=== PATIENT | female | born 1935 | race Caucasian/White ===

== ENCOUNTER 2017-09-03 10:56 | Observation (INO) ==
--- NOTE | 2017-09-03 12:18 | Emergency Department Note ---
Disposition Clinical Impression: Abdominal wall abscess at site of surgical wound Disposition: Admitted As Inpatient Condition: Fair Time of Disposition: 15:26 Abdominal Pain HPI - General Chief Complaint: ED Abdominal Pain Stated Complaint: surgical site pain/complication Time Seen by Provider: 09/03/17 11:26 Source: patient Mode of arrival: ambulatory Nursing Notes Reviewed: Yes Vital Signs Reviewed: Yes - History of Present Illness HPI Narrative: 81-year-old female presents of the emergency department for assessment of ongoing pain, redness, swelling at surgical sites post emergent open appendectomy on 08/17/17. Surgical sites have been tender and mildly erythematous throughout post op course. Patient tells me redness and tenderness are progressively worsening particularly in the last 2 days. She has been having fevers, chills, sweats, and tells me patient has had some confusion over the past 2 days. Has completed course of ciprofloxacin and is currently on PO bactrim. Patient has also had nausea, vomiting, and anorexia for 2 days. Pt Subjective Complaint: abdominal pain (They mainly localizes to surgical sites , i.e., periumbilical trocar site as well as right lower quadrant incisional site.) Onset (ago): week(s) Pain Scale: 7 Worsens with: other (Direct palpation) Associated symptoms: Reports: nausea, vomiting, fever, chills, anorexia. Denies : diarrhea, constipation, dysuria, hematemesis, hematochezia, melena, hematuria , syncope Treatments prior to arrival: none (has not tried anything today for this pain.) - Related Data Home Medications Medication Instructions Recorded Confirmed Iodine [Kelp] 150 mcg PO DAILY 09/03/17 09/03/17 Methyl Folate 400 mcg PO DAILY 09/03/17 09/03/17 Oxycodone HCl/Acetaminophen 1 - 2 each PO Q4H PRN 09/03/17 09/03/17 [Percocet 10-325 mg Tablet] Sulfamethoxazole/Trimeth DS 1 each PO BID 09/03/17 09/03/17 [Bactrim DS] Thyroid,Pork [[place] Thyroid] 60 mg PO DAILY 09/03/17 09/03/17 hydrOXYzine pamoate [HydrOXYzine 25 mg PO HS 09/03/17 09/03/17 Pamoate] Allergies Allergy/AdvReac Type Severity Reaction Status Date / Time No Known Allergies Allergy Verified 09/03/17 11:02 Review of Systems: As Per HPI Constitutional: Reports: fever, chills Eyes: Denies: vision change Cardiovascular: Denies: chest pain, palpitations Respiratory: Denies: cough, dyspnea Neurological: Reports: confusion. Denies: headache, vertigo Abdominal Pain PMH - Past Medical History Medical history: Reports: thyroid disease Female Surgical History: Reports: appendectomy (08/17/17), knee replacement - Social History Smoking status: Former smoker Alcohol use: Reports: rarely Drug use: Reports: none Physical Exam - General Limitations: no limitations General appearance: alert, in no apparent distress - Head Head exam: atraumatic, normocephalic - Eye Eye exam: Present: PERRL, EOMI. Absent: scleral icterus, conjunctival injection - ENT ENT exam: mucous membranes moist - Respiratory Respiratory exam: Present: normal lung sounds bilaterally - Cardiovascular Cardiovascular exam: Absent: systolic murmur, diastolic murmur - Abdominal Exam Abdominal exam: Present: soft, tenderness (Localizing to erythematous surgical site areas.), hypoactive bowel sounds, other (Patient has some notable erythema and induration around periumbilical trocar site; this region of swelling is not fluctuate on palpation.). Absent: distention, guarding, rebound, rigidity - Extremities Exam Extremities exam: Absent: pedal edema - Neurological Exam Neurological exam: Present: alert, other (Espresso some uncertainty about the specific date of her surgery; is concerned the patient has been somewhat confused over this time course.) - Psychiatric Psychiatric exam: Present: normal affect - Skin Skin exam: Present: warm, dry, intact. Absent: diaphoresis, pallor Course Course Narrative: Patient is having ongoing and significant pain that seems to be worsening since her surgery to a half weeks ago. Pain is exquisite and worse with direct palpation and movement that affects the localized area of inflammation. Patient does have tenderness on palpation. Patient has also had some confusion , fevers, chills, and malaise. Will start on IV antibiotics and get abdominal CT. - Reevaluation(s) Reevaluation #1: patient is comfortable. Discussed CT results which demonstrated anterior abdominal wall abscess which will likely need to be incised and drained by general surgeon. Patient is agreeable to be admitted for further IV antibiotics and surgical consult. Time: 15:19 - Consultations Consultation #1: Paged and spoke to Dr. Healy. Patient and family are highly opposed to transfer to [facility] and prefer to stay here for further therapy. Discussed case with Dr. Healy; she agrees to consult on case upon admission to medicine. Time: 15:00 Consultation #2: Discussed case with Dr. Wild, hospitalist. Accepts patient for continued antibiotic therapy and surgical consultation. Vital Signs Temperature 100.1 F H 09/03/17 11:02 Pulse Rate 67 09/03/17 11:02 Respiratory Rate 18 09/03/17 11:02 Blood Pressure 127/61 09/03/17 11:02 O2 Sat by Pulse Oximetry 96 09/03/17 11:02 Temperature 98.3 F 09/03/17 23:07 Pulse Rate 71 09/03/17 23:07 Respiratory Rate 18 09/03/17 23:07 Blood Pressure 116/60 09/03/17 23:07 O2 Sat by Pulse Oximetry 96 09/03/17 23:07 Oxygen Delivery Oxygen Delivery Room Air Abdominal Pain - MDM Narrative Medical decision making narrative: Patient's apparent abdominal wall cellulitis/abscess has not responded to OP oral antibiotics. Patient has also been having some confusion during this time period. Will admit to hospitalist service for ongoing antibiotic therapy as well as to seek surgical consult for infection source control. - Lab Data Lab results reviewed: Yes I reviewed the patient's lab results. Lab results narrative: Laboratory Last Values WBC 10.7 K/mcL (4.3-11.1) 09/03/17 12:21 RBC 3.93 M/mcL (3.82-4.97) 09/03/17 12:21 Hgb 11.0 g/dL (11.5-15.4) L 09/03/17 12:21 Hct 34.5 % (35.3-44.9) L 09/03/17 12:21 MCV 87.8 fL (83.0-100.0) 09/03/17 12:21 MCH 28.0 pg (28.0-33.3) 09/03/17 12:21 MCHC 31.9 g/dL (31.6-35.5) 09/03/17 12:21 RDW 13.2 % (11.5-14.5) 09/03/17 12:21 Plt Count 300 K/mcL (140-400) 09/03/17 12:21 MPV 10.2 fL (9.4-12.4) 09/03/17 12:21 Immature Gran % 0.3 % (0-4) 09/03/17 12:21 Seg Neutrophils % 73.9 % 09/03/17 12:21 Lymphocytes % 12.8 % 09/03/17 12:21 Monocytes % 11.9 % 09/03/17 12:21 Eosinophils % 0.7 % 09/03/17 12:21 Basophils % 0.4 % 09/03/17 12:21 Neutrophils # 7.9 K/mcL (1.6-8.9) 09/03/17 12:21 Lymphocytes # 1.4 K/mcL (0.6-4.6) 09/03/17 12:21 Monocytes # 1.3 K/mcL (0.0-1.3) 09/03/17 12:21 Eosinophils # 0.1 K/mcL (0.0-0.6) 09/03/17 12:21 Basophils # 0.0 K/mcL (0.0-0.2) 09/03/17 12:21 Sodium 134 mEq/L (136-145) L 09/03/17 12:21 Potassium 4.7 mEq/L (3.5-4.5) H 09/03/17 12:21 Chloride 100 mEq/L (98-109) 09/03/17 12:21 Carbon Dioxide 27 mEq/L (19-29) 09/03/17 12:21 BUN 15 mg/dL (7-20) 09/03/17 12:21 Creatinine 0.79 mg/dL (0.57-1.11) 09/03/17 12:21 Est GFR ( Amer) > 60 (> 60) 09/03/17 12:21 Est GFR (Non-Af Amer) > 60 (> 60) 09/03/17 12:21 BUN/Creatinine Ratio 19 (6-26) 09/03/17 12:21 Glucose 114 mg/dL (70-99) H 09/03/17 12:21 Calculated Osmolality 280 (280-300) 09/03/17 12:21 Lactic Acid 1.0 mmol/L (0.5-2.2) 09/03/17 12:23 Calcium 8.8 mg/dL (8.6-10.8) 09/03/17 12:21 Total Bilirubin 0.6 mg/dL (0.2-1.2) 09/03/17 12:21 AST 12 Units/L (5-34) 09/03/17 12:21 ALT 10 Units/L (0-55) 09/03/17 12:21 Alkaline Phosphatase 57 Units/L (38-126) 09/03/17 12:21 Serum Total Protein 6.8 g/dL (6.0-8.3) 09/03/17 12:21 Albumin 2.9 g/dL (3.5-5.0) L 09/03/17 12:21 Globulin 3.9 g/dL (2.4-3.5) H 09/03/17 12:21 Albumin/Globulin Ratio 0.7 (1.1-2.2) L 09/03/17 12:21 Laboratory Last Values WBC 10.7 K/mcL (4.3-11.1) 09/03/17 12:21 RBC 3.93 M/mcL (3.82-4.97) 09/03/17 12:21 Hgb 11.0 g/dL (11.5-15.4) L 09/03/17 12:21 Hct 34.5 % (35.3-44.9) L 09/03/17 12:21 MCV 87.8 fL (83.0-100.0) 09/03/17 12:21 MCH 28.0 pg (28.0-33.3) 09/03/17 12:21 MCHC 31.9 g/dL (31.6-35.5) 09/03/17 12:21 RDW 13.2 % (11.5-14.5) 09/03/17 12:21 Plt Count 300 K/mcL (140-400) 09/03/17 12:21 MPV 10.2 fL (9.4-12.4) 09/03/17 12:21 Immature Gran % 0.3 % (0-4) 09/03/17 12:21 Seg Neutrophils % 73.9 % 09/03/17 12:21 Lymphocytes % 12.8 % 09/03/17 12:21 Monocytes % 11.9 % 09/03/17 12:21 Eosinophils % 0.7 % 09/03/17 12:21 Basophils % 0.4 % 09/03/17 12:21 Neutrophils # 7.9 K/mcL (1.6-8.9) 09/03/17 12:21 Lymphocytes # 1.4 K/mcL (0.6-4.6) 09/03/17 12:21 Monocytes # 1.3 K/mcL (0.0-1.3) 09/03/17 12:21 Eosinophils # 0.1 K/mcL (0.0-0.6) 09/03/17 12:21 Basophils # 0.0 K/mcL (0.0-0.2) 09/03/17 12:21 Sodium 134 mEq/L (136-145) L 09/03/17 12:21 Potassium 4.7 mEq/L (3.5-4.5) H 09/03/17 12:21 Chloride 100 mEq/L (98-109) 09/03/17 12:21 Carbon Dioxide 27 mEq/L (19-29) 09/03/17 12:21 BUN 15 mg/dL (7-20) 09/03/17 12:21 Creatinine 0.79 mg/dL (0.57-1.11) 09/03/17 12:21 Est GFR ( Amer) > 60 (> 60) 09/03/17 12:21 Est GFR (Non-Af Amer) > 60 (> 60) 09/03/17 12:21 BUN/Creatinine Ratio 19 (6-26) 09/03/17 12:21 Glucose 114 mg/dL (70-99) H 09/03/17 12:21 Calculated Osmolality 280 (280-300) 09/03/17 12:21 Lactic Acid 1.0 mmol/L (0.5-2.2) 09/03/17 12:23 Calcium 8.8 mg/dL (8.6-10.8) 09/03/17 12:21 Total Bilirubin 0.6 mg/dL (0.2-1.2) 09/03/17 12:21 AST 12 Units/L (5-34) 09/03/17 12:21 ALT 10 Units/L (0-55) 09/03/17 12:21 Alkaline Phosphatase 57 Units/L (38-126) 09/03/17 12:21 Serum Total Protein 6.8 g/dL (6.0-8.3) 09/03/17 12:21 Albumin 2.9 g/dL (3.5-5.0) L 09/03/17 12:21 Globulin 3.9 g/dL (2.4-3.5) H 09/03/17 12:21 Albumin/Globulin Ratio 0.7 (1.1-2.2) L 09/03/17 12:21 Result diagrams: 09/03/17 12:21 09/03/17 12:21 Lab Results 09/03/17 09/03/17 09/03/17 Range/Units 12:21 12:21 12:23 WBC 10.7 (4.3-11.1) K/mcL RBC 3.93 (3.82-4.97) M/mcL Hgb 11.0 L (11.5-15.4) g/dL Hct 34.5 L (35.3-44.9) % MCV 87.8 (83.0-100.0) fL MCH 28.0 (28.0-33.3) pg MCHC 31.9 (31.6-35.5) g/dL RDW 13.2 (11.5-14.5) % Plt Count 300 (140-400) K/mcL MPV 10.2 (9.4-12.4) fL Immature Gran % 0.3 (0-4) % Seg Neutrophils % 73.9 % Lymphocytes % 12.8 % Monocytes % 11.9 % Eosinophils % 0.7 % Basophils % 0.4 % Neutrophils # 7.9 (1.6-8.9) K/mcL Lymphocytes # 1.4 (0.6-4.6) K/mcL Monocytes # 1.3 (0.0-1.3) K/mcL Eosinophils # 0.1 (0.0-0.6) K/mcL Basophils # 0.0 (0.0-0.2) K/mcL Sodium 134 L (136-145) mEq/L Potassium 4.7 H (3.5-4.5) mEq/L Chloride 100 (98-109) mEq/L Carbon Dioxide 27 (19-29) mEq/L BUN 15 (7-20) mg/dL Creatinine 0.79 (0.57-1.11) mg/dL Est GFR ( Amer) > 60 (> 60) Est GFR (Non-Af Amer) > 60 (> 60) BUN/Creatinine Ratio 19 (6-26) Glucose 114 H (70-99) mg/dL Calculated Osmolality 280 (280-300) Lactic Acid 1.0 (0.5-2.2) mmol/L Calcium 8.8 (8.6-10.8) mg/dL Total Bilirubin 0.6 (0.2-1.2) mg/dL AST 12 (5-34) Units/L ALT 10 (0-55) Units/L Alkaline Phosphatase 57 (38-126) Units/L Serum Total Protein 6.8 (6.0-8.3) g/dL Albumin 2.9 L (3.5-5.0) g/dL Globulin 3.9 H (2.4-3.5) g/dL Albumin/Globulin Ratio 0.7 L (1.1-2.2) - Radiology Data Radiology results reviewed: Yes I reviewed the patient's radiology results. Abdomen/Pelvis CT 09/03/17 12:00 IMPRESSION: Focal fluid collection measuring 6.2 x 6 x 5.2 cm in the right anterior abdominal wall likely at the incision site from recent prior open appendectomy. Given the mild rim enhancement and surrounding inflammatory changes of the subcutaneous fat, abscess of the abdominal wall is high in the differential. No evidence of intraperitoneal abscess. Postsurgical changes status post recent appendectomy. D/ / 09/03/2017 14:08:14 Aiden Clements MD / kirstin Interpreting Provider: Aiden Clements MD
--- NOTE | 2017-09-03 12:25 | Emergency Department Note ---
START Narrative - START START: I examined this patient and my medical decision-making was reviewed with the LEASE OPERATOR/PA/Advanced Practice Nurse/Resident Physician. I agree with the documented findings, disposition and treatment plan as described except to the extent set forth below. The patient is post appendectomy several weeks ago and does have a very concerning story that she has had temperature reaching 101 degrees, hot and red abdomen which is mostly present around the umbilicus but also extends to both sides of the lower abdomen, she has been mildly confused according to the . My concerns for infection and the patient will have labs including lactate level, IV fluids, the patient will be admitted to the hospital. CT scan as well as ongoing assessment are pending. [id number]
[2017-09-03] MEDS ORDERED: 0.9 % Sodium Chloride 1,000 ML IVC ONE (12:40)
[2017-09-03] MEDS ORDERED: Vancomycin 1,000 MG in D5% in Water 250 ML IVPB ONE (12:40)
[2017-09-03 12:46] LABS: Basophils % 0.4 %; Eosinophils # 0.1 K/mcL (0.0-0.6); Eosinophils % 0.7 %; Hematocrit 34.5 % (35.3-44.9); Immature Granulocytes % 0.3 % (0-4); Lymphocytes # 1.4 K/mcL (0.6-4.6); Lymphocytes % 12.8 %; Mean Corpuscular HGB Conc 31.9 g/dL (31.6-35.5); Mean Corpuscular Volume 87.8 fL (83.0-100.0); Mean Platelet Volume 10.2 fL (9.4-12.4); Monocytes # 1.3 K/mcL (0.0-1.3); Monocytes % 11.9 %; Neutrophils # 7.9 K/mcL (1.6-8.9); Platelet Count 300 K/mcL (140-400); Red Blood Count 3.93 M/mcL (3.82-4.97); Red Cell Distribution Width 13.2 % (11.5-14.5); Segmented Neutrophils % 73.9 %
[2017-09-03 13:00] LABS: Alanine Aminotransferase 10 Units/L (0-55); Albumin 2.9 g/dL (3.5-5.0); Albumin/Globulin Ratio 0.7 (1.1-2.2); Alkaline Phosphatase 57 Units/L (38-126); Aspartate Amino Transferase 12 Units/L (5-34); BUN/Creatinine Ratio 19 (6-26); Bilirubin,Total 0.6 mg/dL (0.2-1.2); Blood Urea Nitrogen 15 mg/dL (7-20); Calcium 8.8 mg/dL (8.6-10.8); Carbon Dioxide 27 mEq/L (19-29); Chloride 100 mEq/L (98-109); Globulin 3.9 g/dL (2.4-3.5); Glucose 114 mg/dL (70-99); Osmolality,Calculated 280 (280-300); Potassium 4.7 mEq/L (3.5-4.5); Sodium 134 mEq/L (136-145); Total Protein 6.8 g/dL (6.0-8.3); eGFR For African Americans > 60 (> 60); eGFR For Non-African Americans > 60 (> 60)
[2017-09-03] MEDS: Piperacillin/Tazobactam 3.375 GM in D5% in Water (Mini-Bag+) 100 ML IVPB ONE ×2 (13:09→14:17)
[2017-09-03] MEDS ORDERED: D5% in Water (Mini-Bag+) 100 ML IVPB ONE (13:16)
[2017-09-03] MEDS: 0.9 % Sodium Chloride 1,000 ML IVC SCH ×2 (14:05→17:33)
--- NOTE | 2017-09-03 16:23 | Event Note ---
Date of Encounter: 09/03/17 Time of Encounter: 16:22 Patient examined with nurse practitioner. Abdominal wall abscess status post open appendectomy. Will give the patient vancomycin and Zosyn. Surgery consult. Symptomatic management for pain and nausea. Hydrate.
[2017-09-03] MEDS ORDERED: Lidocaine/EPI 1:100k 2% 20 ML VIAL INFILT ONE (16:26)
[2017-09-03] MEDS ORDERED: Lidocaine -MPF 2% 5 ML VIAL ONE (16:33)
[2017-09-03] MEDS ORDERED: Ondansetron 4 MG/2 ML VIAL IVP PRN (17:01)
[2017-09-03] MEDS ORDERED: Naloxone 0.4 MG/ML INJ IVP PRN (17:01)
[2017-09-03] MEDS ORDERED: *HR* Morphine 2 MG/ML SYRINGE IVP PRN (17:01)
[2017-09-03] MEDS ORDERED: *HR* OxyCODONE/APAP 5/325 TABLET PO PRN (17:04)
--- NOTE | 2017-09-03 17:14 | Internal Med History&Physical ---
Date of Encounter: 09/03/17 Time of Encounter: 17:10 Assessment and Plan (1) Abdominal wall abscess at site of surgical wound Current visit: Yes Status: Acute S/P appendectomy, surgical site pain, erythema, and tenderness, 6.2x 6x 5.2cm abscess found via CT abdomen. She does not appear toxic, CBC and CMP stable. Surgery consulted for drainage. Surgery at bedside in ED to perform drainage, abdomen soft with minimal amount of SS drainage s/p incision and drain Continue Vanc and Zosyn Cardiac monitoring (2) S/P appendectomy Current visit: Yes Status: Acute see plan above (3) Hypothyroidism Current visit: Yes Status: Acute stable, resume home medications Qualifiers: Qualified Code(s): E03.9 - Hypothyroidism, unspecified (4) DVT prophylaxis Current visit: Yes Status: Acute lovenox 40mg SC Internal Medicine - H&P: HPI Chief complaint: pain and erythema at surgical site Admitted From: Home Plans for Post Hospital Care: Home History of present illness: Ms. Reddy is a 81 year old female with hypothyroidism, who is 3 weeks s/p appendectomy. Presents to [facility] with a one-week history of pain, erythema and swelling at surgical site. The patient endorses fever, chills, sweats, nausea and vomiting as well as pain and surgical sites. A CT of the abdomen and pelvis was obtained which revealed an abscess in the right anterior abdominal wall measuring approximately 6.2 x 6 x 5.2 cm. The patient does not appear toxic CBC and CMP unremarkable. Admitted for further monitoring and surgical consult for drainage of abscess Past Med Surg Social Fam HX - Past Medical History Medical history: thyroid disease - Social History Smoking Status: Former smoker Alcohol use: rarely Drug use: none - Additional Family History Additional family history: Noncontributory Internal Medicine - H&P: Meds Iodine [Kelp] 150 mcg PO DAILY 09/03/17 [History] Methyl Folate 400 mcg PO DAILY 09/03/17 [History] Oxycodone HCl/Acetaminophen [Percocet 10-325 mg Tablet] 1 - 2 each PO Q4H PRN [History] Sulfamethoxazole/Trimeth DS [Bactrim DS] 1 each PO BID 09/03/17 [History] Thyroid,Pork [[place] Thyroid] 60 mg PO DAILY 09/03/17 [History] hydrOXYzine pamoate [HydrOXYzine Pamoate] 25 mg PO HS 09/03/17 [History] 3 Allergy/AdvReac Type Severity Reaction Status Date / Time No Known Allergies Allergy Verified 09/03/17 11:02 All Systems PM: A 10-system review of systems was performed and is negative for pertinent findings except as documented above in the HPI. - Constitutional Constitutional: chills, fever(s), no night sweats - EENT Eyes: no change in vision, no discharge, no pain, no photophobia Ears: no ear discharge, no ear pain, no tinnitus Nose, mouth and throat: no dysphagia, no nasal discharge, no neck pain, no sore throat - Cardiovascular Cardiovascular ROS IM: no chest pain, no diaphoresis, no dyspnea, no lightheadedness, no palpitations, no syncope - Respiratory Respiratory: no cough, no dyspnea, no wheezing, no excessive phlegm production - Gastrointestinal Gastrointestinal: abdominal pain, nausea, vomiting, no diarrhea, no hematemesis , no hematochezia, no melena - Genitourinary Genitourinary: no change in urinary stream, no dysuria, no flank pain, no hematuria - Musculoskeletal Musculoskeletal ROS IM: no numbness, no tingling - Integumentary Integumentary IM: erythema, no rash, no unusual bruising - Neurological Neurological ROS: no confusion, no convulsions, no focal weakness, no numbness, no tingling, no tremor(s) - Hematologic/Lymphatic Hematologic/Lymphatic: no easy bruising - Constitutional Vitals: Temp Pulse Resp BP Pulse Ox 100.1 F H 75 16 131/64 93 09/03/17 11:02 09/03/17 15:16 09/03/17 15:59 09/03/17 15:59 09/03/17 15:16 General appearance: Present: cooperative, A&O X 3, no acute distress, answers questions appropriately - Head Head exam: Present: atraumatic, normocephalic - Eye Eye exam: Present: EOMI, PERRL, conjuntiva pink, sclera anicteric Pupils: Present: PERRL - Neck Neck exam general surgery: Present: supple, trachea midline. Absent: lymphadenopathy - Respiratory Respiratory exam: Present: CTAB. Absent: accessory muscle use, rales, rhonchi, wheezes - Cardiovascular Cardiovascular exam: Present: RRR, +S1, +S2. Absent: diastolic murmur, gallop, rubs, systolic murmur - GI/Abdominal GI/Abdominal exam: Present: normal bowel sounds, soft, tenderness ( Periumbilical and left and right abdominal tenderness to palpation), no peritoneal signs. Absent: distended - Extremities Exam Extremities exam: Present: warm, radial pulses palpable and symmetrical. Absent : calf tenderness, cyanotic, pedal edema - Incison Incision: Present: inflamed, erythema, approximated - Neurological Exam Neurological exam: Present: CN II-XII intact, oriented X3, no focal deficits. Absent: pronater drift, facial droop, speech deficit - Skin Skin exam: Present: dry, intact Internal Med - H&P Results - Labs CBC & Chem 7: 09/03/17 12:21 09/03/17 12:21 - Diagnostic Studies CT scan - abdomen Status: image reviewed by me Additional comments: Fluid collection in right anterior abdominal wall approximately 6.2 x 6 x 5.2 cm likely an abscess status post open appendectomy
[2017-09-03] MEDS: *HR* OxyCODONE/APAP 10/325 TABLET PO PRN (17:33)
--- NOTE | 2017-09-03 18:02 | General Surgery Consult Note ---
<Alisa Vega - Last Filed: 09/03/17 18:25> Date of Encounter: 09/03/17 Time of Encounter: 17:03 Assessment and Plan (1) Abdominal wall abscess Current Visit: Yes Status: Acute Patient is s/p appendectomy 2/2 a ruptured appendix on 08/17/17. Patient has had fevers, chills, abdominal pain and redness. Vitals stable documented fever 100.1. WBC wnl. CT abdomen showed Focal fluid collection measuring 6.2 x 6 x 5.2 cm in the right anterior abdominal wall likely at the incision site from recent prior open appendectomy. Patient's abdominal wall abscess was incised and drained in the ER by Dr. Healy. Abscess cultures were obtained and sent to the lab. Gram stain came back negative for bacteria. Will repeat CT in the morning to see if entire abscess was accessed and no further I&D needed. Plan: -continue antibiotics, Zosyn - CT of the abdomen/pelvis in the morning - Wound cultures pending - Blood cultures pending (2) DVT prophylaxis Current Visit: Yes Status: Acute Lovenox 40mg SQ daily History of Present Illness Consult date: 09/03/17 Reason for consult: other (abdominal wall abscess) Requesting physician: Jackson Corrales History of present illness: Patient is a 81-year-old female with with a recent diagnosis of ruptured appendicitis and appendectomy on 08/17/17 presented to the ED with a chief complaint of increased redness and pain at the surgical sites and new onset of being disoriented per her daughter found to have an abdominal wall abscess. Patient was sent home from the hospital after 08/21/17 on ciprofloxacin after being on Zosyn during the hospital stay. Fpur days ago, patient began to develop a fever with a max of 102F and began having sharp shooting pains into her cervical area. She saw the surgeon yesterday and patient was diagnosed with a UTI and given Bactrim DS. Patient denies dysuria but did notice darkening in color of urine. Yesterday, she did have some N/V, fevers, chills and has had no appetite. Today, patient has been disoriented and daughter says she is never like that. CT of abdomen and pelvis showed Focal fluid collection measuring 6.2 x 6 x 5.2 cm in the right anterior abdominal wall. Patient was given Zosyn and Vancomycin in the ED and IV fluids started. Past Med Surg Social Fam HX - Past Medical History Medical history: thyroid disease - Past Surgical History Surgical History: appendectomy (open ), knee replacement (bilateral) - Social History Smoking Status: Former smoker (over 30 years ago) Alcohol use: rarely Drug use: none Medications and Allergies Iodine [Kelp] 150 mcg PO DAILY 09/03/17 [History] Methyl Folate 400 mcg PO DAILY 09/03/17 [History] Oxycodone HCl/Acetaminophen [Percocet 10-325 mg Tablet] 1 - 2 each PO Q4H PRN [History] Sulfamethoxazole/Trimeth DS [Bactrim DS] 1 each PO BID 09/03/17 [History] Thyroid,Pork [[place] Thyroid] 60 mg PO DAILY 09/03/17 [History] hydrOXYzine pamoate [HydrOXYzine Pamoate] 25 mg PO HS 09/03/17 [History] 3 Allergy/AdvReac Type Severity Reaction Status Date / Time No Known Allergies Allergy Verified 09/03/17 11:02 Review of Systems All systems PM: A 10-system review of systems was performed and is negative for pertinent findings except as documented above in the HPI. - Constitutional as per HPI General Surgery Exam Initial Vital Signs Temp Pulse Resp BP Pulse Ox 100.1 F H 67 18 127/61 96 09/03/17 11:02 09/03/17 11:02 09/03/17 11:02 09/03/17 11:02 09/03/17 11:02 - Additional Findings Constitutional: Alert, A&O x3, answering some questions incorrectly per daughter , has to be redirected with some questions, well nourished, well developed. Head: Normocephalic, atraumatic, normal contour and symmetric, no masses, lesions or scars Heart: Normal, regular rate and rhythm, no murmurs Lungs: Clear to auscultation, no wheezes, rales, or rhonchi Abdomen: redness, increased warmth, and tenderness in LLQ, area of induration with no flucuant mass felt, Soft, nondistended and no masses palpable, bowel sounds present and normal, no guarding or rigidity. Extremities: No clubbing, cyanosis, +1 non-pitting edema, radial pulse +2/4, capillary refill <2sec. Skin: Skin warm and dry, no jaundice Neurologic: Cranial nerves II through XII grossly intact, no focal deficits, strength within normal limits in all extremities Psych: Cooperative with exam, speech clear but sometime slow to respond, answering some questions appropriately but some in appropriately or delayed Exam Initial Vital Signs Temp Pulse Resp BP Pulse Ox 100.1 F H 67 18 127/61 96 09/03/17 11:02 09/03/17 11:02 09/03/17 11:02 09/03/17 11:02 09/03/17 11:02 Results - Labs 09/03/17 12:21 09/03/17 12:21 Abnormal lab results Hgb 11.0 g/dL (11.5-15.4) L 09/03/17 12:21 Hct 34.5 % (35.3-44.9) L 09/03/17 12:21 Sodium 134 mEq/L (136-145) L 09/03/17 12:21 Potassium 4.7 mEq/L (3.5-4.5) H 09/03/17 12:21 Glucose 114 mg/dL (70-99) H 09/03/17 12:21 Albumin 2.9 g/dL (3.5-5.0) L 09/03/17 12:21 Globulin 3.9 g/dL (2.4-3.5) H 09/03/17 12:21 Albumin/Globulin Ratio 0.7 (1.1-2.2) L 09/03/17 12:21 All other labs normal. - Imaging CT scan - abdomen: report reviewed, image reviewed Procedures: General Surgery - Abscess I/D Consent obtained: written consent Site: abdomen Side (if applicable): left Anesthetic used: lidocaine 1% Technique: incised with #11 blade Amount of fluid: 50 (ml ) Irrigation: Yes Irrigation fluid: saline flush Packing used: .50 inch plain Packing size: 1/2" Complications: none Consult Discharge Plan - Plan Referrals: Nurys Antunez MD [Primary Care Provider] - 09/22/17 2:40 pm <Rosa Healy - Last Filed: 09/04/17 16:41> Date of Encounter: 09/03/17 Assessment and Plan (1) Abdominal wall abscess at site of surgical wound Current Visit: Yes Status: Acute discussed with patient that she has abscess of abdominal wall soft tissue. will undergo bedside incision and drainage of abscess. risks and benefits discussed with patient and her daughter admit to hospitalist ok diet prn pain control Abx trend labs (2) Cellulitis of abdominal wall Current Visit: Yes Status: Acute (3) DVT prophylaxis Current Visit: Yes Status: Acute (4) S/P appendectomy Current Visit: Yes Status: Acute History of Present Illness History of present illness: 81 yr old female who underwent a lap converted to open appendectomy for gangrenous appendicitis 2 weeks ago at [facility] in [place]. She presented to her surgeon yesterday with complaints of erythema, warmth and pain to the infraumbilical area yesterday. She was told she was bruised and no antibiotics or imaging was ordered. Patient began having mental status changes and was brought to the ED by her daughter who is visiting from out of town and is a nurse. CT scan in the ED was done showing a subcutaneous abscess of the abdominal wall. WBC wnl. Past Med Surg Social Fam HX - Past Medical History Source: patient, obtained from family Review of Systems All systems PM: reviewed and no additional remarkable complaints except as stated All systems PM: A 10-system review of systems was performed and is negative for pertinent findings except as documented above in the HPI. - Constitutional as per HPI General Surgery Exam Initial Vital Signs Temp Pulse Resp BP Pulse Ox 100.1 F H 67 18 127/61 96 09/03/17 11:02 09/03/17 11:02 09/03/17 11:02 09/03/17 11:02 09/03/17 11:02 - General physical appearance well developed, well nourished, no distress, moderate pain - Eyes PERRL, normal ocular movement - ENT normal mucosa, normocephalic - Neck trachea midline - Respiratory normal expansion, normal respiratory effort - Cardiovascular Cardiovascular exam: Present: tachycardia - Abdomen Abdomen general surgery: Present: soft, tender (distended below umbilicus, indurated, erythematous and tender) - Incision Incision: Present: clean and dry, intact - Integumentary Integumentary general surgery: Present: warm and dry - Neurologic Present: CN 2-12 grossly intact - Musculoskeletal Present: normal posture - Psychiatric Psychiatric general surgery: Present: other (confused) Exam Initial Vital Signs Temp Pulse Resp BP Pulse Ox 100.1 F H 67 18 127/61 96 09/03/17 11:02 09/03/17 11:02 09/03/17 11:02 09/03/17 11:02 09/03/17 11:02 Results - Labs 09/04/17 03:45 09/04/17 03:45 Abnormal lab results RBC 3.54 M/mcL (3.82-4.97) L 09/04/17 03:45 Hgb 9.8 g/dL (11.5-15.4) L 09/04/17 03:45 Hct 31.1 % (35.3-44.9) L 09/04/17 03:45 MCH 27.7 pg (28.0-33.3) L 09/04/17 03:45 MCHC 31.5 g/dL (31.6-35.5) L 09/04/17 03:45 Glucose 152 mg/dL (70-99) H 09/04/17 03:45 POC Glucose 113 (58-89) H 09/04/17 08:01 Calcium 8.2 mg/dL (8.6-10.8) L 09/04/17 03:45 Albumin 2.9 g/dL (3.5-5.0) L 09/03/17 12:21 Globulin 3.9 g/dL (2.4-3.5) H 09/03/17 12:21 Albumin/Globulin Ratio 0.7 (1.1-2.2) L 09/03/17 12:21 Diabetes panel 09/04/17 Range/Units 03:45 Sodium 136 (136-145) mEq/L Potassium 4.5 (3.5-4.5) mEq/L Chloride 103 (98-109) mEq/L Carbon Dioxide 28 (19-29) mEq/L BUN 13 (7-20) mg/dL Creatinine 0.72 (0.57-1.11) mg/dL Glucose 152 H (70-99) mg/dL Calcium 8.2 L (8.6-10.8) mg/dL Calcium panel 09/04/17 Range/Units 03:45 Calcium 8.2 L (8.6-10.8) mg/dL Pituitary panel 09/04/17 Range/Units 03:45 Sodium 136 (136-145) mEq/L Potassium 4.5 (3.5-4.5) mEq/L Chloride 103 (98-109) mEq/L Carbon Dioxide 28 (19-29) mEq/L BUN 13 (7-20) mg/dL Creatinine 0.72 (0.57-1.11) mg/dL Glucose 152 H (70-99) mg/dL Calcium 8.2 L (8.6-10.8) mg/dL Adrenal panel 09/04/17 Range/Units 03:45 Sodium 136 (136-145) mEq/L Potassium 4.5 (3.5-4.5) mEq/L Chloride 103 (98-109) mEq/L Carbon Dioxide 28 (19-29) mEq/L BUN 13 (7-20) mg/dL Creatinine 0.72 (0.57-1.11) mg/dL Glucose 152 H (70-99) mg/dL Calcium 8.2 L (8.6-10.8) mg/dL All other labs normal. - Imaging CT scan - abdomen: report reviewed CT scan - pelvis: report reviewed, image reviewed - Attending Attestation I examined this patient and my medical decision-making was reviewed with the Resident Physician. I agree with the documented findings, disposition and treatment plan as described except to the extent set forth below.
[2017-09-03] MEDS ORDERED: Acetaminophen IV 1,000 MG/100 ML INFUS..BTL IVPB ONE (18:30)
--- NOTE | 2017-09-03 18:30 | Event Note ---
Date of Encounter: 09/03/17 Time of Encounter: 18:25 Rapid response called, upon arrival the patient appears to have a mental status change from my initial exam. She is intermittently alert and appears to have episodes of innattention, with right gaze, would almost appear to be absence seizures, however, this is intermittent. Patient appears very confused and is unable to follow commands. There is concern for CVA and d/t recent I&D there is also concern for an intraabdominal bleed. Will CT head and abdomen for further evaluation.
[2017-09-03] MEDS ORDERED: *HR* Promethazine 25 MG/ML VIAL IVP PRN (20:53)
[2017-09-03] MEDS: Ondansetron 4 MG/2 ML VIAL IVP PRN (22:00)
[2017-09-03] MEDS: hydrOXYzine pamoate 25 MG CAPSULE PO SCH (22:01)
[2017-09-04] MEDS: Piperacillin/Tazobactam 3.375 GM in D5% in Water (Mini-Bag+) 100 ML IVPB SCH ×4 (00:17→20:29)
[2017-09-04] MEDS ORDERED: Vancomycin 1,500 MG in D5% in Water 250 ML IVPB SCH ×2 (01:00→09:00)
[2017-09-04 04:08] LABS: Basophils % 0.3 %; Eosinophils % 0.3 %; Hematocrit 31.1 % (35.3-44.9); Hemoglobin 9.8 g/dL (11.5-15.4); Immature Granulocytes % 0.6 % (0-4); Lymphocytes # 1.2 K/mcL (0.6-4.6); Lymphocytes % 12.9 %; Mean Corpuscular HGB Conc 31.5 g/dL (31.6-35.5); Mean Corpuscular Hemoglobin 27.7 pg (28.0-33.3); Mean Corpuscular Volume 87.9 fL (83.0-100.0); Mean Platelet Volume 10.1 fL (9.4-12.4); Monocytes # 1.1 K/mcL (0.0-1.3); Neutrophils # 6.6 K/mcL (1.6-8.9); Platelet Count 267 K/mcL (140-400); Red Blood Count 3.54 M/mcL (3.82-4.97); Red Cell Distribution Width 13.1 % (11.5-14.5); Segmented Neutrophils % 73.9 %
[2017-09-04 04:14] LABS: BUN/Creatinine Ratio 18 (6-26); Blood Urea Nitrogen 13 mg/dL (7-20); Calcium 8.2 mg/dL (8.6-10.8); Carbon Dioxide 28 mEq/L (19-29); Chloride 103 mEq/L (98-109); Glucose 152 mg/dL (70-99); Osmolality,Calculated 285 (280-300); Potassium 4.5 mEq/L (3.5-4.5); Sodium 136 mEq/L (136-145); eGFR For African Americans > 60 (> 60); eGFR For Non-African Americans > 60 (> 60)
[2017-09-04] MEDS: *HR* Enoxaparin 40 MG/0.4 ML SYRINGE SQ SCH (06:19)
[2017-09-04] MEDS ORDERED: THYROID PORK 60 MG PO SCH (09:00)
--- NOTE | 2017-09-04 09:59 | Internal Med Progress Note ---
Date of Encounter: 09/04/17 Time of Encounter: 09:56 - Assessment and plan (1) Cellulitis of abdominal wall Current Visit: Yes Status: Acute Assessment and plan: Cellulitis and abscess of abdominal wall at the site of laparoscopic wound. Patient recently underwent open appendectomy fr ruptured appendix. Underwent bedside incision and drainage by surgery yesterday, preliminary Gram stain shows no bacteria. CT abdomen/pelvis showed no change in the amount of fluid collection after the procedure. Incision and drainages repeated today at bedside by surgery. Follow up final wound and blood cultures and continue broad -spectrum IV antibiotics. (2) Abdominal wall abscess at site of surgical wound Current Visit: Yes Status: Acute Assessment and plan: CT abdomen/pelvis shows a 6 x 6 x 5 cm fluid collection in the anterior abdominal wall, concerning for abscess. Surgery consult and follow-up appreciated. Patient underwent incision and drainage twice. Continue local wound care per surgery recommendations with Iodoform packing. Pain control with when necessary IV morphine and oral hydrocodone. Continue broad-spectrum antibiotics-IV vancomycin and Zosyn and follow up final wound and blood cultures. (3) Hypothyroidism Current Visit: Yes Status: Chronic Assessment and plan: continue Levothyroxine. Qualifiers: Hypothyroidism type: unspecified Qualified Code(s): E03.9 - Hypothyroidism , unspecified (4) Sepsis Current Visit: Yes Status: Acute Assessment and plan: Patient presents with fever, tachycardia, altered mental status, secondary to abdominal wall cellulitis and abscess. Currently improving. Qualifiers: Sepsis type: sepsis due to unspecified organism Qualified Code(s): A41.9 - Sepsis, unspecified organism - Subjective Interval history: Improved mental status today, noted to be oriented; good appetite; low urine output; getting repeat I&D of abdominal wound by Surgery, at bedside. No nausea , vomiting, fever/chills. - Constitutional Vitals: Temp Pulse Resp BP Pulse Ox 97.8 F 71 20 129/83 91 09/04/17 02:42 09/04/17 02:42 09/04/17 02:42 09/04/17 02:42 09/04/17 02:42 General appearance: Present: mild distress, A&O X 3, answers questions appropriately - Respiratory Respiratory exam: Present: CTAB (anterolaterally). Absent: accessory muscle use , rales, rhonchi, wheezes - Cardiovascular Cardiovascular exam: Present: RRR, +S1, +S2. Absent: diastolic murmur, gallop, rubs, systolic murmur - GI/Abdominal GI/Abdominal exam: Present: normal bowel sounds, soft (infraumbilical wound with I&D with surrounding erythema, tenderness, induration; well-healing open RLQ surgical incision), no peritoneal signs. Absent: distended, tenderness - Extremities Exam Extremities exam: Present: full ROM, warm, radial pulses palpable and symmetrical. Absent: calf tenderness, cyanotic, pedal edema - Neurological Exam Neurological exam: Present: CN II-XII intact, oriented X3, no focal deficits. Absent: pronater drift, facial droop, speech deficit Internal Medicine: Result - Labs CBC & Chem 7: 09/04/17 03:45 09/04/17 03:45 Labs: Short CBC 09/04/17 Range/Units 03:45 WBC 8.9 (4.3-11.1) K/mcL Hgb 9.8 L (11.5-15.4) g/dL Hct 31.1 L (35.3-44.9) % Plt Count 267 (140-400) K/mcL Neutrophils # 6.6 (1.6-8.9) K/mcL BMP 09/04/17 03:45 Sodium 136 Potassium 4.5 Chloride 103 Carbon Dioxide 28 BUN 13 Creatinine 0.72 Glucose 152 H Calcium 8.2 L - Impressions Impressions Head CT 09/03/17 18:13 IMPRESSION: No acute intracranial abnormality. D/ / 09/03/2017 19:17:55 Urmila Ramsay MD / ziggy Interpreting Provider: Urmila Ramsay MD Abdomen/Pelvis CT 09/03/17 18:19 IMPRESSION: No significant change in size of the fluid collection in the anterior subcutaneous tissues. Packing material appears to project superficial to the collection. Large hiatal hernia. The configuration of the stomach in the hernia sac has changed, and a gas-filled portion of the stomach now protrudes into the abdomen adjacent to the previously seen intraperitoneal portion of the stomach. No wall thickening or perigastric inflammatory changes noted to suggest acute process. Upper GI exam may be useful in further clarifying the anatomy. D/ / 09/03/2017 19:48:15 Be Isabel MD / ziggy Interpreting Provider: Be Isabel MD Consult Discharge Plan - Plan Referrals: Nurys Antunez MD [Primary Care Provider] - 09/22/17 2:40 pm
[2017-09-04] MEDS ORDERED: Lidocaine -MPF 2% 5 ML VIAL ONE ×2 (10:11→10:14)
[2017-09-04] MEDS ORDERED: Lidocaine 1% 20 ML MDV ID ONE (10:11)
--- NOTE | 2017-09-04 10:47 | General Surgery Progress Note ---
<Mary Blancas Damion - Last Filed: 09/04/17 10:57> Date of Encounter: 09/04/17 Time of Encounter: 09:30 - Assessment and Plan (1) Abdominal wall abscess at site of surgical wound Current Visit: Yes Status: Acute Further I&D complete this am and decompression of large amount of purulent drainage noted New cultures obtained- send for gram stain, aerobic and anaerobic cultures IV antibiotics- vancomycin and zosyn Supportive care and pain control Daily wound care per surgery team- 1/2 inch iodoform packing Will continue to follow and assess progress (2) S/P appendectomy Current Visit: Yes Status: Acute Abscess development secondary to perforated appendicitis- s/p open appendectomy at [facility] Further I&D complete this am and decompression of large amount of purulent drainage noted New cultures obtained- send for gram stain, aerobic and anaerobic cultures IV antibiotics- vancomycin and zosyn Supportive care and pain control Daily wound care per surgery team- 1/2 inch iodoform packing Will continue to follow and assess progress (3) Cellulitis of abdominal wall Current Visit: Yes Status: Acute IV antibiotics- Zosyn and Vancomycin Surgery will continue to follow and assess progress (4) Hypothyroidism Current Visit: Yes Status: Chronic Qualifiers: Hypothyroidism type: unspecified Qualified Code(s): E03.9 - Hypothyroidism , unspecified (5) DVT prophylaxis Current Visit: Yes Status: Acute Lovenox SQ daily for DVT prophylaxis Ambulate hallways with assistance TID Subjective Patient reports: no new complaints, still having pain, tolerating a regular diet , voiding w/o difficulty, flatus, bowel movement (last BM 48 hours ago), fever ( Tmax 101.7; Tcurrent 97.8) Objective Vital Signs - Last 8 Hours Temp Resp BP Pulse Ox 09/04/17 07:25 97.8 F 20 129/83 91 Intake and Output 09/03/17 09/04/17 09/04/17 23:59 07:59 15:59 Intake Total 2250 / 2250 0 / 0 240 / 240 Output Total 0 / 0 350 / 350 Balance 2250 / 2250 0 / 0 -110 / -110 Intake: IV Fluids 2250 / 2250 0.9 % Sodium Chloride 1,000 ML 2000 / 2000 @ 125 mls/hr IVC .Q8H [facility] Rx#: [id number] Vancocin 1,000 MG In Dextrose 5 250 / 250 % 250 ML @ 167 mls/hr IVPB ONCE ONE Rx#:[id number] Oral 0 / 0 240 / 240 Output: Urine 0 / 0 350 / 350 Other: Meal Breakfast Percent of Meal Consumed 50% Blood Glucose* 164 113 - General physical appearance well developed, well nourished, no distress - Eyes normal ocular movement - ENT normal mucosa, atraumatic, normocephalic - Neck Neck exam: trachea midline - Respiratory normal respiratory effort, clear to auscultation - Cardiovascular Cardiovascular exam: Present: RRR - Abdomen Abdomen: Present: bowel sounds present, soft, tender (lower abdomen with palpation), wound (Serousang. drainge noted prior to further I&D this morning) - Neurologic CN 2-12 grossly intact - Psychiatric oriented to time, oriented to person, oriented to place, speech is normal, memory intact - Labs 09/04/17 03:45 09/04/17 03:45 Diabetes panel 09/04/17 Range/Units 03:45 Sodium 136 (136-145) mEq/L Potassium 4.5 (3.5-4.5) mEq/L Chloride 103 (98-109) mEq/L Carbon Dioxide 28 (19-29) mEq/L BUN 13 (7-20) mg/dL Creatinine 0.72 (0.57-1.11) mg/dL Glucose 152 H (70-99) mg/dL Calcium 8.2 L (8.6-10.8) mg/dL Calcium panel 09/04/17 Range/Units 03:45 Calcium 8.2 L (8.6-10.8) mg/dL Pituitary panel 09/04/17 Range/Units 03:45 Sodium 136 (136-145) mEq/L Potassium 4.5 (3.5-4.5) mEq/L Chloride 103 (98-109) mEq/L Carbon Dioxide 28 (19-29) mEq/L BUN 13 (7-20) mg/dL Creatinine 0.72 (0.57-1.11) mg/dL Glucose 152 H (70-99) mg/dL Calcium 8.2 L (8.6-10.8) mg/dL Adrenal panel 09/04/17 Range/Units 03:45 Sodium 136 (136-145) mEq/L Potassium 4.5 (3.5-4.5) mEq/L Chloride 103 (98-109) mEq/L Carbon Dioxide 28 (19-29) mEq/L BUN 13 (7-20) mg/dL Creatinine 0.72 (0.57-1.11) mg/dL Glucose 152 H (70-99) mg/dL Calcium 8.2 L (8.6-10.8) mg/dL Consult Discharge Plan - Plan Referrals: Nurys Antunez MD [Primary Care Provider] - 09/22/17 2:40 pm - Attending Attestation For this encounter, I have reviewed the [employer] or PA documentation, treatment plan, and medical decision making; and I have had face to face time with this patient. <Rosa Healy - Last Filed: 09/04/17 16:49> Date of Encounter: 09/04/17 - Assessment and Plan (1) Abdominal wall abscess at site of surgical wound Current Visit: Yes Status: Acute patient had repeat CT last night due to further mental status changes and CT scan abd/pelvis, personally reviewed by myself, showed the area we entered and packed was just superior to the abscess discussion was had with patient regarding further I/D of area continue abx prn pain control continue daily dressing changes/packing daily (2) Cellulitis of abdominal wall Current Visit: Yes Status: Acute (3) DVT prophylaxis Current Visit: Yes Status: Acute (4) S/P appendectomy Current Visit: Yes Status: Acute patients open appy site appears noninfected at this time Subjective Patient reports: no new complaints, still having pain, tolerating a regular diet , voiding w/o difficulty Objective Vital Signs - Last 8 Hours Temp Pulse Resp BP Pulse Ox 09/04/17 16:00 100.5 F H 68 20 120/77 95 09/04/17 12:20 100.9 F H 64 20 112/49 100 09/04/17 11:11 100.9 F H 20 112/49 100 Intake and Output 09/04/17 09/04/17 09/04/17 07:59 15:59 23:59 Intake Total 250 / 250 1200 / 1200 0 / 0 Output Total 0 / 0 350 / 350 0 / 0 Balance 250 / 250 850 / 850 0 / 0 Intake: IV Fluids 250 / 250 240 / 240 0.9 % Sodium Chloride 1,000 ML 140 / 140 @ 125 mls/hr IVC .Q8H [facility] Rx#: [id number] Zosyn 3.375 GM In Dextrose 5% ( 100 / 100 Minibag+) 100 ML 100 ML @ 25 mls/hr IVPB Q8H [facility] Rx#: [id number] Vancocin 1,500 MG In Dextrose 5 250 / 250 % 250 ML @ 166.67 mls/hr IVPB Q12H [facility] Rx#:[id number] Oral 0 / 0 960 / 960 0 / 0 Output: Urine 0 / 0 350 / 350 0 / 0 Other: Meal Lunch Percent of Meal Consumed 50% Blood Glucose* 113 131 - General physical appearance well developed, well nourished, no distress, moderate pain - Eyes PERRL, normal ocular movement - ENT normal mucosa, normocephalic - Neck Neck exam: trachea midline - Respiratory normal respiratory effort, clear to auscultation - Cardiovascular Cardiovascular exam: Present: RRR - Abdomen Abdomen: Present: soft, tender, wound - Incision Incision: Present: draining, red, inflamed - Integumentary no rash, no growths - Neurologic CN 2-12 grossly intact - Musculoskeletal normal posture - Psychiatric oriented to time, oriented to person, oriented to place, speech is normal, memory intact - Labs 09/04/17 03:45 09/04/17 03:45 Diabetes panel 09/04/17 Range/Units 03:45 Sodium 136 (136-145) mEq/L Potassium 4.5 (3.5-4.5) mEq/L Chloride 103 (98-109) mEq/L Carbon Dioxide 28 (19-29) mEq/L BUN 13 (7-20) mg/dL Creatinine 0.72 (0.57-1.11) mg/dL Glucose 152 H (70-99) mg/dL Calcium 8.2 L (8.6-10.8) mg/dL Calcium panel 09/04/17 Range/Units 03:45 Calcium 8.2 L (8.6-10.8) mg/dL Pituitary panel 09/04/17 Range/Units 03:45 Sodium 136 (136-145) mEq/L Potassium 4.5 (3.5-4.5) mEq/L Chloride 103 (98-109) mEq/L Carbon Dioxide 28 (19-29) mEq/L BUN 13 (7-20) mg/dL Creatinine 0.72 (0.57-1.11) mg/dL Glucose 152 H (70-99) mg/dL Calcium 8.2 L (8.6-10.8) mg/dL Adrenal panel 09/04/17 Range/Units 03:45 Sodium 136 (136-145) mEq/L Potassium 4.5 (3.5-4.5) mEq/L Chloride 103 (98-109) mEq/L Carbon Dioxide 28 (19-29) mEq/L BUN 13 (7-20) mg/dL Creatinine 0.72 (0.57-1.11) mg/dL Glucose 152 H (70-99) mg/dL Calcium 8.2 L (8.6-10.8) mg/dL - Attending Attestation I have personally performed a face to face evaluation on this patient. I have reviewed and agree with the care plan. History and Exam by me shows:
--- NOTE | 2017-09-04 11:23 | General Surgery Procedure Note ---
<Mary Blancas - Last Filed: 09/04/17 11:20> Date of procedure: 09/04/17 Pre-op diagnosis: abdominal wall abscess Post-op diagnosis: same Procedure: After informed consent was obtained and timeout was performed, the patient was placed in the supine position. Her abdominal wall was prepped with ChloraPrep. The affected area was localized with 10 mL's of 2% lidocaine. After achieving appropriate localization, a #11 blade scalpel was used to open the abscess cavity. Loculations were broken up with the use of hemostats. There was decompression of a large amount of purulent, foul-smelling drainage. The abscess cavity was completely decompressed and then flushed with 50 mL's of sterile saline. The abscess cavity was then packed with 1 inch iodoform gauze, covered with dry dressing, taped with Medipore to secure. Complications: None Anesthesia: local (10ml of 2% lidocaine) Surgeon: Rosa Healy Behavior Support Specialist: Mary Blancas Estimated blood loss (cc): 2 Pathology: other (Gram stain, aerobic culture, anaerobic culture) Condition: stable Disposition: no change <Rosa Healy - Last Filed: 09/04/17 16:54> Post-op diagnosis: same Procedure: Consent obtained. Patient was in supine position. Area of previous I/D through previous infraumbilical incision was prepped with betadine. 10cc of 1% lidocaine with epi was injected into the subcutaneous tissue. Using an 11 blade a transverse incision through the subcutaneous tissue was made into the abscess cavity. Copious amounts of foul smelling bloody purulent drainage with clots was expressed. Loculations were broken up with sterile Qtips, hemostats and digital manipulation. The abscess cavity was irrigated with sterile saline. The wound was then packed with 1" iodoform, covered with 4x4 gauze and medipore tape. Estimated blood loss (cc): 5 Pathology: other Condition: stable Disposition: no change
--- NOTE | 2017-09-04 15:19 | General Surgery Progress Note ---
Date of Encounter: 09/04/17 - Assessment and Plan (1) Abdominal wall abscess Current Visit: Yes Status: Acute Patient is s/p appendectomy 2/2 a ruptured appendix on 08/17/17. Patient has had fevers, chills, abdominal pain and redness. Vitals stable documented fever 100.1. WBC wnl. CT abdomen showed Focal fluid collection measuring 6.2 x 6 x 5.2 cm in the right anterior abdominal wall likely at the incision site from recent prior open appendectomy. Patient's abdominal wall abscess was incised and drained in the ER by Dr. Healy. Abscess cultures were obtained and sent to the lab. Gram stain came back negative for bacteria. Will repeat CT in the morning to see if entire abscess was accessed and no further I&D needed. Plan: -continue antibiotics, Zosyn - CT of the abdomen/pelvis in the morning - Wound cultures pending - Blood cultures pending (2) DVT prophylaxis Current Visit: Yes Status: Acute Lovenox 40mg SQ daily Objective Vital Signs - Last 8 Hours Temp Pulse Resp BP Pulse Ox 09/04/17 12:20 100.9 F H 64 20 112/49 100 09/04/17 11:11 100.9 F H 20 112/49 100 09/04/17 07:58 99.8 F H 09/04/17 07:25 97.8 F 20 129/83 91 Intake and Output 09/03/17 09/04/17 09/04/17 23:59 07:59 15:59 Intake Total 2250 / 2250 250 / 250 1200 / 1200 Output Total 0 / 0 350 / 350 Balance 2250 / 2250 250 / 250 850 / 850 Intake: IV Fluids 2250 / 2250 250 / 250 240 / 240 0.9 % Sodium Chloride 1,000 ML 2000 / 1999 140 / 140 @ 125 mls/hr IVC .Q8H [facility] Rx#: [id number] Zosyn 3.375 GM In Dextrose 5% ( 100 / 100 Minibag+) 100 ML 100 ML @ 25 mls/hr IVPB Q8H [facility] Rx#: [id number] Vancocin 1,000 MG In Dextrose 5 250 / 250 % 250 ML @ 167 mls/hr IVPB ONCE ONE Rx#:[id number] Vancocin 1,500 MG In Dextrose 5 250 / 250 % 250 ML @ 166.67 mls/hr IVPB Q12H [facility] Rx#:[id number] Oral 0 / 0 960 / 960 Output: Urine 0 / 0 350 / 350 Other: Meal Lunch Percent of Meal Consumed 50% Blood Glucose* 164 113 131 - Labs 09/04/17 03:45 09/04/17 03:45 Diabetes panel 09/04/17 Range/Units 03:45 Sodium 136 (136-145) mEq/L Potassium 4.5 (3.5-4.5) mEq/L Chloride 103 (98-109) mEq/L Carbon Dioxide 28 (19-29) mEq/L BUN 13 (7-20) mg/dL Creatinine 0.72 (0.57-1.11) mg/dL Glucose 152 H (70-99) mg/dL Calcium 8.2 L (8.6-10.8) mg/dL Calcium panel 09/04/17 Range/Units 03:45 Calcium 8.2 L (8.6-10.8) mg/dL Pituitary panel 09/04/17 Range/Units 03:45 Sodium 136 (136-145) mEq/L Potassium 4.5 (3.5-4.5) mEq/L Chloride 103 (98-109) mEq/L Carbon Dioxide 28 (19-29) mEq/L BUN 13 (7-20) mg/dL Creatinine 0.72 (0.57-1.11) mg/dL Glucose 152 H (70-99) mg/dL Calcium 8.2 L (8.6-10.8) mg/dL Adrenal panel 09/04/17 Range/Units 03:45 Sodium 136 (136-145) mEq/L Potassium 4.5 (3.5-4.5) mEq/L Chloride 103 (98-109) mEq/L Carbon Dioxide 28 (19-29) mEq/L BUN 13 (7-20) mg/dL Creatinine 0.72 (0.57-1.11) mg/dL Glucose 152 H (70-99) mg/dL Calcium 8.2 L (8.6-10.8) mg/dL Consult Discharge Plan - Plan Referrals: Nurys Antunez MD [Primary Care Provider] - 09/22/17 2:40 pm
[2017-09-04] MEDS: 0.9 % Sodium Chloride 1,000 ML IVC SCH ×3 (20:15→20:29)
[2017-09-05] MEDS: hydrOXYzine pamoate 25 MG CAPSULE PO SCH ×2 (00:22→22:28)
[2017-09-05] MEDS: 0.9 % Sodium Chloride 1,000 ML IVC SCH ×2 (00:24→11:44)
[2017-09-05] MEDS ORDERED: Vancomycin 1,500 MG in D5% in Water 250 ML IVPB SCH (03:00)
[2017-09-05] MEDS: Piperacillin/Tazobactam 3.375 GM in D5% in Water (Mini-Bag+) 100 ML IVPB SCH ×3 (04:09→22:28)
[2017-09-05 06:11] LABS: Basophils # 0.1 K/mcL (0.0-0.2); Basophils % 0.7 %; Eosinophils # 0.2 K/mcL (0.0-0.6); Eosinophils % 2.6 %; Hematocrit 28.7 % (35.3-44.9); Hemoglobin 9.2 g/dL (11.5-15.4); Immature Granulocytes % 0.4 % (0-4); Lymphocytes # 1.8 K/mcL (0.6-4.6); Lymphocytes % 24.7 %; Mean Corpuscular HGB Conc 32.1 g/dL (31.6-35.5); Mean Corpuscular Hemoglobin 28.1 pg (28.0-33.3); Mean Corpuscular Volume 87.8 fL (83.0-100.0); Mean Platelet Volume 10.1 fL (9.4-12.4); Monocytes % 13.2 %; Neutrophils # 4.2 K/mcL (1.6-8.9); Platelet Count 256 K/mcL (140-400); Red Blood Count 3.27 M/mcL (3.82-4.97); Red Cell Distribution Width 13.2 % (11.5-14.5); Segmented Neutrophils % 58.4 %
[2017-09-05 06:22] LABS: BUN/Creatinine Ratio 14 (6-26); Blood Urea Nitrogen 10 mg/dL (7-20); Calcium 8.2 mg/dL (8.6-10.8); Carbon Dioxide 28 mEq/L (19-29); Chloride 103 mEq/L (98-109); Glucose 128 mg/dL (70-99); Osmolality,Calculated 281 (280-300); Potassium 4.1 mEq/L (3.5-4.5); Sodium 135 mEq/L (136-145); eGFR For African Americans > 60 (> 60); eGFR For Non-African Americans > 60 (> 60)
[2017-09-05] MEDS: *HR* Enoxaparin 40 MG/0.4 ML SYRINGE SQ SCH (06:40)
[2017-09-05] MEDS: Thyroid (Amour) 30 MG TABLET PO SCH (06:42)
--- NOTE | 2017-09-05 07:41 | General Surgery Progress Note ---
<Alisa Vega - Last Filed: 09/05/17 07:36> Date of Encounter: 09/05/17 Time of Encounter: 06:30 - Assessment and Plan (1) Abdominal wall abscess Current Visit: Yes Status: Acute Patient is s/p appendectomy 2/2 a ruptured appendix on 08/17/17. Patient has had fevers, chills, abdominal pain and redness. CT abdomen showed Focal fluid collection measuring 6.2 x 6 x 5.2 cm in the right anterior abdominal wall likely at the incision site from recent prior open appendectomy. Patient's abdominal wall abscess was incised and drained in the ER by Dr. Healy and again 09/04/17 at bedside as repeat CT showed previous incision just anterior to the abcsess. Abscess cultures were obtained and sent to the lab. Gram stain came back negative for bacteria. Cultures still pending. Patient was still febrile yesterday evening. WBC decreasing and still within normal limits. Continue antibiotics. Packing was replaced this morning. Plan: - New cultures obtained 09/04/17, pending aerobic and anaerobic cultures - IV antibiotics- vancomycin and zosyn - Supportive care and pain control - Daily wound care per surgery team- 1 inch iodoform packing - Diet: cardiac diet - Will continue to follow and assess progress (2) S/P appendectomy Current Visit: Yes Status: Acute see above (3) Hypothyroidism Current Visit: Yes Status: Chronic Qualifiers: Hypothyroidism type: unspecified Qualified Code(s): E03.9 - Hypothyroidism , unspecified (4) Cellulitis of abdominal wall Current Visit: Yes Status: Acute Improving redness from yesterday. Plan: -IV antibiotics- Zosyn and Vancomycin - Surgery will continue to follow and assess progress (5) DVT prophylaxis Current Visit: Yes Status: Acute Lovenox SQ daily for DVT prophylaxis Ambulate hallways with assistance TID Subjective Narrative: Patient is an 81-year-old female with a past medical history of recent diagnosis of ruptured appendicitis and appendectomy on 08/17/17 presented to the ED with a chief complaint of increased redness and pain at the surgical sites and new onset of being disoriented per her daughter found to have an abdominal wall abscess. Overnight had no acute events. Today patient states that she is feeling a little bit better. She denies N/V. Objective Vital Signs - Last 8 Hours Temp Pulse Resp BP Pulse Ox 09/05/17 07:23 98.5 F 67 16 138/67 95 09/05/17 06:00 67 09/05/17 04:00 97 09/05/17 03:59 98.6 F 65 16 143/66 96 09/05/17 02:00 66 20 97 09/05/17 00:00 99.8 F H 64 16 136/64 98 Intake and Output 09/04/17 09/04/17 09/05/17 15:59 23:59 07:59 Intake Total 1200 / 1200 100 / 100 1350 / 1350 Output Total 350 / 350 250 / 250 0 / 0 Balance 850 / 850 -150 / -150 1350 / 1350 Intake: IV Fluids 240 / 240 100 / 100 1350 / 1350 0.9 % Sodium Chloride 1,000 ML 140 / 140 1000 / 1000 @ 125 mls/hr IVC .Q8H [facility] Rx#: [id number] Zosyn 3.375 GM In Dextrose 5% ( 100 / 100 100 / 100 100 / 100 Minibag+) 100 ML 100 ML @ 25 mls/hr IVPB Q8H [facility] Rx#: [id number] Vancocin 1,500 MG In Dextrose 5 250 / 250 % 250 ML @ 166.67 mls/hr IVPB Q24H [facility] Rx#:[id number] Oral 960 / 960 0 / 0 Output: Urine 350 / 350 250 / 250 0 / 0 Other: Meal Lunch Percent of Meal Consumed 50% Weight 46.402 kg Blood Glucose* 131 145 Patient Weight 09/05/17 23:59 Weight 46.402 kg - Additional Exam Constitutional: Alert, in no acute distress, well nourished, well developed. Head: Normocephalic, atraumatic, normal contour and symmetric, no masses, lesions or scars Heart: Normal, regular rate and rhythm, no murmurs Lungs: Clear to auscultation, no wheezes, rales, or rhonchi Abdomen: ~3.5cm horizontal incision inferior to her umbilicus packed with 1inch iodoform , draining sanguineous fluid, redness has decreased in the surrounding area of her abdomen since yesterday, other laproscopic incisions well approximated, healing well without signs of infection, Soft, nondistended , and no masses palpable, bowel sounds present and normal, no guarding or rigidity. Extremities: No clubbing, cyanosis, +1 non-pitting edema, radial pulse +2/4, capillary refill <2sec. Skin: Skin warm and dry, no jaundice Neurologic: Cranial nerves II through XII grossly intact, no focal deficits, strength within normal limits in all extremities Psych: Cooperative with exam, speech clear - Labs 09/05/17 05:53 09/05/17 05:53 Diabetes panel 09/05/17 Range/Units 05:53 Sodium 135 L (136-145) mEq/L Potassium 4.1 (3.5-4.5) mEq/L Chloride 103 (98-109) mEq/L Carbon Dioxide 28 (19-29) mEq/L BUN 10 (7-20) mg/dL Creatinine 0.72 (0.57-1.11) mg/dL Glucose 128 H (70-99) mg/dL Calcium 8.2 L (8.6-10.8) mg/dL Calcium panel 09/05/17 Range/Units 05:53 Calcium 8.2 L (8.6-10.8) mg/dL Pituitary panel 09/05/17 Range/Units 05:53 Sodium 135 L (136-145) mEq/L Potassium 4.1 (3.5-4.5) mEq/L Chloride 103 (98-109) mEq/L Carbon Dioxide 28 (19-29) mEq/L BUN 10 (7-20) mg/dL Creatinine 0.72 (0.57-1.11) mg/dL Glucose 128 H (70-99) mg/dL Calcium 8.2 L (8.6-10.8) mg/dL Adrenal panel 09/05/17 Range/Units 05:53 Sodium 135 L (136-145) mEq/L Potassium 4.1 (3.5-4.5) mEq/L Chloride 103 (98-109) mEq/L Carbon Dioxide 28 (19-29) mEq/L BUN 10 (7-20) mg/dL Creatinine 0.72 (0.57-1.11) mg/dL Glucose 128 H (70-99) mg/dL Calcium 8.2 L (8.6-10.8) mg/dL Consult Discharge Plan - Plan Referrals: Nurys Antunez MD [Primary Care Provider] - 09/22/17 2:40 pm <Emerson Enciso - Last Filed: 09/05/17 10:21> Date of Encounter: 09/05/17 Objective Vital Signs - Last 8 Hours Temp Pulse Resp BP Pulse Ox 09/05/17 07:23 98.5 F 67 16 138/67 95 09/05/17 06:00 67 09/05/17 04:00 97 09/05/17 03:59 98.6 F 65 16 143/66 96 Intake and Output 09/04/17 09/05/17 09/05/17 23:59 07:59 15:59 Intake Total 100 / 100 1350 / 1350 240 / 240 Output Total 250 / 250 0 / 0 0 / 0 Balance -150 / -150 1350 / 1350 240 / 240 Intake: IV Fluids 100 / 100 1350 / 1350 0.9 % Sodium Chloride 1,000 ML 1000 / 1000 @ 125 mls/hr IVC .Q8H [facility] Rx#: [id number] Zosyn 3.375 GM In Dextrose 5% ( 100 / 100 100 / 100 Minibag+) 100 ML 100 ML @ 25 mls/hr IVPB Q8H [facility] Rx#: [id number] Vancocin 1,500 MG In Dextrose 5 250 / 250 % 250 ML @ 166.67 mls/hr IVPB Q24H [facility] Rx#:[id number] Oral 0 / 0 240 / 240 Output: Urine 250 / 250 0 / 0 0 / 0 Other: Meal Breakfast Percent of Meal Consumed 40% Weight 46.402 kg Blood Glucose* 145 Patient Weight 09/05/17 23:59 Weight 46.402 kg - Labs 09/05/17 05:53 09/05/17 05:53 Diabetes panel 09/05/17 Range/Units 05:53 Sodium 135 L (136-145) mEq/L Potassium 4.1 (3.5-4.5) mEq/L Chloride 103 (98-109) mEq/L Carbon Dioxide 28 (19-29) mEq/L BUN 10 (7-20) mg/dL Creatinine 0.72 (0.57-1.11) mg/dL Glucose 128 H (70-99) mg/dL Calcium 8.2 L (8.6-10.8) mg/dL Calcium panel 09/05/17 Range/Units 05:53 Calcium 8.2 L (8.6-10.8) mg/dL Pituitary panel 09/05/17 Range/Units 05:53 Sodium 135 L (136-145) mEq/L Potassium 4.1 (3.5-4.5) mEq/L Chloride 103 (98-109) mEq/L Carbon Dioxide 28 (19-29) mEq/L BUN 10 (7-20) mg/dL Creatinine 0.72 (0.57-1.11) mg/dL Glucose 128 H (70-99) mg/dL Calcium 8.2 L (8.6-10.8) mg/dL Adrenal panel 09/05/17 Range/Units 05:53 Sodium 135 L (136-145) mEq/L Potassium 4.1 (3.5-4.5) mEq/L Chloride 103 (98-109) mEq/L Carbon Dioxide 28 (19-29) mEq/L BUN 10 (7-20) mg/dL Creatinine 0.72 (0.57-1.11) mg/dL Glucose 128 H (70-99) mg/dL Calcium 8.2 L (8.6-10.8) mg/dL - Attending Attestation I have personally seen and examined the patient. I have reviewed pertinent labs , imaging, progress notes, including this one. I agree with the above assessment and plan and wish to include the following... 81F s/p perforated appendix complicated by soft tissue abscess now s/p bedside I &D; afebrile, decreasing WBC, decreased erythema around wound; (+)sanguinous, purulent drainage; mildly tender to palpation; dressing changed at bedside; patient okay to clean wound with soap and water; can pack again after it is done ;
[2017-09-05] MEDS: *HR* OxyCODONE/APAP 10/325 TABLET PO PRN ×2 (09:36→22:28)
--- NOTE | 2017-09-05 12:46 | Internal Med Progress Note ---
Date of Encounter: 09/05/17 Time of Encounter: 12:45 - Assessment and plan (1) Abdominal wall abscess at site of surgical wound Current Visit: Yes Status: Acute Assessment and plan: CT abdomen/pelvis shows a 6 x 6 x 5 cm fluid collection in the anterior abdominal wall, concerning for abscess. Surgery consult and follow-up appreciated. Patient underwent incision and drainage twice. Continue local wound care per surgery recommendations with Iodoform packing. Pain control with when necessary IV morphine and oral hydrocodone. Continue broad-spectrum antibiotics-IV vancomycin and Zosyn and follow up final wound and blood cultures. (2) Hypothyroidism Current Visit: Yes Status: Chronic Assessment and plan: continue Levothyroxine. Qualifiers: Hypothyroidism type: unspecified Qualified Code(s): E03.9 - Hypothyroidism , unspecified (3) Sepsis Current Visit: Yes Status: Acute Assessment and plan: Patient presents with fever, tachycardia, altered mental status, secondary to abdominal wall cellulitis and abscess. Currently improving. Continue current antibiotics, afebrile now Qualifiers: Sepsis type: sepsis due to unspecified organism Qualified Code(s): A41.9 - Sepsis, unspecified organism (4) Cellulitis of abdominal wall Current Visit: Yes Status: Acute Assessment and plan: Cellulitis and abscess of abdominal wall at the site of laparoscopic wound. Patient recently underwent open appendectomy fr ruptured appendix. Underwent bedside incision and drainage by surgery yesterday, preliminary Gram stain shows no bacteria. CT abdomen/pelvis showed no change in the amount of fluid collection after the procedure. Incision and drainages repeated today at bedside by surgery. Follow up final wound and blood cultures and continue broad -spectrum IV antibiotics. - Subjective Interval history: Seen and evaluated at bedside Complains of constipation, and burning on urination, otherwise denies new complains POD 1 s/p I/D Awaiting culture reports - Constitutional Vitals: Temp Pulse Resp BP Pulse Ox 97.9 F 54 16 110/54 97 09/05/17 11:29 09/05/17 11:29 09/05/17 11:29 09/05/17 11:29 09/05/17 11:29 General appearance: Present: A&O X 3, morbidly obese, pleasant, no acute distress, answers questions appropriately - Head Head exam: Present: atraumatic, normocephalic - Eye Eye exam: Present: PERRL, conjuntiva pink, sclera anicteric Pupils: Present: PERRL - Neck Neck exam general surgery: Present: supple, trachea midline. Absent: lymphadenopathy - Respiratory Respiratory exam: Present: CTAB. Absent: accessory muscle use, rales, rhonchi, wheezes - Cardiovascular Cardiovascular exam: Present: RRR, +S1, +S2. Absent: diastolic murmur, gallop, rubs, systolic murmur - GI/Abdominal Additional comments: Soaked anterior wall wound dressing, not tender - Extremities Exam Extremities exam: Present: warm, radial pulses palpable and symmetrical. Absent : calf tenderness, cyanotic, pedal edema - Neurological Exam Neurological exam: Present: alert, CN II-XII intact, oriented X3, no focal deficits. Absent: pronater drift, facial droop, speech deficit - Skin Skin exam: Present: dry Internal Medicine: Result - Labs CBC & Chem 7: 09/05/17 05:53 09/05/17 05:53 Labs: Short CBC 09/05/17 Range/Units 05:53 WBC 7.2 (4.3-11.1) K/mcL Hgb 9.2 L (11.5-15.4) g/dL Hct 28.7 L (35.3-44.9) % Plt Count 256 (140-400) K/mcL Neutrophils # 4.2 (1.6-8.9) K/mcL BMP 09/05/17 05:53 Sodium 135 L Potassium 4.1 Chloride 103 Carbon Dioxide 28 BUN 10 Creatinine 0.72 Glucose 128 H Calcium 8.2 L - Impressions Impressions Abdomen/Pelvis CT 09/03/17 18:19 IMPRESSION: No significant change in size of the fluid collection in the anterior subcutaneous tissues. Packing material appears to project superficial to the collection. Large hiatal hernia. The configuration of the stomach in the hernia sac has changed, and a gas-filled portion of the stomach now protrudes into the abdomen adjacent to the previously seen intraperitoneal portion of the stomach. No wall thickening or perigastric inflammatory changes noted to suggest acute process. Upper GI exam may be useful in further clarifying the anatomy. D/ / 09/03/2017 19:48:15 Be Isabel MD / ziggy Interpreting Provider: Be Isabel MD Consult Discharge Plan - Plan Referrals: Nurys Antunez MD [Primary Care Provider] - 09/22/17 2:40 pm
[2017-09-05] MEDS: Ondansetron 4 MG/2 ML VIAL IVP PRN (15:10)
[2017-09-05 18:22] LABS: Bilirubin,Urine Negative (Negative); Blood,Urine Trace (Negative); Clarity,Urine Clear (Clear); Color,Urine Yellow (Yellow); Glucose,Urine (UA) Normal (Normal); Ketones,Urine Negative (Negative); Leukocyte Esterase,Urine Negative (Negative); Nitrite,Urine Negative (Negative); Protein,Urine Negative (Neg-Trace); Specific Gravity,Urine 1.013 (1.010-1.025); Urobilinogen,Urine Normal (Normal)
[2017-09-05 18:24] LABS: Bacteria,Urine None Seen per hpf (None-Few); Hyaline Casts,Urine None Seen per lpf (None-Few); RBC,Urine 0-3 per hpf (0-3); Squamous Epithelial Cell,Urine Many per lpf (None-Few); WBC,Urine 0-3 per hpf (0-3)
[2017-09-06] MEDS: 0.9 % Sodium Chloride 1,000 ML IVC SCH (00:12)
[2017-09-06] MEDS: Piperacillin/Tazobactam 3.375 GM in D5% in Water (Mini-Bag+) 100 ML IVPB SCH ×3 (06:15→21:07)
[2017-09-06] MEDS: *HR* Enoxaparin 40 MG/0.4 ML SYRINGE SQ SCH (06:15)
[2017-09-06] MEDS: Thyroid (Amour) 30 MG TABLET PO SCH (06:16)
[2017-09-06 07:06] LABS: BUN/Creatinine Ratio 12 (6-26); Blood Urea Nitrogen 9 mg/dL (7-20); Calcium 8.4 mg/dL (8.6-10.8); Carbon Dioxide 30 mEq/L (19-29); Chloride 104 mEq/L (98-109); Glucose 120 mg/dL (70-99); Osmolality,Calculated 286 (280-300); Sodium 138 mEq/L (136-145); eGFR For African Americans > 60 (> 60); eGFR For Non-African Americans > 60 (> 60)
[2017-09-06 07:08] LABS: Potassium 4.8 mEq/L (3.5-4.5)
[2017-09-06 07:18] LABS: Basophils # 0.1 K/mcL (0.0-0.2); Eosinophils # 0.3 K/mcL (0.0-0.6); Eosinophils % 6.4 %; Hematocrit 30.5 % (35.3-44.9); Hemoglobin 9.5 g/dL (11.5-15.4); Immature Granulocytes % 0.4 % (0-4); Lymphocytes # 1.5 K/mcL (0.6-4.6); Lymphocytes % 28.4 %; Mean Corpuscular HGB Conc 31.1 g/dL (31.6-35.5); Mean Corpuscular Hemoglobin 27.8 pg (28.0-33.3); Mean Corpuscular Volume 89.2 fL (83.0-100.0); Mean Platelet Volume 10.6 fL (9.4-12.4); Monocytes # 0.7 K/mcL (0.0-1.3); Monocytes % 13.7 %; Neutrophils # 2.6 K/mcL (1.6-8.9); Platelet Count 265 K/mcL (140-400); Red Blood Count 3.42 M/mcL (3.82-4.97); Red Cell Distribution Width 13.1 % (11.5-14.5); Segmented Neutrophils % 50.1 %
[2017-09-06] MEDS ORDERED: Vancomycin 1,750 MG in D5% in Water 500 ML IVPB SCH (08:00)
--- NOTE | 2017-09-06 10:39 | General Surgery Progress Note ---
Date of Encounter: 09/06/17 Time of Encounter: 10:36 - Assessment and Plan (1) Abdominal wall abscess at site of surgical wound Current Visit: Yes Status: Acute cont abx regimen dressing change today at bedside after shower (2) Cellulitis of abdominal wall Current Visit: Yes Status: Acute cont with abx regimen; currently improving cont with dressing changes (3) DVT prophylaxis Current Visit: Yes Status: Acute per primary team; recommend lovenox or heparin with SCDs Subjective Patient reports: no new complaints, feels better, pain is less (no acute events overnight; pain controlled; ambulating; tolerating diet) Objective Vital Signs - Last 8 Hours Temp Pulse Resp BP Pulse Ox 09/06/17 09:38 99.4 F 76 16 141/86 98 09/06/17 05:00 98.1 F 73 20 122/62 97 Intake and Output 09/05/17 09/06/17 09/06/17 23:59 07:59 15:59 Intake Total 1200 / 1200 Output Total 300 / 300 Balance -300 / -300 1200 / 1200 Intake: IV Fluids 1100 / 1100 0.9 % Sodium Chloride 1,000 ML 1000 / 1000 @ 125 mls/hr IVC .Q8H [facility] Rx#: [id number] Zosyn 3.375 GM In Dextrose 5% ( 100 / 100 Minibag+) 100 ML 100 ML @ 25 mls/hr IVPB Q8H [facility] Rx#: [id number] Oral 100 / 100 Output: Urine 300 / 300 - General physical appearance well developed, well nourished, no distress - Respiratory normal expansion, clear to auscultation - Cardiovascular Cardiovascular exam: Present: RRR - Abdomen Abdomen: Present: soft - Incision Incision: Present: draining (improved erythema; still with drainage, sanguinous- purulent), erythema - Neurologic CN 2-12 grossly intact - Labs 09/06/17 05:52 09/06/17 05:52 Diabetes panel 09/06/17 Range/Units 05:52 Sodium 138 (136-145) mEq/L Potassium 4.8 H (3.5-4.5) mEq/L Chloride 104 (98-109) mEq/L Carbon Dioxide 30 H (19-29) mEq/L BUN 9 (7-20) mg/dL Creatinine 0.74 (0.57-1.11) mg/dL Glucose 120 H (70-99) mg/dL Calcium 8.4 L (8.6-10.8) mg/dL Calcium panel 09/06/17 Range/Units 05:52 Calcium 8.4 L (8.6-10.8) mg/dL Pituitary panel 09/06/17 Range/Units 05:52 Sodium 138 (136-145) mEq/L Potassium 4.8 H (3.5-4.5) mEq/L Chloride 104 (98-109) mEq/L Carbon Dioxide 30 H (19-29) mEq/L BUN 9 (7-20) mg/dL Creatinine 0.74 (0.57-1.11) mg/dL Glucose 120 H (70-99) mg/dL Calcium 8.4 L (8.6-10.8) mg/dL Adrenal panel 09/06/17 Range/Units 05:52 Sodium 138 (136-145) mEq/L Potassium 4.8 H (3.5-4.5) mEq/L Chloride 104 (98-109) mEq/L Carbon Dioxide 30 H (19-29) mEq/L BUN 9 (7-20) mg/dL Creatinine 0.74 (0.57-1.11) mg/dL Glucose 120 H (70-99) mg/dL Calcium 8.4 L (8.6-10.8) mg/dL Consult Discharge Plan - Plan Referrals: Nurys Antunez MD [Primary Care Provider] - 09/22/17 2:40 pm
--- NOTE | 2017-09-06 11:06 | Internal Med Progress Note ---
Date of Encounter: 09/06/17 Time of Encounter: 10:50 - Assessment and plan (1) Cellulitis of abdominal wall Current Visit: Yes Status: Acute Assessment and plan: improving. Continue IV antibiotics. (2) Abdominal wall abscess at site of surgical wound Current Visit: Yes Status: Acute Assessment and plan: CT abdomen/pelvis shows a 6 x 6 x 5 cm fluid collection in the anterior abdominal wall, concerning for abscess. Surgery consulted and patient underwent bedside I&Ds twice; wound cultures both times show no bacteria so far; preliminary blood cultures remain negative; continue local wound care with Iodoform packing per Surgery recommendations. Pain control with when necessary IV morphine and oral hydrocodone. Continue broad-spectrum antibiotics-IV vancomycin and Zosyn and follow up final wound and blood cultures. Anticipate discharge in am, if cleared by Surgery, with [facility] for wound care. (3) Hypothyroidism Current Visit: Yes Status: Chronic Assessment and plan: continue Levothyroxine. Qualifiers: Hypothyroidism type: unspecified Qualified Code(s): E03.9 - Hypothyroidism , unspecified (4) Sepsis Current Visit: Yes Status: Resolved Qualifiers: Sepsis type: sepsis due to unspecified organism Qualified Code(s): A41.9 - Sepsis, unspecified organism - Subjective Interval history: Reports improved abdominal pain; no fever/chills, dyspnea but has constipation , refuses Miralax as it gave her significant nausea and GI distress last evening ; - Constitutional Vitals: Temp Pulse Resp BP Pulse Ox 99.4 F 76 16 141/86 98 09/06/17 09:38 09/06/17 09:38 09/06/17 09:38 09/06/17 09:38 09/06/17 09:38 General appearance: Present: A&O X 3, answers questions appropriately - Respiratory Respiratory exam: Present: CTAB (anterolaterally). Absent: accessory muscle use , rales, rhonchi, wheezes - Cardiovascular Cardiovascular exam: Present: RRR, +S1, +S2. Absent: diastolic murmur, gallop, rubs, systolic murmur - GI/Abdominal GI/Abdominal exam: Present: normal bowel sounds, soft (improved erythema over anterior abdominal wall; umbilical wound with packing noted;), no peritoneal signs. Absent: distended, tenderness - Extremities Exam Extremities exam: Present: full ROM, warm, radial pulses palpable and symmetrical. Absent: calf tenderness, cyanotic, pedal edema Internal Medicine: Result - Labs CBC & Chem 7: 09/06/17 05:52 09/06/17 05:52 Labs: Short CBC 09/06/17 Range/Units 05:52 WBC 5.2 (4.3-11.1) K/mcL Hgb 9.5 L (11.5-15.4) g/dL Hct 30.5 L (35.3-44.9) % Plt Count 265 (140-400) K/mcL Neutrophils # 2.6 (1.6-8.9) K/mcL BMP 09/06/17 05:52 Sodium 138 Potassium 4.8 H Chloride 104 Carbon Dioxide 30 H BUN 9 Creatinine 0.74 Glucose 120 H Calcium 8.4 L Urine 09/05/17 Range/Units 18:15 Urine Color Yellow (Yellow) Urine Clarity Clear (Clear) Urine pH 6.0 (5.0-8.0) pH Units Ur Specific Lynn 1.013 (1.010-1.025) Urine Protein Negative (Neg-Trace) mg/dL Urine Glucose (UA) Normal (Normal) mg/dL Consult Discharge Plan - Plan Referrals: Nurys Antunez MD [Primary Care Provider] - 09/22/17 2:40 pm
[2017-09-06] MEDS ORDERED: Aminoglycoside Consult 1 EACH MC ONE (13:32)
[2017-09-06] MEDS: Sennosides/Docusate Sodium TABLET PO SCH ×2 (17:12→21:08)
[2017-09-06] MEDS: hydrOXYzine pamoate 25 MG CAPSULE PO SCH ×2 (21:08→21:10)
[2017-09-06] MEDS: *HR* OxyCODONE/APAP 10/325 TABLET PO PRN (23:36)
[2017-09-07] MEDS: Piperacillin/Tazobactam 3.375 GM in D5% in Water (Mini-Bag+) 100 ML IVPB SCH (04:28)
[2017-09-07] MEDS: *HR* Enoxaparin 40 MG/0.4 ML SYRINGE SQ SCH (06:19)
[2017-09-07] MEDS: Thyroid (Amour) 30 MG TABLET PO SCH (06:19)
[2017-09-07 08:44] VITALS: BP 147/66
--- NOTE | 2017-09-07 09:31 | General Surgery Progress Note ---
Date of Encounter: 09/07/17 Time of Encounter: 09:31 - Assessment and Plan (1) Abdominal wall abscess at site of surgical wound Current Visit: Yes Status: Acute Packing removed and replaced. Wound beds are pink and there is minimal amount of drainage noted. Replaced with 1/2 iodoform gauze and covered with dry dressing. Pt's daughter (who is a nurse) will be staying with patient to do wound care. Continue daily wound care care: remove dressing, everything is packing, shower/ wash the area with open water. After shower, pat dry and repack with 1/2 inch plain gauze. Cover with a dry dressing and tape to secure. OK to d/c from a surgical perspective. Surgery will sign off at this time. Thank you for allowing us to participate in Krystyna's care. Please see d/c plan for further information. Subjective Patient reports: no new complaints, feels better, pain is less, tolerating liquids well, tolerating a regular diet, voiding w/o difficulty, flatus, no bowel movement, afebrile Objective Vital Signs - Last 8 Hours Temp Pulse Resp BP Pulse Ox 09/07/17 08:39 69 18 147/66 97 09/07/17 04:16 98.2 F 77 18 147/74 97 Intake and Output 09/06/17 09/07/17 09/07/17 23:59 07:59 15:59 Intake Total 1840 / 1840 100 / 100 Output Total 1000 / 1000 Balance 840 / 840 100 / 100 Intake: IV Fluids 1600 / 1600 100 / 100 0.9 % Sodium Chloride 1,000 ML 1000 / 1000 @ 125 mls/hr IVC .Q8H GABRIELA Rx#: [id number] Zosyn 3.375 GM In Dextrose 5% ( 100 / 100 100 / 100 Minibag+) 100 ML 100 ML @ 25 mls/hr IVPB Q8H GABRIELA Rx#: [id number] Vancocin 1,750 MG In Dextrose 5 500 / 500 % 500 ML @ 333.333 mls/hr IVPB Q24H GABRIELA Rx#:[id number] Oral 240 / 240 Output: Urine 1000 / 1000 Other: Meal Dinner Percent of Meal Consumed 100% Weight 103.1 kg Blood Glucose* 173 Patient Weight 09/07/17 23:59 Weight 103.1 kg - General physical appearance well developed, well nourished, no distress, no pain - Eyes normal ocular movement - ENT atraumatic, normocephalic - Neck Neck exam: trachea midline - Respiratory normal expansion, normal respiratory effort, clear to auscultation - Cardiovascular Cardiovascular exam: Present: RRR, distant heart sounds - Abdomen Abdomen: Present: bowel sounds present, soft, tender (Around the I&D site) Hernia: none - Incision Incision: Present: open (Packing removed. Wound beds are pink. Minimal amount of drainage noted.) - Integumentary other (Moist and slightly irritated panus. ) - Neurologic CN 2-12 grossly intact - Musculoskeletal normal gait, normal posture - Psychiatric oriented to time, oriented to person, oriented to place, memory intact - Labs 09/06/17 05:52 09/06/17 05:52 Consult Discharge Plan - Plan Additional Instructions: 1. Continue daily wound care care: remove dressing, everything is packing, shower/wash the area with open water. After shower, pat dry and repack with 1/2 inch plain gauze. Cover with a dry dressing and tape to secure. 2. Take pain medication as directed if needed for discomfort. Take stool softener swell on narcotics, may hold for loose stools. 3. Report any fevers greater than 100.5, increase or changes in abdominal site discharge, increase in abdominal pain, or previous hospitalization symptoms. 4. Take antibiotics as directed. Do not stop antibiotics unless directed by provider. Referrals: Nurys Antunez MD [Primary Care Provider] - 09/22/17 2:40 pm Lindsay Mariee CNP [Advanced Practice Nurse] - 09/15/17 1:30 pm Prescriptions: Ondansetron ODT [Zofran ODT] 4 mg SL Q6HR #30 tab.rapdis Clindamycin HCl [Cleocin HCl] 300 mg PO Q6H #21 capsule Docusate [Colace] 100 mg PO BID #60 capsule Oxycodone HCl/Acetaminophen [Percocet 10-325 mg Tablet] 1 each PO Q4H PRN 7 Days #42 tablet PRN Reason: Pain
--- NOTE | 2017-09-07 11:07 | Discharge Summary ---
Date of Encounter: 09/07/17 Time of Encounter: 11:03 - Discharge Diagnosis (1) Cellulitis of abdominal wall Priority: Primary Status: Acute (2) Abdominal wall abscess at site of surgical wound Priority: Primary Status: Acute (3) Hypothyroidism Priority: Secondary Status: Chronic Qualifiers: Hypothyroidism type: unspecified Qualified Code(s): E03.9 - Hypothyroidism , unspecified (4) Sepsis Priority: Primary Status: Resolved Qualifiers: Sepsis type: sepsis due to unspecified organism Qualified Code(s): A41.9 - Sepsis, unspecified organism - Discharge Medications Prescriptions: Ondansetron ODT [Zofran ODT] 4 mg SL Q6HR #30 tab.rapdis Clindamycin HCl [Cleocin HCl] 300 mg PO Q6H #21 capsule Docusate [Colace] 100 mg PO BID #60 capsule Gauze Bandage [Gauze Pads] 1 each TP DAILY #50 bandage Iodoform [Curity Iodoform] 1 each TP DAILY #2 bandage Oxycodone HCl/Acetaminophen [Percocet 10-325 mg Tablet] 1 each PO Q4H PRN 7 Days #42 tablet PRN Reason: Pain Home Medications: Iodine [Kelp] 150 mcg PO DAILY 09/03/17 [History] Methyl Folate 400 mcg PO DAILY 09/03/17 [History] Thyroid,Pork [[place] Thyroid] 60 mg PO DAILY 09/03/17 [History] hydrOXYzine pamoate [HydrOXYzine Pamoate] 25 mg PO HS 09/03/17 [History] Clindamycin HCl [Cleocin HCl] 300 mg PO Q6H #21 capsule 09/07/17 [Rx] Docusate [Colace] 100 mg PO BID #60 capsule 09/07/17 [Rx] Gauze Bandage [Gauze Pads] 1 each TP DAILY #50 bandage 09/07/17 [Rx] Iodoform [Curity Iodoform] 1 each TP DAILY #2 bandage 09/07/17 [Rx] Ondansetron ODT [Zofran ODT] 4 mg SL Q6HR #30 tab.rapdis 09/07/17 [Rx] Oxycodone HCl/Acetaminophen [Percocet 10-325 mg Tablet] 1 each PO Q4H PRN 7 Days #42 tablet 09/07/17 [Rx] Allergies/Adverse Reactions: 3 Allergy/AdvReac Type Severity Reaction Status Date / Time No Known Allergies Allergy Verified 09/03/17 11:02 Date of admission: 09/03/17 15:08 Primary care physician: Nurys Antunez MD Discharging clinician: Janice De La Cruz Anticipated date of discharge: 09/07/17 - Patient Status Disposition: Home, Self-Care Condition: Fair Functional capacity at discharge: independent ambulation Overall status at discharge: patient is progressing back to baseline - Discharge Instructions Follow Up With: Nurys Antunez MD [Primary Care Provider] - 09/22/17 2:40 pm Lindsay Mariee CNP [Advanced Practice Nurse] - 09/15/17 1:30 pm Additional Instructions: 1. Continue daily wound care care: remove dressing, everything is packing, shower/wash the area with open water. After shower, pat dry and repack with 1/2 inch plain gauze. Cover with a dry dressing and tape to secure. 2. Take pain medication as directed if needed for discomfort. Take stool softener swell on narcotics, may hold for loose stools. 3. Report any fevers greater than 100.5, increase or changes in abdominal site discharge, increase in abdominal pain, or previous hospitalization symptoms. 4. Take antibiotics as directed. Do not stop antibiotics unless directed by provider. - Diet and Activity Activity: resume usual activities as tolerated Diet: low fat, low cholesterol, low salt diet Hospital course: Ms. Reddy is a 81 year old female with the above medical problems, who recently underwent open appendectomy for ruptured appendix, was admitted with fever and surgical wound infection. CT abdomen showed fluid collection close to surgical incision 6 x 6 x 5 cm, concerning for abscess. Patient was noted to be in sepsis with fever, tachycardia and altered mental status and noted to have a laparoscopic wound infection. Surgery was consulted and patient underwent bedside incision and drainage and wound culture was negative. She was started on broad-spectrum IV antibiotics-vancomycin and Zosyn. Patient had to be transferred to stepdown unit due to worsening confusion and somnolence after admission. CT head showed no acute abnormality. Mental status gradually improved back to baseline by the next day. Repeat CT abdomen showed persistent abscess with no change in size and patient underwent repeat incision and drainage at bedside and breakdown loculations. Repeat wound culture and Gram stain remained negative for bacteria. Patient is currently doing well and is medically stable for discharge. She is being sent on oral Percocet and clindamycin per surgery. She will follow up in surgery clinic and continue wound care with iodoform dressings at home. Patient 's daughter is a registered nurse and will be able to take care of her dressing changes. - Time Spent with Patient Total time spent providing and/or coordinating discharge services: Greater than 30 minutes (40 min) - Constitutional Vitals: Temp Pulse Resp BP Pulse Ox 98.2 F 69 18 147/66 97 09/07/17 04:16 09/07/17 08:39 09/07/17 08:39 09/07/17 08:39 09/07/17 08:39 General appearance: Present: A&O X 3, answers questions appropriately - Cardiovascular Cardiovascular exam: Present: RRR, +S1, +S2. Absent: diastolic murmur, gallop, rubs, systolic murmur
[2017-09-07] MEDS: Sennosides/Docusate Sodium TABLET PO SCH (11:27)
== END 2017-09-07 13:33 | disposition home or self-care (01) ==
LOC: 3ANU 10:56 → EMEROO 10:56 → SUATTDRO 15:08 → 3ANU 16:55 → 2NNU 20:20
PROVIDERS: ADMIT Nurse Practitioner; ATTEND Internal Medicine

== ENCOUNTER 2019-04-08 19:06 | Observation (INO) ==
[2019-04-08 20:07] LABS: Bacteria,Urine None Seen per hpf (None-Few); Bilirubin,Urine Negative (Negative); Blood,Urine Trace (Negative); Clarity,Urine Clear (Clear); Color,Urine Yellow (Yellow); Glucose,Urine (UA) Normal (Normal); Hyaline Casts,Urine None Seen per lpf (None-Few); Ketones,Urine Negative (Negative); Leukocyte Esterase,Urine Negative (Negative); Nitrite,Urine Negative (Negative); PH,Urine 6.5 pH Units (5.0-8.0); Protein,Urine Negative (Neg-Trace); RBC,Urine 0-3 per hpf (0-3); Specific Gravity,Urine 1.013 (1.010-1.025); Squamous Epithelial Cell,Urine Few per lpf (None-Few); Urobilinogen,Urine Normal (Normal); WBC,Urine 0-3 per hpf (0-3)
[2019-04-08 20:52] LABS: Basophils % 0.5 %; Eosinophils # 0.3 K/mcL (0.0-0.6); Eosinophils % 3.1 %; Hematocrit 29.2 % (35.3-44.9); Hemoglobin 9.1 g/dL (11.5-15.4); Immature Granulocytes % 0.4 % (0-4); Lymphocytes % 23.9 %; Mean Corpuscular HGB Conc 31.2 g/dL (31.6-35.5); Mean Corpuscular Hemoglobin 26.1 pg (28.0-33.3); Mean Corpuscular Volume 83.9 fL (83.0-100.0); Mean Platelet Volume 9.4 fL (9.4-12.4); Monocytes # 0.9 K/mcL (0.0-1.3); Monocytes % 10.9 %; Platelet Count 350 K/mcL (140-400); Red Blood Count 3.48 M/mcL (3.82-4.97); Red Cell Distribution Width 13.7 % (11.5-14.5); Segmented Neutrophils % 61.2 %
--- NOTE | 2019-04-08 20:56 | Emergency Department Note ---
Disposition Clinical Impression: Abnormal CT scan Anemia Qualifiers: Anemia type: unspecified type Qualified Code(s): D64.9 - Anemia, unspecified Abdominal pain Qualifiers: Abdominal location: generalized Qualified Code(s): R10.84 - Generalized abdominal pain Disposition: Admitted As Inpatient Condition: Fair Time of Disposition: 21:19 General Adult HPI - General Chief complaint: ED Recheck/Abnormal Lab/Rx Stated complaint: abnormal CT Time Seen by Provider: 04/08/19 19:19 Source: patient Mode of arrival: ambulatory Limitations: no limitations Nursing Notes Reviewed: Yes Vital Signs Reviewed: Yes - History of Present Illness HPI Narrative: 83 yo female with PMHx of cellulitis and hypothyroidism presents to the emergency department after her surgeon, Dr. Healy received concerning CT scan results. On review the CT scan there is concern for possible intra-abdominal hemorrhage but can be seen surrounding the liver and in the lower abdomen of the patient. Patient states she got the CT scan because she has been having some chronic abdominal pain with nausea. Patient has not had any chest pain or shortness breath, has not been more fatigued than normal, denies fevers at home, and has not had any abdominal trauma recently. Patient denies trouble with urination, blood in her urine, problems with bowel movements. She is not on any anticoagulation. Pain Scale: 0 - Related Data Home Medications Medication Instructions Recorded Confirmed Iodine [Kelp] 150 mcg PO DAILY 09/03/17 04/08/19 Ascorbic Acid [Vitamin C with Mandy 500 mg PO DAILY 04/08/19 04/08/19 Hips] Aspirin [Lo-Dose Aspirin EC] 81 mg PO DAILY 04/08/19 04/08/19 Famotidine [Pepcid] 40 mg PO HS 04/08/19 04/08/19 Ferrous Sulfate [Iron] 325 mg PO DAILY 04/08/19 04/08/19 Levothyroxine [Synthroid] 75 mcg PO 0630 04/08/19 04/08/19 [place]-3/Dha/Epa/Fish Oil [Fish Oil 1 each PO DAILY 04/08/19 04/08/19 1,000 mg Softgel] hydroCHLOROthiazide 25 mg PO DAILY 04/08/19 04/08/19 [Hydrochlorothiazide] Allergies Allergy/AdvReac Type Severity Reaction Status Date / Time No Known Allergies Allergy Verified 09/11/17 08:48 All systems ED: reviewed and negative except as stated. Review of Systems: As Per HPI Constitutional: Denies: fever, chills, weakness Cardiovascular: Denies: chest pain, palpitations, dyspnea on exertion Respiratory: Denies: cough, dyspnea, wheezes Gastrointestinal: Reports: abdominal pain, nausea. Denies: vomiting, diarrhea, constipation Genitourinary: Denies: dysuria, hematuria Musculoskeletal: Denies: back pain, neck pain Integumentary: Denies: rash Neurological: Denies: headache, weakness Psychiatric: Denies: anxiety, depression Endocrine: Denies: fatigue Hematological/Lymphatic: Denies: easy bleeding, easy bruising Past Medical History - Past Medical History Attestation: Yes The following information was validated with the patient. Source: patient Medical history: Reports: arthritis, thyroid disease Surgical history: Reports: appendectomy, knee replacement Psychiatric history: Reports: no psych history - Social History Smoking Status: Former smoker Smokeless Tobacco Status: No Alcohol use: Reports: rarely Drug use: Reports: none Physical Exam - General Limitations: no limitations General appearance: alert, in no apparent distress - Head Head exam: atraumatic, normocephalic - Eye Eye exam: Present: normal appearance, PERRL, EOMI - ENT ENT exam: normal exam, normal oropharynx - Neck Neck exam: Present: normal inspection. Absent: tenderness, lymphadenopathy - Chest Chest inspection: Present: normal inspection. Absent: tenderness - Respiratory Respiratory exam: Present: normal lung sounds bilaterally. Absent: wheezes - Cardiovascular Cardiovascular exam: Present: regular rate, normal rhythm - Abdominal Exam Abdominal exam: Present: soft, Non-Tender, other (Abdominal is non-peritoneal come patient has no abdominal pain to palpation. There is no visible bruising including either flank, the periumbilical area, or epigastric area.). Absent: distention, guarding, rebound, rigidity, Huang's sign, Rovsing's sign, pulsatile mass, hernia - Extremities Exam Extremities exam: Present: normal inspection. Absent: tenderness, pedal edema - Back Exam Back exam: Present: normal inspection. Absent: tenderness, CVA tenderness (R), CVA tenderness (L) - Neurological Exam Neurological exam: Present: alert, oriented X3 - Psychiatric Psychiatric exam: Present: normal affect, normal mood - Skin Skin exam: Present: warm, dry, intact Course Vital Signs Temperature 98.4 F 04/08/19 19:07 Pulse Rate 59 04/08/19 19:07 Respiratory Rate 18 04/08/19 19:07 Blood Pressure 146/83 04/08/19 19:07 O2 Sat by Pulse Oximetry 97 04/08/19 19:07 Temperature 97.5 F L 04/09/19 10:06 Pulse Rate 56 04/09/19 10:06 Respiratory Rate 16 04/09/19 10:06 Blood Pressure 123/63 04/09/19 10:06 O2 Sat by Pulse Oximetry 95 04/09/19 10:06 Oxygen Delivery Oxygen Delivery Room Air Medical Decision Making - MDM Narrative Medical decision making narrative: Patient presents with what looks like blood on the CT scan but the patient's abdominal exam is completely benign. Bedside fast exam does not demonstrate any hypoechoic fluid in either flank, through the bladder area, or surrounding the liver as demonstrated on the CT scan. Dr. Enciso was called and he suggests obtaining lab work, admitting to hospital for serial hemoglobin checks and abdominal exams. 2114 - patient has been accepted by the hospitalist for trending of the hemoglobin as her labs are stable at this point in time. Dr. Enciso, acute care surgeon ammonium sulfate operator was made aware of this patient as well. - Medical Records Medical records reviewed: Yes I reviewed the patient's medical records. - Lab Data Lab results reviewed: Yes I reviewed the patient's lab results. Result diagrams: 04/09/19 09:36 04/09/19 05:26 Lab Results 04/08/19 04/08/19 04/08/19 Range/Units 19:21 19:21 19:21 WBC 8.2 (4.3-11.1) K/mcL RBC 3.48 L (3.82-4.97) M/mcL Hgb 9.1 L (11.5-15.4) g/dL Hct 29.2 L (35.3-44.9) % MCV 83.9 (83.0-100.0) fL MCH 26.1 L (28.0-33.3) pg MCHC 31.2 L (31.6-35.5) g/dL RDW 13.7 (11.5-14.5) % Plt Count 350 (140-400) K/mcL MPV 9.4 (9.4-12.4) fL Immature Gran % 0.4 (0-4) % Seg Neutrophils % 61.2 % Lymphocytes % 23.9 % Monocytes % 10.9 % Eosinophils % 3.1 % Basophils % 0.5 % Neutrophils # 5.0 (1.6-8.9) K/mcL Lymphocytes # 2.0 (0.6-4.6) K/mcL Monocytes # 0.9 (0.0-1.3) K/mcL Eosinophils # 0.3 (0.0-0.6) K/mcL Basophils # 0.0 (0.0-0.2) K/mcL PT 12.8 H (9.4-12.1) Seconds INR 1.1 APTT 31.1 (26.0-36.0) Seconds Sodium 135 L (136-145) mEq/L Potassium 4.1 (3.5-5.1) mEq/L Chloride 97 L (98-107) mEq/L Carbon Dioxide 30 H (23-29) mEq/L BUN 25 H (8-23) mg/dL Creatinine 0.66 (0.60-1.20) mg/dL Est GFR ( Amer) > 60 (> 60) Est GFR (Non-Af Amer) > 60 (> 60) BUN/Creatinine Ratio 38 H (6-26) Glucose 107 H (70-105) mg/dL Calculated Osmolality 285 (280-300) Lactic Acid (0.5-2.2) mmol/L Calcium 8.6 (8.6-10.3) mg/dL Total Bilirubin 0.3 (0.3-1.0) mg/dL Direct Bilirubin 0.0 (0.0-0.2) mg/dL Indirect Bilirubin 0.3 (0.0-1.2) mg/dL AST 11 L (13-39) Units/L ALT 6 L (7-52) Units/L Alkaline Phosphatase 48 (34-104) Units/L Troponin I 0.04 H* (< 0.04) ng/mL Serum Total Protein 6.4 (6.4-8.9) g/dL Albumin 3.5 (3.5-5.7) g/dL Globulin 2.9 (2.4-3.5) g/dL Albumin/Globulin Ratio 1.2 (1.1-2.2) Lipase 9 L (11-82) Units/L Urine Color (Yellow) Urine Clarity (Clear) Urine pH (5.0-8.0) pH Units Ur Specific [place] (1.010-1.025) Urine Protein (Neg-Trace) mg/dL Urine Glucose (UA) (Normal) mg/dL Urine Ketones (Negative) mg/dL Urine Blood (Negative) Urine Nitrite (Negative) Urine Bilirubin (Negative) Urine Urobilinogen (Normal) mg/dL Ur Leukocyte Esterase (Negative) Urine Microscopic RBC (0-3) per hpf Urine Microscopic WBC (0-3) per hpf Ur Squamous Epith Cells (None-Few) per lpf Urine Bacteria (None-Few) per hpf Hyaline Casts (None-Few) per lpf Ur Culture Indicated? (NO) Blood Type Antibody Screen 04/08/19 04/08/19 04/08/19 Range/Units 19:39 20:40 20:40 WBC (4.3-11.1) K/mcL RBC (3.82-4.97) M/mcL Hgb (11.5-15.4) g/dL Hct (35.3-44.9) % MCV (83.0-100.0) fL MCH (28.0-33.3) pg MCHC (31.6-35.5) g/dL RDW (11.5-14.5) % Plt Count (140-400) K/mcL MPV (9.4-12.4) fL Immature Gran % (0-4) % Seg Neutrophils % % Lymphocytes % % Monocytes % % Eosinophils % % Basophils % % Neutrophils # (1.6-8.9) K/mcL Lymphocytes # (0.6-4.6) K/mcL Monocytes # (0.0-1.3) K/mcL Eosinophils # (0.0-0.6) K/mcL Basophils # (0.0-0.2) K/mcL PT (9.4-12.1) Seconds INR APTT (26.0-36.0) Seconds Sodium (136-145) mEq/L Potassium (3.5-5.1) mEq/L Chloride (98-107) mEq/L Carbon Dioxide (23-29) mEq/L BUN (8-23) mg/dL Creatinine (0.60-1.20) mg/dL Est GFR ( Amer) (> 60) Est GFR (Non-Af Amer) (> 60) BUN/Creatinine Ratio (6-26) Glucose (70-105) mg/dL Calculated Osmolality (280-300) Lactic Acid 0.3 L (0.5-2.2) mmol/L Calcium (8.6-10.3) mg/dL Total Bilirubin (0.3-1.0) mg/dL Direct Bilirubin (0.0-0.2) mg/dL Indirect Bilirubin (0.0-1.2) mg/dL AST (13-39) Units/L ALT (7-52) Units/L Alkaline Phosphatase (34-104) Units/L Troponin I (< 0.04) ng/mL Serum Total Protein (6.4-8.9) g/dL Albumin (3.5-5.7) g/dL Globulin (2.4-3.5) g/dL Albumin/Globulin Ratio (1.1-2.2) Lipase (11-82) Units/L Urine Color Yellow (Yellow) Urine Clarity Clear (Clear) Urine pH 6.5 (5.0-8.0) pH Units Ur Specific [place] 1.013 (1.010-1.025) Urine Protein Negative (Neg-Trace) mg/dL Urine Glucose (UA) Normal (Normal) mg/dL Urine Ketones Negative (Negative) mg/dL Urine Blood Trace H (Negative) Urine Nitrite Negative (Negative) Urine Bilirubin Negative (Negative) Urine Urobilinogen Normal (Normal) mg/dL Ur Leukocyte Esterase Negative (Negative) Urine Microscopic RBC 0-3 (0-3) per hpf Urine Microscopic WBC 0-3 (0-3) per hpf Ur Squamous Epith Cells Few (None-Few) per lpf Urine Bacteria None Seen (None-Few) per hpf Hyaline Casts None Seen (None-Few) per lpf Ur Culture Indicated? NO (NO) Blood Type A POSITIVE Antibody Screen NEGATIVE - Radiology Data Radiology results reviewed: Yes I reviewed the patient's radiology results. - EKG Data EKG #1 EKG attestation: Yes I reviewed and interpreted this EKG. EKG results narrative: EKG obtained at 19:32 on 04/08/2019 Heart rate 62 bpm, [place] interval 255, QRS duration 100, QT 384, QTC 390 Sinus rhythm with LVH. No signs of ST segment elevation or depression. No other T-wave abnormalities. No old EKG for comparison. Attestation Statement - Attestation Attestation: Resident Attestation: I examined this patient and my medical decision making was reviewed with the Resident Physician. I agree with the documented findings, disposition and treatment plan as described except to the extent set forth below. We independently had [id number] contact with the patient. Patient presenting to the emergency department for evaluation of abnormal CAT scan. Abnormal CAT scan was performed at our facility and was immediately available for review. Patient with concern with abnormal slices on CAT scan for possible hemorrhage. Nonspecific at this time. No specific etiology. There is no underlying free air. The patient arrived to the emergency department after waiting another emergency department for 3 hours. She ambulated to the bathroom because she states she needed to PE. She has no difficulty with ambulation. Patient states initial CAT scan was performed secondary to abdominal pain she had been experiencing in the right lower quadrant where her previous surgery site was from appendectomy 2 years ago. Patient did have complete patient after this and did require ICU stay. The patient case was discussed with surgery. Blood work is still being obtained. Patient will need to have repeat hemoglobins. Patient's vital signs are stable. Clinically she is in no di stress. Observation at this time is recommended. Patient's blood work shows hemoglobin of 9. No recent blood work. Most recent hemoglobin was 2 years ago and also found to be 9. She continues to have only minor symptoms. Patient's abdomen is non-peritoneal. Patient's blood pressure has been stable. Patient is not tachycardic. Patient is not on beta blockers. Patient has been discussed with the hospitalist. Patient does have 2 large-bore IVs. Patient will continue to be monitored. Patient did have an elevated troponin of 0.04. Patient is not having chest pain. Patient with no specific EKG changes. Given the concern for blood in her abdomen this will also be repeated.
[2019-04-08 21:00] LABS: INR 1.1; Prothrombin Time 12.8 Seconds (9.4-12.1)
[2019-04-08 21:03] LABS: Activated Partial Thrombo Time 31.1 Seconds (26.0-36.0)
[2019-04-08 21:22] LABS: Alanine Aminotransferase 6 Units/L (7-52); Albumin 3.5 g/dL (3.5-5.7); Albumin/Globulin Ratio 1.2 (1.1-2.2); Alkaline Phosphatase 48 Units/L (34-104); Aspartate Amino Transferase 11 Units/L (13-39); BUN/Creatinine Ratio 38 (6-26); Bilirubin,Indirect 0.3 mg/dL (0.0-1.2); Bilirubin,Total 0.3 mg/dL (0.3-1.0); Blood Urea Nitrogen 25 mg/dL (8-23); Calcium 8.6 mg/dL (8.6-10.3); Carbon Dioxide 30 mEq/L (23-29); Chloride 97 mEq/L (98-107); Globulin 2.9 g/dL (2.4-3.5); Glucose 107 mg/dL (70-105); Lipase 9 Units/L (11-82); Osmolality,Calculated 285 (280-300); Potassium 4.1 mEq/L (3.5-5.1); Sodium 135 mEq/L (136-145); Total Protein 6.4 g/dL (6.4-8.9); Troponin I 0.04 ng/mL (< 0.04); eGFR For Non-African Americans > 60 (> 60)
[2019-04-08] MEDS ORDERED: Ondansetron 4 MG/2 ML VIAL IVP PRN (21:54)
[2019-04-08] MEDS ORDERED: Naloxone 0.4 MG/ML INJ IVP PRN (21:54)
--- NOTE | 2019-04-08 21:57 | Internal Med History&Physical ---
<Nghia Elizondo S - Last Filed: 04/08/19 22:31> Date of Encounter: 04/08/19 Time of Encounter: 21:57 Internal Medicine - H&P: HPI Chief complaint: abdominal pain Admitted From: Emergency Dept Plans for Post Hospital Care: Home History of present illness: Ms. Sears is a 83 year old female with PMH of hypothyroidism, HTN, obesity, GERD and arthritis. She states she started experiencing abdominal pain about 3 months ago and didn't want to come in for an evaluation. Around the same time she started to take ibuprofen everyday for her abdominal pain. She also reports having some bloody bowel movements, she reports occasionally her BM would have bright red blood in them but this hasn't occurred in 2-3 weeks. She reports that in 2017 she had an emergency appendectomy and that she had multiple complica tions from this surgery and Dr Healy took care of her for the abdominal abscess that formed. She states that she had pain around the incision around that time but denies any incisional pain. She does continue to have abdominal pain in the RLQ/LLQ. She has had a decreased appetite but is able to still tolerate food. She denies any recent trauma, falls, or back pain. She denies active chest pain. She denies anticoagulation use. She denies worsening shortness of breath. In the ER she was found to have potential source of bleeding on CT scan and Dr. Enciso was contacted, who is on-call surgeon for acute care sx. She was found to have an elevated troponin of 0.04. Hemoglobin was 9.1 on initial H&H with normal MCV. She will be admitted to [facility] for further evaluation and treatment. Past Med Surg Social Fam HX - Past Medical History Medical history: arthritis, thyroid disease Psychiatric history: no psych history - Past Surgical History Surgical History: appendectomy, knee replacement Additional surgical history: Bilateral knee replacement, - Social History Smoking Status: Former smoker Smokeless Tobacco Status: No Alcohol use: rarely Drug use: none - Family History Daughter Living Status: Hx Family Cancer: Yes (melanoma) Internal Medicine - H&P: Meds Iodine [Kelp] 150 mcg PO DAILY 09/03/17 [History] Ascorbic Acid [Vitamin C with Mandy Hips] 500 mg PO DAILY 04/08/19 [History] Aspirin [Lo-Dose Aspirin EC] 81 mg PO DAILY 04/08/19 [History] Famotidine [Pepcid] 40 mg PO HS 04/08/19 [History] Ferrous Sulfate [Iron] 325 mg PO DAILY 04/08/19 [History] Levothyroxine [Synthroid] 75 mcg PO 0630 04/08/19 [History] [place]-3/Dha/Epa/Fish Oil [Fish Oil 1,000 mg Softgel] 1 each PO DAILY 04/08/19 [History] hydroCHLOROthiazide [Hydrochlorothiazide] 25 mg PO DAILY 04/08/19 [History] Allergy/AdvReac Type Severity Reaction Status Date / Time No Known Allergies Allergy Verified 09/11/17 08:48 All Systems PM: A 10-system review of systems was performed and is negative for pertinent findings except as documented above in the HPI. - Constitutional Constitutional: chills, fatigue, fever(s), weakness - EENT Eyes: no blurry vision, no change in vision Ears: no tinnitus Nose, mouth and throat: no bleeding gums, no epistaxis - Cardiovascular Cardiovascular ROS IM: dyspnea, dyspnea on exertion, lightheadedness, no chest pain, no orthopnea, no palpitations, no paroxysmal nocturnal dyspnea, no syncope - Respiratory Respiratory: dyspnea, dyspnea on exertion, no cough, no hemoptysis, no chest congestion - Gastrointestinal Gastrointestinal: abdominal pain, bloating, hematochezia, nausea, no diarrhea, no hematemesis, no vomiting - Musculoskeletal Musculoskeletal ROS IM: arthralgias, back pain - Integumentary Integumentary IM: no pruritus, no rash - Neurological Neurological ROS: dizziness, no numbness, no tingling - Psychiatric Psychiatric: no anxiety, no confusion, no depression - Endocrine Endocrine IM: fatigue - Hematologic/Lymphatic Hematologic/Lymphatic: no easy bleeding, no easy bruising - Constitutional Vitals: Temp Pulse Resp BP Pulse Ox 98.4 F 59 18 146/83 97 04/08/19 19:07 04/08/19 19:07 04/08/19 19:07 04/08/19 19:07 04/08/19 19:07 General appearance: Present: cooperative, A&O X 3, pleasant, obese Exam: general - AOx3, NAD, pleasant, cooperative heent - NCAT, MMM eyes - no scleral icterus neck - no jvd, soft without LAD cardio - rrr,s1s2,cta no mrg lungs - ctab, no respiratory distress, no wheeze/rhonchi/rales abd - soft but distended, TTP in RLQ/LLQ, no peritoneal signs, no rebound or guarding small bruise on the abdomen back - no bruising, no back pain, no spinal tenderness extremities - moves all limbs equally, 5/5 strength neuro - no FND, CN2-12 intact, sensation intact skin - warm, dry, intact psych - normal mood/affect Internal Med - H&P Results - Labs CBC & Chem 7: 04/08/19 22:16 04/08/19 19:21 Labs: Short CBC 04/08/19 Range/Units 19:21 WBC 8.2 (4.3-11.1) K/mcL Hgb 9.1 L (11.5-15.4) g/dL Hct 29.2 L (35.3-44.9) % Plt Count 350 (140-400) K/mcL Neutrophils # 5.0 (1.6-8.9) K/mcL BMP 04/08/19 19:21 Sodium 135 L Potassium 4.1 Chloride 97 L Carbon Dioxide 30 H BUN 25 H Creatinine 0.66 Glucose 107 H Calcium 8.6 Cardiac Enzymes 04/08/19 Range/Units 19:21 Troponin I 0.04 H* (< 0.04) ng/mL Liver Function 04/08/19 Range/Units 19:21 Total Bilirubin 0.3 (0.3-1.0) mg/dL Direct Bilirubin 0.0 (0.0-0.2) mg/dL AST 11 L (13-39) Units/L ALT 6 L (7-52) Units/L Alkaline Phosphatase 48 (34-104) Units/L Albumin 3.5 (3.5-5.7) g/dL Urine 04/08/19 Range/Units 19:39 Urine Color Yellow (Yellow) Urine Clarity Clear (Clear) Urine pH 6.5 (5.0-8.0) pH Units Ur Specific [place] 1.013 (1.010-1.025) Urine Protein Negative (Neg-Trace) mg/dL Urine Glucose (UA) Normal (Normal) mg/dL - Assessment and Plan (1) Abdominal pain Current Visit: Yes Status: Acute Assessment and plan: Pt presented to [facility] after getting abnormal lab results - has had abdominal pain in the LLQ/RLQ x 3 mos, increasing over the last few days - noticed blood in bowel movements about 2-3 weeks ago; denies anticoagulation use or recent trauma to the back - has had hx of appendectomy at [facility] with multiple complications in 2017 - does report beginning ibuprofen a few weeks ago and has been taking multiple times per day Pt not on any anticoagulation Denies recent trauma to the back, no bruising noted to the abdomen Has had colonoscopy in the past, denies personal hx or family hx of CRC EKG negative for acute ST elevation or ischemia CT abdomen at [facility]: - There is a tubular area of contrast seen in the right lower quadrant mesentery, on image 143. Its appearance raises the question of active bleeding- contrast extravasation. - Mild to moderate abdominal and pelvic ascites. Increased density is seen within the pelvic fluid inferiorly, suggesting hemorrhage-hematoma- hemoperitoneum. - Nodular appearance of the mesentery is seen, which may be related to the suspected hemorrhage - There is a nodular area of fluid seen in the right lower quadrant, in the subcutaneous fat measuring 1.9 cm x 2.2 cm.. - This appears hyperdense suggesting hemorrhage or proteinaceous debris Patient noted to be anemic, with a hemoglobin of 9.1 and normal MCV which raises the suspicion for acute GIB - no clear baseline, pt has only been here in the setting of surgery - pt was typed and crossed in the ER Concern that the patient has been actively bleeding, tamponaded, and is now bleeding again vs ?underlying cancer/bleeding mass Plan: - continue telemetry monitoring - VS assessment per nursing protocol - avoid ASA and NSAIDs - IV protonix q12hr - gentle hydration 50cc/hr, pt unsure if she has CHF and no ECHO on file - H&H q6hr - zofran prn nausea - consults: acute care surgery, ER resident spoke to Dr. Zaria Enciso suggests monitoring H&H --- next one due around 03:30, will not order bleeding scan at this time If there is an acute drop, plan for bleeding scan in the morning - DVT prophylaxis: SCD - FEN: NPO - dispo: surgical/GI workup, will be admitted as an inpatient Qualifiers: Abdominal location: generalized Qualified Code(s): R10.84 - Generalized abdominal pain (2) Nausea Current Visit: Yes Status: Acute Assessment and plan: Zofran ivp q6hr (3) Hypertension Current Visit: No Status: Chronic Assessment and plan: on HCTZ. chronic, con't home meds. Qualifiers: Hypertension type: essential hypertension Qualified Code(s): I10 - Essential (primary) hypertension (4) Obesity Current Visit: No Status: Chronic Assessment and plan: BMI 37.9, chronic, counseled. Qualifiers: Obesity type: due to excess calories Obesity classification: adult class 2 (BMI 35 - 39.9) Serious obesity comorbidity presence: without serious comorbidity Body mass index: BMI 37.0-37.9 Qualified Code(s): E66.09 - Other obesity due to excess calories; Z68.37 - Body mass index (BMI) 37.0-37.9, adult (5) GERD (gastroesophageal reflux disease) Current Visit: No Status: Chronic Assessment and plan: On famotidine at home. Will give ivp protonix for GI prophylaxis. Qualifiers: Esophagitis presence: without esophagitis Qualified Code(s): K21.9 - Gastro-esophageal reflux disease without esophagitis (6) Abnormal CT scan Current Visit: Yes Status: Acute Assessment and plan: CT abdomen at [facility]: - There is a tubular area of contrast seen in the right lower quadrant mesentery, on image 143. Its appearance raises the question of active bleeding- contrast extravasation. - Mild to moderate abdominal and pelvic ascites. Increased density is seen within the pelvic fluid inferiorly, suggesting [id number]. - Nodular appearance of the mesentery is seen, which may be related to the suspected hemorrhage - There is a nodular area of fluid seen in the right lower quadrant, in the subcutaneous fat measuring 1.9 cm x 2.2 cm.. - This appears hyperdense suggesting hemorrhage or proteinaceous debris See plan above. (7) Anemia Current Visit: Yes Status: Acute Assessment and plan: Hemoglobin 9.1 on admission, H&H qhr, GI prophylaxis, SCD. 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 See plan as above for abdominal pain. Qualifiers: Anemia type: unspecified type Qualified Code(s): D64.9 - Anemia, unspecified (8) DVT prophylaxis Current Visit: Yes Status: Acute Assessment and plan: scd in the setting of potential intra-abdominal bleed (9) Hypothyroidism Current Visit: No Status: Chronic Assessment and plan: on synthroid, con't home meds Qualifiers: Hypothyroidism type: unspecified Qualified Code(s): E03.9 - Hypothyroidism, unspecified (10) S/P appendectomy Current Visit: No Status: Chronic Assessment and plan: Surgery with Dr Healy 08/2017 after she had an appendectomy was found to have gangrene and abdominal wall abscess. See above for abdominal pain. (11) Elevated troponin Current Visit: Yes Status: Acute Assessment and plan: Troponin 0.04, likely type 2 in the setting of demand ischemia from questionable active bleed. Will trend x 3. Denies active chest pain. ECHO pending. - Time Spent With Patient Total time spent is greater than 50% in coordination of care (as documented) at patient's floor/unit and/or counseling patient: 25 - 35 minutes <Fan Riggs - Last Filed: 04/09/19 01:38> Date of Encounter: 04/09/19 Time of Encounter: 01:00 - Constitutional Constitutional: fatigue, weakness, no falls - Cardiovascular Cardiovascular ROS IM: dyspnea, dyspnea on exertion, no chest pain - Respiratory Respiratory: dyspnea - Gastrointestinal Gastrointestinal: abdominal pain, nausea, no diarrhea, no hematemesis, no melena, no vomiting - Genitourinary Genitourinary: no dysuria, no flank pain, no hematuria - Neurological Neurological ROS: no dizziness, no focal weakness, no frequent falls, no headache(s) - Hematologic/Lymphatic Hematologic/Lymphatic: no easy bruising - Allergic/Immunologic Allergic/Immunologic: no GI upset with certain foods - Constitutional Vitals: Temp Pulse Resp BP Pulse Ox 97.8 F 65 16 154/61 95 04/08/19 22:42 04/08/19 22:42 04/08/19 22:42 04/08/19 22:42 04/08/19 22:42 General appearance: Present: cooperative, A&O X 3, pleasant - Head Head exam: Present: atraumatic, normal inspection - Eye Eye exam: Present: PERRL. Absent: scleral icterus - ENT ENT exam: Present: mucous membranes dry, normal exam - Neck Neck exam general surgery: Present: supple, trachea midline - Respiratory Respiratory exam: Present: CTAB. Absent: chest wall tenderness, rales, rhonchi, wheezes - Cardiovascular Cardiovascular exam: Present: distant heart sounds, +S1, +S2. Absent: diastolic murmur, systolic murmur - GI/Abdominal GI/Abdominal exam: Present: normal bowel sounds, soft, tenderness (minimal tenderness), no peritoneal signs. Absent: guarding, mass, rebound - Extremities Exam Extremities exam: Present: warm, radial pulses palpable and symmetrical. Absent: calf tenderness, tenderness - Back Exam Back exam: Absent: CVA tenderness (L), CVA tenderness (R) - Neurological Exam Neurological exam: Present: alert, CN II-XII intact, oriented X3, strengths equal and symetr throughout - Skin Skin exam: Present: dry, intact, warm Internal Med - H&P Results - Labs CBC & Chem 7: 04/08/19 22:16 04/08/19 19:21 Labs: Short CBC 04/08/19 04/08/19 Range/Units 19:21 22:16 WBC 8.2 (4.3-11.1) K/mcL Hgb 9.1 L 9.2 L (11.5-15.4) g/dL Hct 29.2 L 29.6 L (35.3-44.9) % Plt Count 350 (140-400) K/mcL Neutrophils # 5.0 (1.6-8.9) K/mcL BMP 04/08/19 19:21 Sodium 135 L Potassium 4.1 Chloride 97 L Carbon Dioxide 30 H BUN 25 H Creatinine 0.66 Glucose 107 H Calcium 8.6 Cardiac Enzymes 04/08/19 04/08/19 Range/Units 19:21 22:16 Troponin I 0.04 H* 0.04 H* (< 0.04) ng/mL Liver Function 04/08/19 Range/Units 19:21 Total Bilirubin 0.3 (0.3-1.0) mg/dL Direct Bilirubin 0.0 (0.0-0.2) mg/dL AST 11 L (13-39) Units/L ALT 6 L (7-52) Units/L Alkaline Phosphatase 48 (34-104) Units/L Albumin 3.5 (3.5-5.7) g/dL Urine 04/08/19 Range/Units 19:39 Urine Color Yellow (Yellow) Urine Clarity Clear (Clear) Urine pH 6.5 (5.0-8.0) pH Units Ur Specific [place] 1.013 (1.010-1.025) Urine Protein Negative (Neg-Trace) mg/dL Urine Glucose (UA) Normal (Normal) mg/dL - Assessment and Plan (1) S/P appendectomy Current Visit: No Status: Chronic (2) Hypothyroidism Current Visit: No Status: Chronic Qualifiers: Hypothyroidism type: unspecified Qualified Code(s): E03.9 - Hypothyroidism, unspecified (3) DVT prophylaxis Current Visit: Yes Status: Acute (4) Anemia Current Visit: Yes Status: Acute Qualifiers: Anemia type: unspecified type Qualified Code(s): D64.9 - Anemia, unspecified (5) Abnormal CT scan Current Visit: Yes Status: Acute (6) Abdominal pain Current Visit: Yes Status: Acute Qualifiers: Abdominal location: generalized Qualified Code(s): R10.84 - Generalized abdominal pain (7) Nausea Current Visit: Yes Status: Acute (8) Hypertension Current Visit: No Status: Chronic Qualifiers: Hypertension type: essential hypertension Qualified Code(s): I10 - Essential (primary) hypertension (9) Obesity Current Visit: No Status: Chronic Qualifiers: Obesity type: due to excess calories Obesity classification: adult class 2 (BMI 35 - 39.9) Serious obesity comorbidity presence: without serious comorbidity Body mass index: BMI 37.0-37.9 Qualified Code(s): E66.09 - Other obesity due to excess calories; Z68.37 - Body mass index (BMI) 37.0-37.9, adult (10) GERD (gastroesophageal reflux disease) Current Visit: No Status: Chronic Qualifiers: Esophagitis presence: without esophagitis Qualified Code(s): K21.9 - Gastro-esophageal reflux disease without esophagitis (11) Elevated troponin Current Visit: Yes Status: Acute - Time Spent With Patient Total time spent is greater than 50% in coordination of care (as documented) at patient's floor/unit and/or counseling patient: - Attending Attestation I discussed the patient [place], past medical history, review of systems, lab data, imaging data, and exam findings with Dr. Elizondo. I then saw and examined patient independently as well. I also spoke with Dr. Enciso about her history and plan of care. During my interview, patient states she has no belly pain now except minimal tenderness on exam. She states she had abdominal pain several weeks ago, prompting her surgeon to order CT scan of abdomen and pelvis. I suspect that if she bled internally that she bled at that time when she was having pain. She denies any trauma or injury. She denies any recent intervention endovascularly. I reviewed the CAT scan findings with Dr. Enciso and Dr. Elizondo. He will follow her clinically and we will monitor her H&H as well. Should she have any significant hemoglobin drop, we will proceed with bleeding scan. If her hemoglobin remains stable and she remains hemodynamically stable, she likely need no further workup other than outpatient follow-up. I discussed this with patient and her and they both voiced understanding and agreement. Other than my comments above and documented exam findings, I agree with Dr. Elizondo's assessment and plan.
[2019-04-08 22:28] LABS: Hematocrit 29.6 % (35.3-44.9); Hemoglobin 9.2 g/dL (11.5-15.4)
[2019-04-08 22:42] LABS: % Iron Saturation 12 % (15-50); Iron 42 mcg/dL (50-170); Transferrin 243 mg/dL (203-362)
--- NOTE | 2019-04-08 23:32 | AcuteCare Surgery Consult Note ---
Date of Encounter: 04/08/19 Time of Encounter: 23:27 Assessment and Plan (1) Intraperitoneal bleeding Current Visit: Yes Status: Acute 83F with intraabdominal blood, not active bleeding, as well as blood within the pelvis. No reports for trauma; possible hemorraghic cyst of the ovary? trend h/h hold chemical anticoagulaiton no acute surgery will continue to follow History of Present Illness Consult date: 04/08/19 Reason for consult: abdominal pain History of present illness: 83 year old female with PMH of hypothyroidism, HTN, obesity, GERD and arthritis who has been experiencing abdominanl pain x 3 months (at present she has no pain). The pain was all along her mid and lower abdomen, non radiating, witih no identifiable precipitating event, nor alleviating or exacerbating factors. She denies any recent trauma nor any history suggestive of vascular aneursyms. No reports of anticoagulation use. A CT scan was obtained which demonstrated what appears to be blood within the abdomen and down in the pelvis. hgb currently @ ~9. Past Med Surg Social Fam HX - Past Medical History Medical history: arthritis, thyroid disease Psychiatric history: no psych history - Past Surgical History Surgical History: appendectomy, knee replacement Additional surgical history: Bilateral knee replacement, - Social History Smoking Status: Former smoker Smokeless Tobacco Status: No Alcohol use: rarely Drug use: none - Family History Daughter Living Status: Hx Family Cancer: Yes (melanoma) Medications and Allergies Iodine [Kelp] 150 mcg PO DAILY 09/03/17 [History] Ascorbic Acid [Vitamin C with Mandy Hips] 500 mg PO DAILY 04/08/19 [History] Aspirin [Lo-Dose Aspirin EC] 81 mg PO DAILY 04/08/19 [History] Famotidine [Pepcid] 40 mg PO HS 04/08/19 [History] Ferrous Sulfate [Iron] 325 mg PO DAILY 04/08/19 [History] Levothyroxine [Synthroid] 75 mcg PO 0630 04/08/19 [History] [place]-3/Dha/Epa/Fish Oil [Fish Oil 1,000 mg Softgel] 1 each PO DAILY 04/08/19 [History] hydroCHLOROthiazide [Hydrochlorothiazide] 25 mg PO DAILY 04/08/19 [History] Allergy/AdvReac Type Severity Reaction Status Date / Time No Known Allergies Allergy Verified 09/11/17 08:48 Review of Systems All systems PM: 12 point ROS negative besides HPI findings General Surgery Exam Initial Vital Signs Temp Pulse Resp BP Pulse Ox 98.4 F 59 18 146/83 97 04/08/19 19:07 04/08/19 19:07 04/08/19 19:07 04/08/19 19:07 04/08/19 19:07 - General physical appearance no distress - Eyes normal ocular movement - ENT normocephalic - Neck trachea midline, no lymphadectomy - Respiratory normal expansion, normal respiratory effort - Cardiovascular Cardiovascular exam: Present: RRR - Abdomen Abdomen general surgery: Present: soft, non tender - Integumentary Integumentary general surgery: Present: warm and dry - Neurologic Present: CN 2-12 grossly intact - Musculoskeletal Present: normal posture - Psychiatric Psychiatric general surgery: Present: A&Ox3 Exam Initial Vital Signs Temp Pulse Resp BP Pulse Ox 98.4 F 59 18 146/83 97 04/08/19 19:07 04/08/19 19:07 04/08/19 19:07 04/08/19 19:07 04/08/19 19:07 Results - Labs 04/08/19 22:16 04/08/19 19:21 Abnormal lab results RBC 3.48 M/mcL (3.82-4.97) L 04/08/19 19:21 Hgb 9.2 g/dL (11.5-15.4) L 04/08/19 22:16 Hct 29.6 % (35.3-44.9) L 04/08/19 22:16 MCH 26.1 pg (28.0-33.3) L 04/08/19 19:21 MCHC 31.2 g/dL (31.6-35.5) L 04/08/19 19:21 PT 12.8 Seconds (9.4-12.1) H 04/08/19 19:21 Sodium 135 mEq/L (136-145) L 04/08/19 19:21 Chloride 97 mEq/L (98-107) L 04/08/19 19:21 Carbon Dioxide 30 mEq/L (23-29) H 04/08/19 19:21 BUN 25 mg/dL (8-23) H 04/08/19 19:21 38 (6-26) H 04/08/19 19:21 Glucose 107 mg/dL (70-105) H 04/08/19 19:21 Lactic Acid 0.3 mmol/L (0.5-2.2) L 04/08/19 20:40 Iron 42 mcg/dL (50-170) L 04/08/19 22:16 % Saturation 12 % (15-50) L 04/08/19 22:16 AST 11 Units/L (13-39) L 04/08/19 19:21 ALT 6 Units/L (7-52) L 04/08/19 19:21 0.04 ng/mL (< 0.04) H* 04/08/19 22:16 9 Units/L (11-82) L 04/08/19 19:21 Trace (Negative) H 04/08/19 19:39 Diabetes panel 04/08/19 Range/Units 19:21 Sodium 135 L (136-145) mEq/L Potassium 4.1 (3.5-5.1) mEq/L Chloride 97 L (98-107) mEq/L Carbon Dioxide 30 H (23-29) mEq/L BUN 25 H (8-23) mg/dL Creatinine 0.66 (0.60-1.20) mg/dL Glucose 107 H (70-105) mg/dL Calcium 8.6 (8.6-10.3) mg/dL AST 11 L (13-39) Units/L ALT 6 L (7-52) Units/L Alkaline Phosphatase 48 (34-104) Units/L Albumin 3.5 (3.5-5.7) g/dL Calcium panel 04/08/19 Range/Units 19:21 Calcium 8.6 (8.6-10.3) mg/dL Albumin 3.5 (3.5-5.7) g/dL Pituitary panel 04/08/19 Range/Units 19:21 Sodium 135 L (136-145) mEq/L Potassium 4.1 (3.5-5.1) mEq/L Chloride 97 L (98-107) mEq/L Carbon Dioxide 30 H (23-29) mEq/L BUN 25 H (8-23) mg/dL Creatinine 0.66 (0.60-1.20) mg/dL Glucose 107 H (70-105) mg/dL Calcium 8.6 (8.6-10.3) mg/dL Adrenal panel 04/08/19 Range/Units 19:21 Sodium 135 L (136-145) mEq/L Potassium 4.1 (3.5-5.1) mEq/L Chloride 97 L (98-107) mEq/L Carbon Dioxide 30 H (23-29) mEq/L BUN 25 H (8-23) mg/dL Creatinine 0.66 (0.60-1.20) mg/dL Glucose 107 H (70-105) mg/dL Calcium 8.6 (8.6-10.3) mg/dL Total Bilirubin 0.3 (0.3-1.0) mg/dL AST 11 L (13-39) Units/L ALT 6 L (7-52) Units/L Alkaline Phosphatase 48 (34-104) Units/L Albumin 3.5 (3.5-5.7) g/dL All other labs normal. - Imaging CT scan - abdomen: report reviewed, image reviewed CT scan - pelvis: report reviewed, image reviewed Consult Discharge Plan - Plan Referrals: Nurys Antunez MD [Primary Care Provider] -
[2019-04-09] MEDS: 0.9 % Sodium Chloride 1,000 ML IVC SCH (00:22)
[2019-04-09 05:41] LABS: Hemoglobin 9.2 g/dL (11.5-15.4); Mean Corpuscular HGB Conc 30.7 g/dL (31.6-35.5); Mean Corpuscular Hemoglobin 25.7 pg (28.0-33.3); Mean Corpuscular Volume 83.8 fL (83.0-100.0); Mean Platelet Volume 9.3 fL (9.4-12.4); Platelet Count 355 K/mcL (140-400); Red Blood Count 3.58 M/mcL (3.82-4.97); Red Cell Distribution Width 13.5 % (11.5-14.5)
[2019-04-09 05:56] LABS: Alanine Aminotransferase 6 Units/L (7-52); Albumin 3.4 g/dL (3.5-5.7); Albumin/Globulin Ratio 1.3 (1.1-2.2); Alkaline Phosphatase 48 Units/L (34-104); Aspartate Amino Transferase 11 Units/L (13-39); BUN/Creatinine Ratio 33 (6-26); Bilirubin,Total 0.3 mg/dL (0.3-1.0); Blood Urea Nitrogen 21 mg/dL (8-23); Calcium 8.9 mg/dL (8.6-10.3); Carbon Dioxide 33 mEq/L (23-29); Chloride 100 mEq/L (98-107); Globulin 2.6 g/dL (2.4-3.5); Glucose 142 mg/dL (70-105); Magnesium 1.8 mg/dL (1.6-2.6); Osmolality,Calculated 291 (280-300); Potassium 4.5 mEq/L (3.5-5.1); Sodium 138 mEq/L (136-145); eGFR For Non-African Americans > 60 (> 60)
[2019-04-09] MEDS ORDERED: Pantoprazole 40 MG VIAL IVP SCH (06:00)
[2019-04-09] MEDS: IODINE PLUS PO SCH (09:41)
[2019-04-09] MEDS: hydroCHLOROthiazide 25 MG TABLET PO SCH (09:43)
[2019-04-09 09:51] LABS: Hematocrit 31.9 % (35.3-44.9)
--- NOTE | 2019-04-09 10:43 | AcuteCareSurgery Progress Note ---
Date of Encounter: 04/09/19 Time of Encounter: 10:41 - Assessment and Plan (1) Intraperitoneal bleeding Current Visit: Yes Status: Acute 83F with intraabdominal bleeding and bleeding into the pelvis; h/h stable; no pain; no identifiable bleeding source okay for diet if continued concern for bleeding, trend h/h if continues to drop then bleeding scan vs CT angio consider evaluation of ovaries for possible ruptured hemorrhagic ovarian cyst general surgery will sing off; call with new questions or concerns Subjective Patient reports: no new complaints, feels better Objective Vital Signs - Last 8 Hours Temp Pulse Resp BP Pulse Ox 04/09/19 10:06 97.5 F L 56 16 123/63 95 04/09/19 06:33 97.5 F L 53 16 132/79 95 04/09/19 03:56 98.0 F 58 15 160/73 94 Intake and Output 04/08/19 04/09/19 04/09/19 23:59 07:59 15:59 Intake Total 0 / 0 Output Total 250 / 250 Balance -250 / -250 Intake: Oral 0 / 0 Output: Urine 250 / 250 Other: Meal NPO # Voids 1 1 # Bowel Movements 0 Weight 99.8 kg 99.8 kg Blood Glucose* 131 Patient Weight 04/09/19 23:59 Weight 99.8 kg - General physical appearance no distress - Respiratory normal expansion, normal respiratory effort - Cardiovascular Cardiovascular exam: Present: RRR - Abdomen Abdomen: Present: soft, non tender - Neurologic CN 2-12 grossly intact - Psychiatric oriented to time, oriented to person, oriented to place - Labs 04/09/19 09:36 04/09/19 05:26 Diabetes panel 04/08/19 04/09/19 Range/Units 19:21 05:26 Sodium 135 L 138 (136-145) mEq/L Potassium 4.1 4.5 (3.5-5.1) mEq/L Chloride 97 L 100 (98-107) mEq/L Carbon Dioxide 30 H 33 H (23-29) mEq/L BUN 25 H 21 (8-23) mg/dL Creatinine 0.66 0.63 (0.60-1.20) mg/dL Glucose 107 H 142 H (70-105) mg/dL Calcium 8.6 8.9 (8.6-10.3) mg/dL AST 11 L 11 L (13-39) Units/L ALT 6 L 6 L (7-52) Units/L Alkaline Phosphatase 48 48 (34-104) Units/L Albumin 3.5 3.4 L (3.5-5.7) g/dL Calcium panel 04/08/19 04/09/19 Range/Units 19:21 05:26 Calcium 8.6 8.9 (8.6-10.3) mg/dL Albumin 3.5 3.4 L (3.5-5.7) g/dL Pituitary panel 04/08/19 04/09/19 Range/Units 19:21 05:26 Sodium 135 L 138 (136-145) mEq/L Potassium 4.1 4.5 (3.5-5.1) mEq/L Chloride 97 L 100 (98-107) mEq/L Carbon Dioxide 30 H 33 H (23-29) mEq/L BUN 25 H 21 (8-23) mg/dL Creatinine 0.66 0.63 (0.60-1.20) mg/dL Glucose 107 H 142 H (70-105) mg/dL Calcium 8.6 8.9 (8.6-10.3) mg/dL Adrenal panel 04/08/19 04/09/19 Range/Units 19:21 05:26 Sodium 135 L 138 (136-145) mEq/L Potassium 4.1 4.5 (3.5-5.1) mEq/L Chloride 97 L 100 (98-107) mEq/L Carbon Dioxide 30 H 33 H (23-29) mEq/L BUN 25 H 21 (8-23) mg/dL Creatinine 0.66 0.63 (0.60-1.20) mg/dL Glucose 107 H 142 H (70-105) mg/dL Calcium 8.6 8.9 (8.6-10.3) mg/dL Total Bilirubin 0.3 0.3 (0.3-1.0) mg/dL AST 11 L 11 L (13-39) Units/L ALT 6 L 6 L (7-52) Units/L Alkaline Phosphatase 48 48 (34-104) Units/L Albumin 3.5 3.4 L (3.5-5.7) g/dL Consult Discharge Plan - Plan Referrals: Nurys Antunez MD [Primary Care Provider] -
--- NOTE | 2019-04-09 11:50 | Internal Med Progress Note ---
Hospitalist Progress Note - Encounter Date of Encounter: 04/09/19 Time of Encounter: 11:50 - Subjective Interval History: Feeling better abdominal pain but is still there. Denies hematemesis melena or hematochezia. Review the lab is stable hemoglobin. Reviewed the travel consultant note. At present patient nothing by mouth Denies fever chills nausea vomiting headache dizziness chest pain short of breath diarrhea - Exam Vitals: Temp Pulse Resp BP Pulse Ox 97.5 F L 56 16 123/63 95 04/09/19 10:06 04/09/19 10:06 04/09/19 10:06 04/09/19 10:06 04/09/19 10:06 Exam: General appearance: No acute distress, A&O X 3 Eye exam: EOMI, PERRLA ENT exam: Moist oral mucosa Neck nontender, supple Respiratory exam: Clear to auscultation bilaterally Cardiovascular exam: Regular rate and rhythm, no systolic murmur Abdominal exam: Soft, mild tenderness in lower abdomen, no rebound tenderness, no rigidity or guarding, nondistended, positive bowel sounds Extremities exam: No calf tenderness, no pedal edema Present: Skin-no rash, warm, dry, intact Neurological exam: Grossly intact - Assessment and Plan (1) Abdominal pain Current Visit: Yes Status: Acute Assessment and Plan: Pt presented to [facility] after getting abnormal lab results - has had abdominal pain in the LLQ/RLQ x 3 mos, increasing over the last few days - noticed blood in bowel movements about 2-3 weeks ago; denies anticoagulation use or recent trauma to the back - has had hx of appendectomy at [facility] with multiple complications in 2017 - does report beginning ibuprofen a few weeks ago and has been taking multiple times per day Pt not on any anticoagulation Denies recent trauma to the back, no bruising noted to the abdomen Has had colonoscopy in the past, denies personal hx or family hx of CRC EKG negative for acute ST elevation or ischemia CT abdomen at [facility]: - There is a tubular area of contrast seen in the right lower quadrant m esentery, on image 143. Its appearance raises the question of active bleeding- contrast extravasation. - Mild to moderate abdominal and pelvic ascites. Increased density is seen within the pelvic fluid inferiorly, suggesting [id number]. - Nodular appearance of the mesentery is seen, which may be related to the suspected hemorrhage - There is a nodular area of fluid seen in the right lower quadrant, in the subcutaneous fat measuring 1.9 cm x 2.2 cm.. - This appears hyperdense suggesting hemorrhage or proteinaceous debris Patient noted to be anemic, with a hemoglobin of 9.1 and normal MCV which raises the suspicion for acute GIB - no clear baseline, pt has only been here in the setting of surgery - pt was typed and crossed in the ER Concern that the patient has been actively bleeding, tamponaded, and is now bleeding again vs ?underlying cancer/bleeding mass Plan: - continue telemetry monitoring - VS assessment per nursing protocol - avoid ASA and NSAIDs - Onboard general surgeon-as is not has been hemodynamically stable with a stable H&H therefore no active surgical intervention required from general surgery and okay to advance the diet. Will monitor CBC tomorrow if any concern of bleeding or acute drop in hemoglobin then will consider bleeding scan or CT angiogram Pelvic ultrasound also ordered to evaluate possible ruptured hemorrhagic ovarian cyst based on abdominal CT report (2) Elevated troponin Current Visit: Yes Status: Acute Assessment and Plan: Troponin 0.04, likely type 2 in the setting of demand ischemia from questionable active bleed. Trending down troponin to normal. ECHO Impressions: LVEF 55%. Normal LV chamber size and overall function. Asymmetric hypertrophy of the basal septum. No LVOT obstruction. Mild left ventricular diastolic dysfunction. Normal right ventricular structure and function. Mild aortic regurgitation. Mild-moderate pulmonary hypertension. Left Ventricular Wall Motion: Rest Echo Findings The apical septal wall was hypokinetic. All other wall segments showed normal motion.. 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 She may need a stress test. No aspirin is concern of bleeding as mentioned above. Low- normal blood pressure therefore no beta lynne. Fasting lipid profile ordered. Nitroglycerin as needed. No active chest pain. (3) S/P appendectomy Current Visit: No Status: Chronic Assessment and Plan: Surgery with Dr Healy 08/2017 after she had an appendectomy was found to have gangrene and abdominal wall abscess. See above for abdominal pain. (4) Hypothyroidism Current Visit: No Status: Chronic Assessment and Plan: on synthroid, con't home meds (5) Anemia Current Visit: Yes Status: Acute Assessment and Plan: Stable hemoglobin and serial monitoring. Will monitor CBC daily. Anemia workup with iron profile, ferritin, vitamin B12 and folate level ordered. 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 Its appearance raises the question of active bleeding- contrast extravasation. - Mild to moderate abdominal and pelvic ascites. Increased density is seen within the pelvic fluid inferiorly, suggesting ycsdfgeuvr-[id number]. - Nodular appearance of the mesentery is seen, which may be related to the suspected hemorrhage - There is a nodular area of fluid seen in the right lower quadrant, in the subcutaneous fat measuring 1.9 cm x 2.2 cm.. - This appears hyperdense suggesting hemorrhage or proteinaceous debris See plan above. (7) Nausea Current Visit: Yes Status: Acute Assessment and Plan: Zofran ivp q6hr (8) Hypertension Current Visit: No Status: Chronic Assessment and Plan: on HCTZ. monitor (9) Obesity Current Visit: No Status: Chronic Assessment and Plan: BMI 37.9, chronic, counseled. (10) GERD (gastroesophageal reflux disease) Current Visit: No Status: Chronic Assessment and Plan: On famotidine at home. Will give ivp protonix for GI prophylaxis. (11) DVT prophylaxis Current Visit: Yes Status: Acute Assessment and Plan: scd in the setting of potential intra-abdominal bleed - Time Spent with Patient Total time spent is greater than 50% in coordination of care (as documented) at patient's floor/unit and/or counseling patient: 25 - 35 minutes Plan of Care Discussed with: patient Internal Medicine: Result - Labs CBC & Chem 7: 04/09/19 09:36 04/09/19 05:26 Labs: Short CBC 04/08/19 04/08/19 04/09/19 Range/Units 19:21 22:16 05:26 WBC 8.2 6.8 (4.3-11.1) K/mcL Hgb 9.1 L 9.2 L 9.2 L (11.5-15.4) g/dL Hct 29.2 L 29.6 L 30.0 L (35.3-44.9) % Plt Count 350 355 (140-400) K/mcL Neutrophils # 5.0 (1.6-8.9) K/mcL 04/09/19 Range/Units 09:36 WBC (4.3-11.1) K/mcL Hgb 10.0 L (11.5-15.4) g/dL Hct 31.9 L (35.3-44.9) % Plt Count (140-400) K/mcL Neutrophils # (1.6-8.9) K/mcL BMP 04/08/19 04/09/19 19:21 05:26 Sodium 135 L 138 Potassium 4.1 4.5 Chloride 97 L 100 Carbon Dioxide 30 H 33 H BUN 25 H 21 Creatinine 0.66 0.63 Glucose 107 H 142 H Calcium 8.6 8.9 Cardiac Enzymes 04/08/19 04/08/19 04/09/19 Range/Units 19:21 22:16 05:26 Troponin I 0.04 H* 0.04 H* 0.04 H* (< 0.04) ng/mL 04/09/19 Range/Units 09:36 Troponin I 0.03 (< 0.04) ng/mL Liver Function 04/08/19 04/09/19 Range/Units 19:21 05:26 Total Bilirubin 0.3 0.3 (0.3-1.0) mg/dL Direct Bilirubin 0.0 (0.0-0.2) mg/dL AST 11 L 11 L (13-39) Units/L ALT 6 L 6 L (7-52) Units/L Alkaline Phosphatase 48 48 (34-104) Units/L Albumin 3.5 3.4 L (3.5-5.7) g/dL Urine 04/08/19 Range/Units 19:39 Urine Color Yellow (Yellow) Urine Clarity Clear (Clear) Urine pH 6.5 (5.0-8.0) pH Units Ur Specific [place] 1.013 (1.010-1.025) Urine Protein Negative (Neg-Trace) mg/dL Urine Glucose (UA) Normal (Normal) mg/dL - ABG Interpretation ABG results: PT/INR, D-dimer PT 12.8 Seconds (9.4-12.1) H 04/08/19 19:21 - Impressions Impressions Echocardiogram 04/09/19 22:31 Impressions: LVEF 55%. Normal LV chamber size and overall function. Asymmetric hypertrophy of the basal septum. No LVOT obstruction. Mild left ventricular diastolic dysfunction. Normal right ventricular structure and function. Mild aortic regurgitation. Mild-moderate pulmonary hypertension. Left Ventricular Wall Motion: Rest Echo Findings The apical septal wall was hypokinetic. All other wall segments showed normal motion. Findings: Study Quality * Technically adequate exam. ECG Findings * Sinus bradycardia. Left Ventricle * LVEF 55%. * Normal LV chamber size and overall function. * Asymmetric hypertrophy of the basal septum. No LVOT obstruction. * Mild left ventricular diastolic dysfunction. Right Ventricle * Normal right ventricular structure and function. Left Atrium * Moderately dilated left atrium. Right Atrium * Moderately dilated right atrium. Aortic Valve * Trileaflet aortic valve. * Mildly sclerotic aortic valve leaflets. * Mild aortic regurgitation. * No aortic stenosis. Mitral Valve * Mildly thickened mitral valve leaflets. * Mild mitral annular calcification * No mitral regurgitation. * No mitral stenosis. Tricuspid Valve * Normal tricuspid valve structure and function. * Trace tricuspid regurgitation. * Mild-moderate pulmonary hypertension. Pulmonic Valve * Pulmonic valve not well visualized. Aorta * Normally sized aortic root. Pericardium * There is a trivial pericardial effusion present. IVC * Normal IVC dimensions and inspiratory collapse. Pulmonary Artery * Normal visualized portions of the main pulmonary artery. Consult Discharge Plan - Plan Referrals: Nurys Antunez MD [Primary Care Provider] - (1) Abdominal pain Qualifiers: Abdominal location: generalized Qualified Code(s): R10.84 - Generalized abdominal pain (4) Hypothyroidism Qualifiers: Hypothyroidism type: unspecified Qualified Code(s): E03.9 - Hypothyroidism, unspecified (5) Anemia Qualifiers: Anemia type: unspecified type Qualified Code(s): D64.9 - Anemia, unspecified (8) Hypertension Qualifiers: Hypertension type: essential hypertension Qualified Code(s): I10 - Essential (primary) hypertension (9) Obesity Qualifiers: Obesity type: due to excess calories Obesity classification: adult class 2 (BMI 35 - 39.9) Serious obesity comorbidity presence: without serious comorbidity Body mass index: BMI 37.0-37.9 Qualified Code(s): E66.09 - Other obesity due to excess calories; Z68.37 - Body mass index (BMI) 37.0-37.9, adult (10) GERD (gastroesophageal reflux disease) Qualifiers: Esophagitis presence: without esophagitis Qualified Code(s): K21.9 - Gastro- esophageal reflux disease without esophagitis
[2019-04-09] MEDS ORDERED: Nitroglycerin 0.4 MG TAB.SUBL SL PRN (16:43)
[2019-04-09 17:51] LABS: Folate > 22.3 ng/mL (3.0-16.0); Vitamin B12 415 pg/mL (250-1100)
[2019-04-09] MEDS ORDERED: Famotidine 20 MG TABLET PO SCH (21:00)
[2019-04-09] MEDS: Famotidine 20 MG TABLET PO SCH (22:26)
[2019-04-10 06:40] LABS: Hematocrit 29.2 % (35.3-44.9); Hemoglobin 8.9 g/dL (11.5-15.4); Mean Corpuscular HGB Conc 30.5 g/dL (31.6-35.5); Mean Corpuscular Hemoglobin 25.7 pg (28.0-33.3); Mean Corpuscular Volume 84.4 fL (83.0-100.0); Platelet Count 342 K/mcL (140-400); Red Blood Count 3.46 M/mcL (3.82-4.97); Red Cell Distribution Width 13.7 % (11.5-14.5)
[2019-04-10 06:56] LABS: Chol/HDL Ratio 5.1 (0-4.9)
[2019-04-10] MEDS: 0.9 % Sodium Chloride 1,000 ML IVC SCH (07:23)
[2019-04-10] MEDS: IODINE PLUS PO SCH (10:35)
[2019-04-10] MEDS: Ascorbic Acid 500 MG TABLET PO SCH (10:37)
[2019-04-10] MEDS: hydroCHLOROthiazide 25 MG TABLET PO SCH (10:37)
--- NOTE | 2019-04-10 12:06 | Cardiology Consult Note ---
Date of Encounter: 04/10/19 Time of Encounter: 12:02 Assessment and Plan (1) Abnormal echocardiogram Current Visit: Yes Status: Acute Echocardiogram demonstrated overall normal LV function, but a small area of apical septal hypokinesis. Given her noncardiac presentation, this appears to be a incidental finding. Serial troponin measurements are essentially negative. Given issues regarding intraperitoneal bleeding and anemia, further cardiac intervention would be inappropriate unless becomes absolutely medically necessary. Recommend continued observation from a cardiac standpoint. Outpatient follow-up recommended. Discussion w patient/family: The assessment and plan as outlined above was discussed with the patient and/or family members who expressed understanding and agreement. All questions were answered. Thank you for involving us in the care of your patient. Please call with any questions. History of Present Illness Consult date: 04/10/19 Requesting physician: Senait Goldberg Consult reason: Abnormal echocardiogram Chief complaint: Abdominal pain History of present illness: Ms. Sears is a 83 year old female presented with complaints of abdominal pain and an abnormal outpatient CT scan, which demonstrated intraperitoneal bleeding. She is currently being evaluated by surgery. Anemia noted. Minimal troponin of 0.04, otherwise negative. TTE obtained, which demonstrated overall normal LV function with apical septal hypokinesis. Patient denies chest pain or discomfort. Reports abdominal pain has improved. Past Med Surg Social Fam HX - Past Medical History Medical history: arthritis, thyroid disease Psychiatric history: no psych history - Past Surgical History Surgical History: appendectomy, knee replacement Additional surgical history: Bilateral knee replacement, - Social History Smoking Status: Former smoker Smokeless Tobacco Status: No Alcohol use: rarely Drug use: none - Family History Daughter Living Status: Hx Family Cancer: Yes (melanoma) Medications and Allergies Iodine [Kelp] 150 mcg PO DAILY 09/03/17 [History] Ascorbic Acid [Vitamin C with Mandy Hips] 500 mg PO DAILY 04/08/19 [History] Aspirin [Lo-Dose Aspirin EC] 81 mg PO DAILY 04/08/19 [History] Famotidine [Pepcid] 40 mg PO HS 04/08/19 [History] Ferrous Sulfate [Iron] 325 mg PO DAILY 04/08/19 [History] Levothyroxine [Synthroid] 75 mcg PO 0630 04/08/19 [History] [place]-3/Dha/Epa/Fish Oil [Fish Oil 1,000 mg Softgel] 1 each PO DAILY 04/08/19 [History] hydroCHLOROthiazide [Hydrochlorothiazide] 25 mg PO DAILY 04/08/19 [History] Calcium Carbonate/Vitamin D3 [Calcium 600-Vit D3 200 Tablet] 1 each PO 04/09/19 [History] Folic Acid 0.4 mg PO 04/09/19 [History] 3 Allergy/AdvReac Type Severity Reaction Status Date / Time No Known Allergies Allergy Verified 09/11/17 08:48 All Systems Review: The remainder of the systems were reviewed and are negative - Cardiovascular Cardiovascular: as per HPI Physical Examination Vital Signs, Last 4 Hours Temp Pulse Resp BP Pulse Ox 04/10/19 10:15 98.1 F 81 16 136/72 96 General: Conversant, No Apparent Distress HEENT: Atraumatic, Normocephaly, Mucus Membranes Moist Neck: No JVD, Normal carotid pulses Cardiac: Reg Rate and Rhythm, Normal S1 and S2, No Murmur Lungs: Normal Breath Sounds, No Wheeze, Rales, Rhonchi Neuro: Alert and responsive Abdomen: Soft, Other (Obese, but soft. No tenderness on examination.) Skin: No rashes noted on visualized skin Musculoskeletal: No Chest Wall Tenderness Extremities: No Clubbing, No Cyanosis, No Edema Results 04/10/19 05:20 04/09/19 05:26 Lab Results 04/10/19 05:20 WBC 7.8 Hgb 8.9 L Hct 29.2 L Plt Count 342 - Imaging and Cardiology Echo: report reviewed - EKG Interpretation EKG results cardiology: personally reviewed Consult Discharge Plan - Plan Referrals: Nurys Antunez MD [Primary Care Provider] -
--- NOTE | 2019-04-10 14:14 | Electrocardiograph Report ---
[place] [id number] Test Date: 2019-04-08 Pat Name: Krystyna Sears Department: EXAM8 Room: 3A45 Gender: F [employer] Editor: : 1935 Requested By: Jluis Escobar Order Number: [id number] Reading MD: Dexter Silveira Measurements Intervals [place] Rate: 62 P: 137 PA: 255 QRS: -20 QRSD: 100 T: 111 QT: 384 QTc: 390 Interpretive Statements Sinus rhythm Nonspecific ST-T changes Baseline artifact Electronically Signed On 04-10-2019 14:12:38 EDT by Dexter Silveira
--- NOTE | 2019-04-10 15:53 | Internal Med Progress Note ---
Hospitalist Progress Note - Encounter Date of Encounter: 04/10/19 Time of Encounter: 09:17 - Subjective Interval History: Patient sitting comfortably on bed. Daughter at bedside. Review the lab with slight trending down hemoglobin. Abdominal pain is better but is still has intermittent cramp. Denies fever chest pain short of breath nausea vomiting urinary complaint diarrhea melena hematochezia. - Exam Vitals: Temp Pulse Resp BP Pulse Ox 98.4 F 87 17 142/79 100 04/10/19 14:51 04/10/19 14:51 04/10/19 14:51 04/10/19 14:51 04/10/19 14:51 Exam: General appearance: No acute distress, A&O X 3 Eye exam: EOMI, PERRLA ENT exam: Moist oral mucosa Neck nontender, supple Respiratory exam: Clear to auscultation bilaterally Cardiovascular exam: Regular rate and rhythm, no systolic murmur Abdominal exam: Soft, mild tenderness in lower abdomen, no rebound tenderness, no rigidity or guarding, nondistended, positive bowel sounds Extremities exam: No calf tenderness, no pedal edema Present: Neurological exam: Grossly intact - Assessment and Plan (1) Abdominal pain Current Visit: Yes Status: Acute Assessment and Plan: Pt presented to [facility] after getting abnormal lab results - has had abdominal pain in the LLQ/RLQ x 3 mos, increasing over the last few days - noticed blood in bowel movements about 2-3 weeks ago; denies an ticoagulation use or recent trauma to the back - has had hx of appendectomy at [facility] with multiple complications in 2017 - does report beginning ibuprofen a few weeks ago and has been taking multiple times per day Pt not on any anticoagulation Denies recent trauma to the back, no bruising noted to the abdomen Has had colonoscopy in the past, denies personal hx or family hx of CRC EKG negative for acute ST elevation or ischemia CT abdomen at [facility]: - There is a tubular area of contrast seen in the right lower quadrant mesentery, on image 143. Its appearance raises the question of active bleeding- contrast extravasation. - Mild to moderate abdominal and pelvic ascites. Increased density is seen within the pelvic fluid inferiorly, suggesting alfunikjht-wrvnevzw-ahtkxeiyiibhsr. - Nodular appearance of the mesentery is seen, which may be related to the suspected hemorrhage - There is a nodular area of fluid seen in the right lower quadrant, in the subcutaneous fat measuring 1.9 cm x 2.2 cm.. - This appears hyperdense suggesting hemorrhage or proteinaceous debris Patient noted to be anemic, with a hemoglobin of 9.1 and normal MCV which raises the suspicion for acute GIB - no clear baseline, pt has only been here in the setting of surgery - pt was typed and crossed in the ER Concern that the patient has been actively bleeding, tamponaded, and is now bleeding again vs ?underlying cancer/bleeding mass Plan: - continue telemetry monitoring - VS assessment per nursing protocol - avoid ASA and NSAIDs - Onboard general surgeon-as pt has been hemodynamically stable with a stable H&H therefore no active surgical intervention required from general surgery and okay to advance the diet. -Slight trending down hemoglobin but no active bleeding therefore will monitor H&H every 12 hours. if any concern of bleeding or acute drop in hemoglobin then will consider bleeding scan or CT angiogram Pelvic ultrasound also ordered to evaluate possible ruptured hemorrhagic ovarian cyst based on abdominal CT report-not done yet Plan to discharge patient possibly tomorrow if hemoglobin remains a stable, tolerating oral diet and after reviewing of ultrasound (2) Elevated troponin Current Visit: Yes Status: Acute Assessment and Plan: Troponin 0.04, likely type 2 in the setting of demand ischemia from questionable active bleed. Trending down troponin to normal. ECHO Impressions: LVEF 55%. Normal LV chamber size and overall function. Asymmetric hypertrophy of the basal septum. No LVOT obstruction. Mild left ventricular diastolic dysfunction. Normal right ventricular structure and function. Mild aortic regurgitation. Mild-moderate pulmonary hypertension. Left Ventricular Wall Motion: Rest Echo Findings The apical septal wall was hypokinetic. All other wall segments showed normal motion.. Consulted cardiology -who did not advise any further cardiac workup at this time but follow outpatient. patient has been feeling fatigue low in energy tired for last couple of weeks therefore she discussed with her ?yard coordinator who advised okay to take baby aspirin more like as a prophylactic treatment but never had cardiac workup done before. She may need a stress test on OPD basis-already scheduled by her PCP. No aspirin is concern of bleeding as mentioned above. Elevated LDL -Fasting lipid profile -started low-dose statin Nitroglycerin as needed. No active chest pain. (3) Anemia Current Visit: Yes Status: Acute Assessment and Plan: slight trending down hemoglobin and serial monitoring. Will monitor CBC . Anemia workup with iron profile, ferritin, vitamin B12 and folate level - reviewed. SCDs for DVT prophylaxis Does have hx of IDH per the patient (4) S/P appendectomy Current Visit: No Status: Chronic Assessment and Plan: Surgery with Dr Healy 08/2017 after she had an appendectomy was found to have gangrene and abdominal wall abscess. (5) Hypothyroidism Current Visit: No Status: Chronic Assessment and Plan: on synthroid, con't home meds (6) Abnormal CT scan Current Visit: Yes Status: Acute Assessment and Plan: CT abdomen at [facility]: - There is a tubular area of contrast seen in the right lower quadrant mesentery, on image 143. Its appearance raises the question of active bleeding-contrast extravasation. - Mild to moderate abdominal and pelvic ascites. Increased density is seen within the pelvic fluid inferiorly, suggesting ngdibdgcqk-aidgaihu-kegwqinhsnnsgo. - Nodular appearance of the mesentery is seen, which may be related to the s uspected hemorrhage - There is a nodular area of fluid seen in the right lower quadrant, in the subcutaneous fat measuring 1.9 cm x 2.2 cm.. - This appears hyperdense suggesting hemorrhage or proteinaceous debris See plan above. (7) Hypertension Current Visit: No Status: Chronic Assessment and Plan: on HCTZ. monitor (8) Obesity Current Visit: No Status: Chronic Assessment and Plan: BMI 37.9, chronic, counseled. (9) GERD (gastroesophageal reflux disease) Current Visit: No Status: Chronic Assessment and Plan: On famotidine at home. continue protonix (10) DVT prophylaxis Current Visit: Yes Status: Acute Assessment and Plan: scd in the setting of potential intra-abdominal bleed - Time Spent with Patient Total time spent is greater than 50% in coordination of care (as documented) at patient's floor/unit and/or counseling patient: 25 - 35 minutes Internal Medicine: Result - Labs CBC & Chem 7: 04/10/19 05:20 04/09/19 05:26 Labs: Short CBC 04/10/19 Range/Units 05:20 WBC 7.8 (4.3-11.1) K/mcL Hgb 8.9 L (11.5-15.4) g/dL Hct 29.2 L (35.3-44.9) % Plt Count 342 (140-400) K/mcL - ABG Interpretation ABG results: PT/INR, D-dimer PT 12.8 Seconds (9.4-12.1) H 04/08/19 19:21 Consult Discharge Plan - Plan Referrals: Nurys Antunez MD [Primary Care Provider] - (1) Abdominal pain Qualifiers: Abdominal location: generalized Qualified Code(s): R10.84 - Generalized abdominal pain (3) Anemia Qualifiers: Anemia type: unspecified type Qualified Code(s): D64.9 - Anemia, unspecified (5) Hypothyroidism Qualifiers: Hypothyroidism type: unspecified Qualified Code(s): E03.9 - Hypothyroidism, unspecified (7) Hypertension Qualifiers: Hypertension type: essential hypertension Qualified Code(s): I10 - Essential (primary) hypertension (8) Obesity Qualifiers: Obesity type: due to excess calories Obesity classification: adult class 2 (BMI 35 - 39.9) Serious obesity comorbidity presence: without serious comorbidity Body mass index: BMI 37.0-37.9 Qualified Code(s): E66.09 - Other obesity due to excess calories; Z68.37 - Body mass index (BMI) 37.0-37.9, adult (9) GERD (gastroesophageal reflux disease) Qualifiers: Esophagitis presence: without esophagitis Qualified Code(s): K21.9 - Gastro- esophageal reflux disease without esophagitis
[2019-04-10 16:40] LABS: Hematocrit 29.7 % (35.3-44.9); Hemoglobin 9.3 g/dL (11.5-15.4)
[2019-04-10] MEDS: Famotidine 20 MG TABLET PO SCH (22:06)
[2019-04-11] MEDS: IODINE PLUS PO SCH (05:50)
[2019-04-11 07:04] LABS: Hematocrit 30.7 % (35.3-44.9); Hemoglobin 9.7 g/dL (11.5-15.4); Mean Corpuscular HGB Conc 31.6 g/dL (31.6-35.5); Mean Corpuscular Hemoglobin 26.2 pg (28.0-33.3); Mean Platelet Volume 9.6 fL (9.4-12.4); Platelet Count 337 K/mcL (140-400); Red Cell Distribution Width 13.8 % (11.5-14.5)
[2019-04-11] MEDS: hydroCHLOROthiazide 25 MG TABLET PO SCH (08:59)
[2019-04-11] MEDS: Ascorbic Acid 500 MG TABLET PO SCH (08:59)
[2019-04-11 14:12] VITALS: BP 115/52
--- NOTE | 2019-04-11 15:57 | Discharge Summary ---
- NOTES TO OUTPATIENT PROVIDER Notes to Outpatient Provider: Follow with PCP in 3-5 days-need pelvic ultrasound to possible evaluate hemorrhagic ovarian cyst. Hold aspirin until that cleared by her cardiology. Keep follow-up appointment with cardiology in 1 week-May need outpatient stress test as already scheduled Orders not resulted at time of discharge: Pending orders 04/11/19 16:00 Hemoglobin and Hematocrit [HEME] Q12H Date of Encounter: 04/11/19 Time of Encounter: 15:54 - Discharge Diagnosis (1) Abdominal pain Priority: Primary Status: Acute Assessment and Plan: Improving. Is stable. Consulted general surgeon who advised to monitor and manage conservatively. Her hemoglobin has been a stable with no active bleeding therefore general surgeon okay to discharge from surgery standpoint with follow-up PCP. Also advised to hold aspirin until get cleared by PCP or her cardiology. Pelvic ultrasound was ordered but did not happen due to weekend and patient really want to go home therefore I discuss with general surgeon who is okay to discharge patient home with outpatient evaluation as patient is clinically stable. Pt presented to [facility] after getting abnormal lab results - has had abdominal pain in the LLQ/RLQ x 3 mos, increasing over the last few days - noticed blood in bowel movements about 2-3 weeks ago; denies anticoagulation use or recent trauma to the back - has had hx of appendectomy at [facility] with multiple complications in 2017 - does report beginning ibuprofen a few weeks ago and has been taking multiple times per day CT abdomen at [facility]: - There is a tubular area of contrast seen in the right lower quadrant mesentery, on image 143. Its appearance raises the question of active bleeding- contrast extravasation. - Mild to moderate abdominal and pelvic ascites. Increased density is seen within the pelvic fluid inferiorly, suggesting fcwulrfyca-ldiecggg-ytdiealartzopy. - Nodular appearance of the mesentery is seen, which may be related to the suspected hemorrhage - There is a nodular area of fluid seen in the right lower quadrant, in the subcutaneous fat measuring 1.9 cm x 2.2 cm.. - This appears hyperdense suggesting hemorrhage or proteinaceous debris Qualifiers: Abdominal location: generalized Qualified Code(s): R10.84 - Generalized abdominal pain (2) Elevated troponin Priority: Primary Status: Acute Assessment and Plan: Troponin 0.04, likely type 2 in the setting of demand ischemia Trending down troponin to normal. Consulted cardiology -who did not advise any further cardiac workup at this time but follow outpatient. he may need a stress test on OPD basis-already scheduled by her PCP. No aspirin is concern of bleeding as mentioned above. Elevated LDL -Fasting lipid profile -started low-dose statin Nitroglycerin as needed. No active chest pain. ECHO Impressions: LVEF 55%. Normal LV chamber size and overall function. Asymmetric hypertrophy of the basal septum. No LVOT obstruction. Mild left ventricular diastolic dysfunction. Normal right ventricular structure and function. Mild aortic regurgitation. Mild-moderate pulmonary hypertension. Left Ventricular Wall Motion: Rest Echo Findings The apical septal wall was hypokinetic. All other wall segments showed normal motion.. (3) Anemia Priority: Primary Status: Acute Assessment and Plan: Stable hemoglobin on serial monitoring. Qualifiers: Anemia type: unspecified type Qualified Code(s): D64.9 - Anemia, unspecified (4) S/P appendectomy Priority: Secondary Status: Chronic Assessment and Plan: Surgery with Dr Healy 08/2017 after she had an appendectomy was found to have gangrene and abdominal wall abscess. (5) Hypothyroidism Priority: Secondary Status: Chronic Assessment and Plan: on synthroid, con't home meds Qualifiers: Hypothyroidism type: unspecified Qualified Code(s): E03.9 - Hypothyroidism, unspecified (6) Hypertension Priority: Secondary Status: Chronic Assessment and Plan: on HCTZ. monitor Qualifiers: Hypertension type: essential hypertension Qualified Code(s): I10 - Essential (primary) hypertension (7) Obesity Priority: Secondary Status: Chronic Assessment and Plan: BMI 37.9, chronic, counseled. Qualifiers: Obesity type: due to excess calories Obesity classification: adult class 2 (BMI 35 - 39.9) Serious obesity comorbidity presence: without serious comorbidity Body mass index: BMI 37.0-37.9 Qualified Code(s): E66.09 - Other obesity due to excess calories; Z68.37 - Body mass index (BMI) 37.0-37.9, adult (8) GERD (gastroesophageal reflux disease) Priority: Secondary Status: Chronic Assessment and Plan: On famotidine at home. Qualifiers: Esophagitis presence: without esophagitis Qualified Code(s): K21.9 - Gastro-esophageal reflux disease without esophagitis Hospital course: Ms. Sears is a 83 year old female patient was transferred from another hospital with concern of abdominal bleed on CT scan. General surgeon was consulted. Please see detail in diagnosis section of discharge summary. At the time of discharge patient clinically hemodynamically stable with stable hemoglobin, tolerating oral diet and ambulating well. Abdominal pain is better. Discharge discussed with: patient, family, nurse, wardrobe consultant - Time Spent with Patient Total time spent providing and/or coordinating discharge services: Time spent: Less than 30 minutes - Discharge Medications Prescriptions: No Action Iodine [Kelp] 150 mcg PO DAILY Ascorbic Acid [Vitamin C with Mandy Hips] 500 mg PO DAILY Aspirin [Lo-Dose Aspirin EC] 81 mg PO DAILY Famotidine [Pepcid] 40 mg PO HS Ferrous Sulfate [Iron] 325 mg PO DAILY hydroCHLOROthiazide [Hydrochlorothiazide] 25 mg PO DAILY Levothyroxine [Synthroid] 75 mcg PO 0630 Enterprise-3/Dha/Epa/Fish Oil [Fish Oil 1,000 mg Softgel] 1 each PO DAILY Folic Acid 0.4 mg PO Calcium Carbonate/Vitamin D3 [Calcium 600-Vit D3 200 Tablet] 1 each PO Home Medications: Iodine [Kelp] 150 mcg PO DAILY 09/03/17 [History] Ascorbic Acid [Vitamin C with Mandy Hips] 500 mg PO DAILY 04/08/19 [History] Aspirin [Lo-Dose Aspirin EC] 81 mg PO DAILY 04/08/19 [History] Famotidine [Pepcid] 40 mg PO HS 04/08/19 [History] Ferrous Sulfate [Iron] 325 mg PO DAILY 04/08/19 [History] Levothyroxine [Synthroid] 75 mcg PO 0630 04/08/19 [History] Enterprise-3/Dha/Epa/Fish Oil [Fish Oil 1,000 mg Softgel] 1 each PO DAILY 04/08/19 [History] hydroCHLOROthiazide [Hydrochlorothiazide] 25 mg PO DAILY 04/08/19 [History] Calcium Carbonate/Vitamin D3 [Calcium 600-Vit D3 200 Tablet] 1 each PO 04/09/19 [History] Folic Acid 0.4 mg PO 04/09/19 [History] Allergies/Adverse Reactions: Allergy/AdvReac Type Severity Reaction Status Date / Time No Known Allergies Allergy Verified 09/11/17 08:48 Date of admission: 04/08/19 21:47 Primary care physician: Nurys Antunez MD Consults: 04/08/19 21:31 Consult to Surgery [CONS] Routine Consulting Provider: Acute Care Surgery Reason for Consult: abnormal CT, ?intraabd bleed, dr patel spoke to er resident Call Completed: Yes 04/08/19 23:27 Consult to Physical Therapy [CONS] Routine Comment: Evaluate, develop and implement POC Reason for Consult: ptot eval Does patient have active BEDREST order?: No Is patient medically & hemodynamically stable?: Yes Patient assessed for mobility or mobilized this visit?: No - Constitutional Vitals: Temp Pulse Resp BP Pulse Ox 97.5 F L 82 16 115/52 95 04/11/19 14:07 04/11/19 14:07 04/11/19 14:07 04/11/19 14:07 04/11/19 14:07 General appearance: Present: cooperative, A&O X 3, pleasant Exam: General appearance: No acute distress, Eye exam: EOMI, PERRLA ENT exam: Moist oral mucosa Neck nontender, supple Respiratory exam: Clear to auscultation bilaterally Cardiovascular exam: Regular rate and rhythm, no systolic murmur Abdominal exam: Soft, minimal tenderness- better, nondistended, positive bowel sounds Extremities exam: No calf tenderness, no pedal edema Present: Neurological exam: Alert, awake, oriented 3, CN II-XII intact, no focal deficits. - Patient Status Disposition: Home, Self-Care Condition: Good Overall status at discharge: patient is progressing back to baseline - Discharge Instructions Follow Up With: Nurys Antunez MD [Primary Care Provider] - - Diet and Activity Activity: increase activity as tolerated Diet: advance to your usual diet, low fat, low cholesterol, low salt diet
== END 2019-04-11 16:57 | disposition home or self-care (01) ==
LOC: 3ANU 19:06 → EMEROOARM 19:06 → 3ANU 22:21
PROVIDERS: ADMIT Pediatrics; ATTEND Pediatrics

== ENCOUNTER 2020-06-01 14:34 | Observation (INO) ==
[2020-06-01] MEDS ORDERED: Naloxone 0.4 MG/ML INJ IVP PRN (17:32)
[2020-06-01] MEDS ORDERED: Ondansetron 4 MG/2 ML VIAL IVP PRN (17:32)
[2020-06-01] MEDS ORDERED: *HR* Heparin 5,000 UNIT/ML VIAL IVP PRN ×2 (17:51)
[2020-06-01] MEDS ORDERED: *HR* Heparin 5,000 UNIT/ML VIAL IVP ONE (17:51)
[2020-06-01] MEDS ORDERED: Perflutren Lipid Microsphere 1.3 ML in 0.9 % Sodium Chloride 8.7 ML IVP ONE (17:52)
[2020-06-01] MEDS ORDERED: Ondansetron ODT 4 MG TAB.RAPDIS SL PRN (18:02)
[2020-06-01 18:16] LABS: Mean Corpuscular HGB Conc 32.4 g/dL (31.6-35.5); Mean Corpuscular Hemoglobin 30.3 pg (28.0-33.3); Mean Corpuscular Volume 93.7 fL (83.0-100.0); Platelet Count 201 K/mcL (140-400); Red Blood Count 3.63 M/mcL (3.82-4.97); Red Cell Distribution Width 11.5 % (11.5-14.5); White Blood Count 4.7 K/mcL (4.3-11.1)
[2020-06-01 18:25] LABS: Prothrombin Time 11.8 Seconds (9.4-12.1)
[2020-06-01 18:38] LABS: Phosphorous 4.2 mg/dL (2.7-4.5)
[2020-06-01 18:40] LABS: Heparin anti-factor XA UFH 0.09 IU/mL (0.30-0.70)
[2020-06-01] MEDS: Ondansetron ODT 4 MG TAB.RAPDIS SL PRN (18:41)
[2020-06-01] MEDS: NIRAPARIB PO SCH (18:43)
[2020-06-01 18:48] LABS: Troponin I 0.05 ng/mL (< 0.04)
[2020-06-01] MEDS: Ringers Solution, Lactated 1,000 ML IVC SCH (18:48)
[2020-06-01 19:05] LABS: Folate > 22.3 ng/mL (3.0-16.0); Vitamin B12 369 pg/mL (250-1100)
[2020-06-01] MEDS: Heparin 25,000 UNIT/250 ML D5W 25,000 UNIT/250 ML IV.SOLN IVC SCH (19:19)
[2020-06-01] MEDS: Ascorbic Acid 500 MG TABLET PO SCH (21:33)
[2020-06-01] MEDS ORDERED: polyethylene glycoL 3350 17 GM POWD.PACK PO PRN (22:25)
[2020-06-02] MEDS: Ringers Solution, Lactated 1,000 ML IVC SCH ×3 (08:37→19:44)
[2020-06-02] MEDS: IODINE PO SCH (08:41)
[2020-06-02] MEDS ORDERED: Aspirin Enteric Coated 81 MG Tablet PO SCH (09:00)
[2020-06-02] MEDS ORDERED: Cholecalciferol (D-3) 1,000 UNIT (25MCG) TABLET PO SCH ×2 (09:00→18:00)
[2020-06-02] MEDS ORDERED: NIRAPARIB PO SCH ×2 (09:00→14:00)
[2020-06-02] MEDS ORDERED: Cyanocobalamin (B-12) 1,000 MCG TABLET PO SCH ×2 (09:00→13:00)
[2020-06-02] MEDS ORDERED: Furosemide 20 MG TABLET PO SCH (09:00)
[2020-06-02] MEDS ORDERED: ZEJULA PO SCH (09:00)
[2020-06-02 09:39] LABS: Basophils % 0.7 %; Eosinophils # 0.1 K/mcL (0.0-0.6); Hematocrit 36.2 % (35.3-44.9); Hemoglobin 11.7 g/dL (11.5-15.4); Immature Granulocytes % 0.2 % (0-4); Lymphocytes # 1.4 K/mcL (0.6-4.6); Lymphocytes % 32.3 %; Mean Corpuscular HGB Conc 32.3 g/dL (31.6-35.5); Mean Corpuscular Hemoglobin 30.4 pg (28.0-33.3); Mean Platelet Volume 9.1 fL (9.4-12.4); Monocytes # 0.4 K/mcL (0.0-1.3); Monocytes % 8.2 %; Neutrophils # 2.5 K/mcL (1.6-8.9); Platelet Count 204 K/mcL (140-400); Red Blood Count 3.85 M/mcL (3.82-4.97); Red Cell Distribution Width 11.6 % (11.5-14.5); Segmented Neutrophils % 55.6 %; White Blood Count 4.4 K/mcL (4.3-11.1)
[2020-06-02 10:02] LABS: Calcium 9.9 mg/dL (8.6-10.3); Chol/HDL Ratio 4.8 (0-4.9); Magnesium 1.9 mg/dL (1.6-2.6); Phosphorous 3.9 mg/dL (2.7-4.5); Potassium 4.3 mEq/L (3.5-5.1); Troponin I 0.05 ng/mL (< 0.04)
[2020-06-02] MEDS: Folic Acid 1 MG TABLET PO SCH (11:23)
[2020-06-02] MEDS: Ascorbic Acid 500 MG TABLET PO SCH (11:40)
[2020-06-02] MEDS: amLODIPine 5 MG TABLET PO SCH (11:44)
[2020-06-02] MEDS: Ondansetron ODT 4 MG TAB.RAPDIS SL PRN (12:16)
[2020-06-02 12:20] LABS: Bilirubin,Urine Negative (Negative); Blood,Urine Negative (Negative); Clarity,Urine Clear (Clear); Color,Urine Light-Yellow (Yellow); Glucose,Urine (UA) Normal (Normal); Ketones,Urine Negative (Negative); Leukocyte Esterase,Urine Negative (Negative); Nitrite,Urine Negative (Negative); Protein,Urine Negative (Neg-Trace); Specific Gravity,Urine 1.011 (1.010-1.025); Urobilinogen,Urine Normal (Normal)
[2020-06-02 12:23] LABS: Sodium, Urine 72.4 mEq/L
[2020-06-02] MEDS: NIRAPARIB PO SCH (12:23)
[2020-06-02] MEDS: Heparin 25,000 UNIT/250 ML D5W 25,000 UNIT/250 ML IV.SOLN IVC SCH (18:36)
[2020-06-02] MEDS ORDERED: Ascorbic Acid 500 MG TABLET PO SCH (21:00)
[2020-06-02] MEDS ORDERED: Ondansetron 4 MG/2 ML VIAL IVP PRN (21:27)
[2020-06-03 05:30] LABS: Hematocrit 31.4 % (35.3-44.9); Hemoglobin 10.2 g/dL (11.5-15.4); Mean Corpuscular HGB Conc 32.5 g/dL (31.6-35.5); Mean Corpuscular Hemoglobin 30.4 pg (28.0-33.3); Mean Corpuscular Volume 93.5 fL (83.0-100.0); Mean Platelet Volume 9.2 fL (9.4-12.4); Platelet Count 163 K/mcL (140-400); Red Blood Count 3.36 M/mcL (3.82-4.97); Red Cell Distribution Width 11.8 % (11.5-14.5); White Blood Count 4.2 K/mcL (4.3-11.1)
[2020-06-03 05:49] LABS: Albumin 3.8 g/dL (3.5-5.7); Albumin/Globulin Ratio 1.6 (1.1-2.2); Bilirubin,Total 0.4 mg/dL (0.3-1.0); Calcium 9.6 mg/dL (8.6-10.3); Globulin 2.4 g/dL (2.4-3.5); Potassium 4.2 mEq/L (3.5-5.1); Total Protein 6.2 g/dL (6.4-8.9)
[2020-06-03 06:30] VITALS: BP 146/91
[2020-06-03] MEDS: IODINE PO SCH (08:37)
[2020-06-03] MEDS: amLODIPine 5 MG TABLET PO SCH (08:37)
[2020-06-03] MEDS: Folic Acid 1 MG TABLET PO SCH (08:37)
== END 2020-06-03 09:59 | disposition home or self-care (01) ==
LOC: 3BNU → SUATTDRO 17:09
PROVIDERS: ADMIT Internal Medicine; ATTEND Family Medicine

== ENCOUNTER 2020-06-29 10:49 | Inpatient (IN) ==
[2020-06-29] MEDS ORDERED: 0.9 % Sodium Chloride 1,000 ML IVC STA (11:51)
[2020-06-29] MEDS ORDERED: Ondansetron 4 MG/2 ML VIAL IVP STA (11:51)
[2020-06-29 12:46] LABS: Basophils % 0.6 %; Immature Granulocytes % 0.4 % (0-4)
[2020-06-29 12:48] LABS: Eosinophils % 0.8 %; Hematocrit 22.4 % (35.3-44.9); Hemoglobin 7.6 g/dL (11.5-15.4); Immature Platelets 4.6 % (1.1-6.1); Lymphocytes # 1.4 K/mcL (0.6-4.6); Lymphocytes % 29.9 %; Mean Corpuscular HGB Conc 33.9 g/dL (31.6-35.5); Mean Corpuscular Hemoglobin 29.6 pg (28.0-33.3); Mean Corpuscular Volume 87.2 fL (83.0-100.0); Mean Platelet Volume 10.5 fL (9.4-12.4); Monocytes # 0.4 K/mcL (0.0-1.3); Monocytes % 7.9 %; Neutrophils # 2.9 K/mcL (1.6-8.9); Red Blood Count 2.57 M/mcL (3.82-4.97); Red Cell Distribution Width 11.9 % (11.5-14.5); Segmented Neutrophils % 60.4 %; White Blood Count 4.8 K/mcL (4.3-11.1)
[2020-06-29 12:49] LABS: Platelet Count 60 K/mcL (140-400)
[2020-06-29 13:08] LABS: Albumin/Globulin Ratio 1.5 (1.1-2.2); Bilirubin,Direct 0.1 mg/dL (0.0-0.2); Bilirubin,Indirect 0.3 mg/dL (0.0-1.0); Bilirubin,Total 0.4 mg/dL (0.3-1.0); Calcium 8.4 mg/dL (8.6-10.3); Globulin 2.7 g/dL (2.4-3.5); Potassium 4.8 mEq/L (3.5-5.1); Total Protein 6.7 g/dL (6.4-8.9); Troponin I 0.08 ng/mL (< 0.04)
[2020-06-29 13:43] LABS: Amorphous Sediment,Urine Few per hpf (None-Few); Bilirubin,Urine Negative (Negative); Blood,Urine Small (Negative); Clarity,Urine Clear (Clear); Color,Urine Light-Yellow (Yellow); Glucose,Urine (UA) Normal (Normal); Ketones,Urine Negative (Negative); Leukocyte Esterase,Urine Trace (Negative); Nitrite,Urine Negative (Negative); Protein,Urine Negative (Neg-Trace); RBC,Urine 0-3 per hpf (0-3); Specific Gravity,Urine 1.011 (1.010-1.025); Squamous Epithelial Cell,Urine Few per hpf (None-Few); Urobilinogen,Urine Normal (Normal); WBC,Urine 0-3 per hpf (0-3)
[2020-06-29 14:06] LABS: Prothrombin Time 11.8 Seconds (9.4-12.1)
[2020-06-29] MEDS ORDERED: *HR* FentaNYL (PF) 100 MCG/2 ML VIAL IVP ONE (14:15)
[2020-06-29] MEDS ORDERED: *HR* Midazolam HCl 2 MG/2 ML VIAL IVP ONE (14:16)
[2020-06-29] MEDS ORDERED: *HR* FentaNYL (PF) 100 MCG/2 ML VIAL ONE (14:26)
[2020-06-29] MEDS ORDERED: *HR* Midazolam HCl 2 MG/2 ML VIAL ONE (14:26)
[2020-06-29] MEDS ORDERED: Naloxone 0.4 MG/ML INJ IVP PRN (14:29)
[2020-06-29] MEDS ORDERED: Ondansetron 4 MG/2 ML VIAL IVP PRN (14:29)
[2020-06-29] MEDS ORDERED: 0.9 % Sodium Chloride 250 ML IVC SCH (17:45)
[2020-06-29] MEDS: *HR* Heparin 5,000 UNIT/ML VIAL SQ SCH (18:35)
[2020-06-29] MEDS: 0.9 % Sodium Chloride 1,000 ML IVC SCH (18:36)
[2020-06-29] MEDS ORDERED: Sennosides/Docusate Sodium TABLET PO PRN (18:39)
[2020-06-30 00:42] LABS: Hematocrit 25.4 % (35.3-44.9); Hemoglobin 8.5 g/dL (11.5-15.4); Mean Corpuscular HGB Conc 33.5 g/dL (31.6-35.5); Red Cell Distribution Width 11.9 % (11.5-14.5)
[2020-06-30 00:44] LABS: Immature Platelets 4.7 % (1.1-6.1); Mean Corpuscular Hemoglobin 29.4 pg (28.0-33.3); Mean Corpuscular Volume 87.9 fL (83.0-100.0); Mean Platelet Volume 10.5 fL (9.4-12.4); Red Blood Count 2.89 M/mcL (3.82-4.97); White Blood Count 4.4 K/mcL (4.3-11.1)
[2020-06-30 00:53] LABS: Albumin 3.9 g/dL (3.5-5.7); Magnesium 2.2 mg/dL (1.6-2.6); Phosphorous 6.1 mg/dL (2.7-4.5)
[2020-06-30 00:56] LABS: Calcium 8.5 mg/dL (8.6-10.3); Potassium 4.4 mEq/L (3.5-5.1)
[2020-06-30] MEDS ORDERED: Metoclopramide 10 MG/2 ML VIAL IVP ONE (01:18)
[2020-06-30 01:28] LABS: Hemoglobin 8.5 g/dL (11.5-15.4)
[2020-06-30] MEDS: *HR* Heparin 5,000 UNIT/ML VIAL SQ SCH ×2 (05:16→17:51)
[2020-06-30] MEDS ORDERED: Ondansetron 4 MG/2 ML VIAL IVP PRN (06:04)
[2020-06-30] MEDS ORDERED: amLODIPine 5 MG TABLET PO SCH (09:00)
[2020-06-30] MEDS: 0.9 % Sodium Chloride 1,000 ML IVC SCH ×2 (10:11→23:12)
[2020-06-30] MEDS: Prochlorperazine 10 MG/2 ML VIAL IVP PRN (10:13)
[2020-06-30] MEDS: Folic Acid 1 MG TABLET PO SCH (11:15)
[2020-06-30] MEDS: Ascorbic Acid 500 MG TABLET PO SCH (11:15)
[2020-06-30] MEDS: NIRAPARIB PO SCH (17:52)
[2020-06-30] MEDS ORDERED: Lactulose Oral Soln 20 GM/30 ML UDC PO PRN (17:56)
[2020-06-30] MEDS: amLODIPine 5 MG TABLET PO SCH (18:24)
[2020-07-01 04:09] LABS: Hematocrit 25.6 % (35.3-44.9); Hemoglobin 8.8 g/dL (11.5-15.4); Mean Corpuscular HGB Conc 34.4 g/dL (31.6-35.5); Mean Corpuscular Hemoglobin 30.6 pg (28.0-33.3); Mean Corpuscular Volume 88.9 fL (83.0-100.0); Mean Platelet Volume 10.1 fL (9.4-12.4); Platelet Count 51 K/mcL (140-400); Red Blood Count 2.88 M/mcL (3.82-4.97)
[2020-07-01 04:31] LABS: Calcium 8.1 mg/dL (8.6-10.3); Potassium 3.8 mEq/L (3.5-5.1)
[2020-07-01] MEDS: *HR* Heparin 5,000 UNIT/ML VIAL SQ SCH (05:31)
[2020-07-01] MEDS: Ascorbic Acid 500 MG TABLET PO SCH (09:26)
[2020-07-01] MEDS: Folic Acid 1 MG TABLET PO SCH (09:27)
[2020-07-01] MEDS: amLODIPine 5 MG TABLET PO SCH ×2 (09:27→16:58)
[2020-07-01] MEDS: NIRAPARIB PO SCH ×2 (09:28→14:03)
[2020-07-01] MEDS: Prochlorperazine 10 MG/2 ML VIAL IVP PRN (13:32)
[2020-07-01] MEDS: 0.9 % Sodium Chloride 1,000 ML IVC SCH (13:32)
[2020-07-02] MEDS: 0.9 % Sodium Chloride 1,000 ML IVC SCH (02:59)
[2020-07-02 05:00] LABS: Basophils % 0.6 %; Eosinophils % 1.7 %; Hemoglobin 8.3 g/dL (11.5-15.4); Immature Granulocytes % 0.3 % (0-4)
[2020-07-02 05:03] LABS: Eosinophils # 0.1 K/mcL (0.0-0.6); Hematocrit 25.3 % (35.3-44.9); Lymphocytes # 0.9 K/mcL (0.6-4.6); Lymphocytes % 26.4 %; Mean Corpuscular HGB Conc 32.8 g/dL (31.6-35.5); Mean Corpuscular Hemoglobin 29.3 pg (28.0-33.3); Mean Corpuscular Volume 89.4 fL (83.0-100.0); Mean Platelet Volume 9.8 fL (9.4-12.4); Monocytes # 0.3 K/mcL (0.0-1.3); Monocytes % 8.2 %; Neutrophils # 2.2 K/mcL (1.6-8.9); Red Blood Count 2.83 M/mcL (3.82-4.97); Segmented Neutrophils % 62.8 %; White Blood Count 3.5 K/mcL (4.3-11.1)
[2020-07-02 05:07] LABS: Platelet Count 59 K/mcL (140-400)
[2020-07-02 05:19] LABS: Calcium 7.8 mg/dL (8.6-10.3); Potassium 3.6 mEq/L (3.5-5.1)
[2020-07-02] MEDS: Folic Acid 1 MG TABLET PO SCH (09:49)
[2020-07-02] MEDS: Ascorbic Acid 500 MG TABLET PO SCH (09:49)
[2020-07-02] MEDS: amLODIPine 5 MG TABLET PO SCH (09:49)
[2020-07-02 11:19] VITALS: BP 135/69
[2020-07-02] MEDS ORDERED: Ondansetron ODT 4 MG TAB.RAPDIS SL PRN (13:46)
[2020-07-02] MEDS: NIRAPARIB PO SCH (13:54)
== END 2020-07-02 15:56 | disposition home health service (06) | DRG 698 ==
LOC: EMEROOARM 10:49 → SUATTDRO 14:05 → 2ANU 14:05
PROVIDERS: ADMIT Family Medicine; ATTEND Internal Medicine

== ENCOUNTER 2020-07-11 13:08 | Observation (INO) ==
[2020-07-11] MEDS ORDERED: 0.9 % Sodium Chloride 1,000 ML IVC ONE (13:36)
[2020-07-11] MEDS ORDERED: Ondansetron 4 MG/2 ML VIAL IVP ONE (13:36)
[2020-07-11] MEDS ORDERED: cefTRIAXone 1,000 MG in Water for inj. (sterile) 10 ML IVP ONE (13:38)
[2020-07-11 13:58] LABS: Basophils % 0.4 %; Eosinophils % 0.6 %; Hematocrit 22.6 % (35.3-44.9); Hemoglobin 7.5 g/dL (11.5-15.4); Immature Granulocytes % 0.6 % (0-4); Lymphocytes # 0.7 K/mcL (0.6-4.6); Lymphocytes % 9.8 %; Mean Corpuscular HGB Conc 33.2 g/dL (31.6-35.5); Mean Corpuscular Hemoglobin 29.3 pg (28.0-33.3); Mean Corpuscular Volume 88.3 fL (83.0-100.0); Mean Platelet Volume 10.3 fL (9.4-12.4); Monocytes # 0.5 K/mcL (0.0-1.3); Monocytes % 7.5 %; Platelet Count 124 K/mcL (140-400); Red Blood Count 2.56 M/mcL (3.82-4.97); Red Cell Distribution Width 12.2 % (11.5-14.5); Segmented Neutrophils % 81.1 %; White Blood Count 7.2 K/mcL (4.3-11.1)
[2020-07-11 14:06] LABS: Albumin 3.9 g/dL (3.5-5.7); Albumin/Globulin Ratio 1.3 (1.1-2.2); Bilirubin,Total 0.6 mg/dL (0.3-1.0); Calcium 9.2 mg/dL (8.6-10.3); Globulin 2.9 g/dL (2.4-3.5); Potassium 3.4 mEq/L (3.5-5.1); Total Protein 6.8 g/dL (6.4-8.9)
[2020-07-11 14:12] LABS: Neutrophils # 5.8 K/mcL (1.6-8.9)
[2020-07-11 14:14] LABS: Troponin I 0.07 ng/mL (< 0.04)
[2020-07-11] MEDS ORDERED: 0.9 % Sodium Chloride 250 ML ONE (16:03)
[2020-07-11 16:24] LABS: Bacteria,Urine Few per hpf (None-Few); Bilirubin,Urine Negative (Negative); Blood,Urine Moderate (Negative); Clarity,Urine Ex.Turbid (Clear); Color,Urine Yellow (Yellow); Glucose,Urine (UA) Normal (Normal); Ketones,Urine 20 mg/dL (Negative); Leukocyte Esterase,Urine Large (Negative); Nitrite,Urine Negative (Negative); Protein,Urine 100 mg/dL (Neg-Trace); RBC,Urine 50-100 per hpf (0-3); Specific Gravity,Urine 1.013 (1.010-1.025); Squamous Epithelial Cell,Urine Few per hpf (None-Few); Urobilinogen,Urine Normal (Normal); WBC,Urine TNTC per hpf (0-3)
[2020-07-11 16:36] LABS: Magnesium 1.5 mg/dL (1.6-2.6)
[2020-07-11] MEDS ORDERED: Naloxone 0.4 MG/ML INJ IVP PRN (16:46)
[2020-07-11 18:54] LABS: Adenovirus Not Detected (Not Detect); Bordetella Pertussis Not Detected (Not Detect); Chlamydophila pneumoniae Not Detected (Not Detect); Coronavirus 229E Not Detected (Not Detect); Coronavirus HKU1 Not Detected (Not Detect); Coronavirus NL63 Not Detected (Not Detect); Coronavirus OC43 Not Detected (Not Detect); Human Metapneumovirus Not Detected (Not Detect); Human Rhinovirus/Enterovirus Not Detected (Not Detect); Influenza A Subtype 2009 H1 Not Detected (Not Detect); Influenza B Not Detected (Not Detect); Mycoplasma pneumoniae Not Detected (Not Detect); Parainfluenza Virus 1 Not Detected (Not Detect); Parainfluenza Virus 2 Not Detected (Not Detect); Parainfluenza Virus 3 Not Detected (Not Detect); Parainfluenza Virus 4 Not Detected (Not Detect); Respiratory Syncytial Virus Not Detected (Not Detect)
[2020-07-11] MEDS: polyethylene glycoL 3350 17 GM POWD.PACK PO SCH (21:59)
[2020-07-11] MEDS: Sennosides/Docusate Sodium TABLET PO SCH (21:59)
[2020-07-12 02:40] LABS: Immature Granulocytes % 0.5 % (0-4); Mean Corpuscular HGB Conc 33.8 g/dL (31.6-35.5); Red Cell Distribution Width 12.8 % (11.5-14.5)
[2020-07-12 02:42] LABS: Basophils % 0.7 %; Eosinophils # 0.1 K/mcL (0.0-0.6); Hematocrit 22.5 % (35.3-44.9); Hemoglobin 7.6 g/dL (11.5-15.4); Immature Platelets 4.6 % (1.1-6.1); Lymphocytes # 0.7 K/mcL (0.6-4.6); Mean Corpuscular Volume 85.9 fL (83.0-100.0); Mean Platelet Volume 10.3 fL (9.4-12.4); Monocytes # 0.5 K/mcL (0.0-1.3); Monocytes % 8.9 %; Neutrophils # 4.2 K/mcL (1.6-8.9); Platelet Count 103 K/mcL (140-400); Red Blood Count 2.62 M/mcL (3.82-4.97); Segmented Neutrophils % 74.9 %; White Blood Count 5.6 K/mcL (4.3-11.1)
[2020-07-12 02:57] LABS: % Iron Saturation 40 % (15-50); Iron 100 mcg/dL (50-170); Transferrin 178 mg/dL (203-362)
[2020-07-12 02:59] LABS: Calcium 8.3 mg/dL (8.6-10.3); Magnesium 1.3 mg/dL (1.6-2.6); Potassium 3.4 mEq/L (3.5-5.1); Troponin I 0.08 ng/mL (< 0.04)
[2020-07-12 03:02] LABS: Platelet Estimate Decreased (Normal)
[2020-07-12 03:14] LABS: Ferritin 307 ng/mL (10-120)
[2020-07-12 03:20] LABS: Folate > 22.3 ng/mL (3.0-16.0); Vitamin B12 564 pg/mL (250-1100)
[2020-07-12] MEDS: Acetaminophen 325 MG TABLET PO PRN (04:04)
[2020-07-12] MEDS: Sennosides/Docusate Sodium TABLET PO SCH ×2 (09:20→21:11)
[2020-07-12] MEDS: Ascorbic Acid 500 MG TABLET PO SCH (09:21)
[2020-07-12] MEDS: Multivit/Ca/Min/Fe/FA 1 TAB TABLET PO SCH (09:21)
[2020-07-12] MEDS: amLODIPine 5 MG TABLET PO SCH ×2 (09:21→18:19)
[2020-07-12] MEDS: cefTRIAXone 1,000 MG in 0.9 % Sodium Chloride Mini Bag 100 ML IVPB SCH (09:22)
[2020-07-12] MEDS: Cyanocobalamin (B-12) 1,000 MCG TABLET PO SCH (09:22)
[2020-07-12] MEDS: Azithromycin 500 MG in 0.9 % Sodium Chloride 250 ML IVPB SCH (09:23)
[2020-07-12] MEDS: polyethylene glycoL 3350 17 GM POWD.PACK PO SCH (09:23)
[2020-07-12] MEDS: Folic Acid 1 MG TABLET PO SCH (09:23)
[2020-07-12] MEDS: Ondansetron 4 MG/2 ML VIAL IVP PRN (10:40)
[2020-07-12] MEDS: Lactulose Oral Soln 20 GM/30 ML UDC PO PRN (13:48)
[2020-07-12] MEDS ORDERED: polyethylene glycoL 3350 17 GM POWD.PACK PO ONE (15:05)
[2020-07-12] MEDS ORDERED: Iron Sucrose Complex 400 MG in 0.9 % Sodium Chloride 250 ML IVPB ONE (17:09)
[2020-07-13 03:03] LABS: Basophils % 0.7 %; Eosinophils # 0.2 K/mcL (0.0-0.6); Eosinophils % 4.3 %; Hematocrit 23.1 % (35.3-44.9); Hemoglobin 7.8 g/dL (11.5-15.4); Immature Granulocytes % 0.7 % (0-4); Lymphocytes # 0.7 K/mcL (0.6-4.6); Lymphocytes % 17.1 %; Mean Corpuscular HGB Conc 33.8 g/dL (31.6-35.5); Mean Corpuscular Hemoglobin 29.4 pg (28.0-33.3); Mean Corpuscular Volume 87.2 fL (83.0-100.0); Mean Platelet Volume 9.9 fL (9.4-12.4); Monocytes # 0.6 K/mcL (0.0-1.3); Monocytes % 13.5 %; Neutrophils # 2.6 K/mcL (1.6-8.9); Platelet Count 100 K/mcL (140-400); Red Blood Count 2.65 M/mcL (3.82-4.97); Red Cell Distribution Width 12.7 % (11.5-14.5); Segmented Neutrophils % 63.7 %; White Blood Count 4.1 K/mcL (4.3-11.1)
[2020-07-13 03:22] LABS: BUN/Creatinine Ratio 12 (6-26); Blood Urea Nitrogen 12 mg/dL (8-23); Calcium 8.3 mg/dL (8.6-10.3); Carbon Dioxide 31 mEq/L (23-29); Chloride 98 mEq/L (98-107); Glucose 143 mg/dL (70-105); Magnesium 1.8 mg/dL (1.6-2.6); Osmolality,Calculated 284 (280-300); Potassium 3.4 mEq/L (3.5-5.1); Sodium 136 mEq/L (136-145); eGFR For African Americans > 60 (> 60); eGFR For Non-African Americans 51 (> 60)
[2020-07-13] MEDS: Ondansetron 4 MG/2 ML VIAL IVP PRN (08:22)
[2020-07-13] MEDS: polyethylene glycoL 3350 17 GM POWD.PACK PO SCH (08:23)
[2020-07-13] MEDS: Sennosides/Docusate Sodium TABLET PO SCH ×2 (08:23→19:42)
[2020-07-13] MEDS: Ascorbic Acid 500 MG TABLET PO SCH (08:23)
[2020-07-13] MEDS: Folic Acid 1 MG TABLET PO SCH (08:24)
[2020-07-13] MEDS: Cyanocobalamin (B-12) 1,000 MCG TABLET PO SCH (08:24)
[2020-07-13] MEDS: amLODIPine 5 MG TABLET PO SCH ×2 (08:24→18:12)
[2020-07-13] MEDS: Lactulose Oral Soln 20 GM/30 ML UDC PO PRN ×2 (08:24→19:42)
[2020-07-13] MEDS: Multivit/Ca/Min/Fe/FA 1 TAB TABLET PO SCH (08:24)
[2020-07-13] MEDS: cefTRIAXone 1,000 MG in 0.9 % Sodium Chloride Mini Bag 100 ML IVPB SCH (08:25)
[2020-07-13] MEDS: Azithromycin 500 MG in 0.9 % Sodium Chloride 250 ML IVPB SCH (08:25)
[2020-07-13] MEDS ORDERED: Milk and Molasses Enema 200 ML RC PRN (17:00)
[2020-07-13] MEDS: Acetaminophen 325 MG TABLET PO PRN (19:53)
[2020-07-14 03:00] LABS: Basophils % 0.5 %; Eosinophils # 0.2 K/mcL (0.0-0.6); Eosinophils % 5.3 %; Hematocrit 22.2 % (35.3-44.9); Hemoglobin 7.7 g/dL (11.5-15.4); Immature Granulocytes % 0.2 % (0-4); Lymphocytes # 1.1 K/mcL (0.6-4.6); Lymphocytes % 26.7 %; Mean Corpuscular HGB Conc 34.7 g/dL (31.6-35.5); Mean Corpuscular Hemoglobin 30.6 pg (28.0-33.3); Mean Corpuscular Volume 88.1 fL (83.0-100.0); Mean Platelet Volume 10.6 fL (9.4-12.4); Monocytes # 0.6 K/mcL (0.0-1.3); Monocytes % 13.9 %; Neutrophils # 2.2 K/mcL (1.6-8.9); Platelet Count 118 K/mcL (140-400); Red Blood Count 2.52 M/mcL (3.82-4.97); Red Cell Distribution Width 12.6 % (11.5-14.5); Segmented Neutrophils % 53.4 %; White Blood Count 4.2 K/mcL (4.3-11.1)
[2020-07-14 03:20] LABS: Calcium 8.8 mg/dL (8.6-10.3); Magnesium 1.7 mg/dL (1.6-2.6); Potassium 3.8 mEq/L (3.5-5.1)
[2020-07-14] MEDS: amLODIPine 5 MG TABLET PO SCH (09:22)
[2020-07-14] MEDS: Multivit/Ca/Min/Fe/FA 1 TAB TABLET PO SCH (09:22)
[2020-07-14] MEDS: Cyanocobalamin (B-12) 1,000 MCG TABLET PO SCH (09:22)
[2020-07-14] MEDS: Folic Acid 1 MG TABLET PO SCH (09:22)
[2020-07-14] MEDS: cefTRIAXone 1,000 MG in 0.9 % Sodium Chloride Mini Bag 100 ML IVPB SCH (09:23)
[2020-07-14] MEDS: Lactulose Oral Soln 20 GM/30 ML UDC PO PRN (09:23)
[2020-07-14] MEDS: polyethylene glycoL 3350 17 GM POWD.PACK PO SCH (09:23)
[2020-07-14] MEDS: Azithromycin 500 MG in 0.9 % Sodium Chloride 250 ML IVPB SCH (09:24)
[2020-07-14] MEDS: Ascorbic Acid 500 MG TABLET PO SCH (09:25)
[2020-07-14 10:48] VITALS: BP 110/66
== END 2020-07-14 11:51 | disposition home or self-care (01) ==
LOC: 2ANU 13:08 → EMEROOARM 13:08 → SUATTDRO 18:11 → 2ANU 19:49
PROVIDERS: ADMIT Student in an Organized Health Care Education/Training Program; ATTEND Pharmacist

== ENCOUNTER 2020-08-20 12:21 | Observation (INO) ==
[2020-08-20 13:11] LABS: Basophils % 0.3 %; Eosinophils % 0.1 %; Hematocrit 24.8 % (35.3-44.9); Hemoglobin 8.1 g/dL (11.5-15.4); Immature Granulocytes % 0.7 % (0-4); Lymphocytes # 0.6 K/mcL (0.6-4.6); Mean Corpuscular HGB Conc 32.7 g/dL (31.6-35.5); Mean Corpuscular Hemoglobin 30.7 pg (28.0-33.3); Mean Corpuscular Volume 93.9 fL (83.0-100.0); Mean Platelet Volume 9.5 fL (9.4-12.4); Monocytes % 13.3 %; Neutrophils # 5.9 K/mcL (1.6-8.9); Platelet Count 209 K/mcL (140-400); Red Blood Count 2.64 M/mcL (3.82-4.97); Red Cell Distribution Width 19.5 % (11.5-14.5); Segmented Neutrophils % 77.6 %; White Blood Count 7.5 K/mcL (4.3-11.1)
[2020-08-20 13:32] LABS: Albumin 3.7 g/dL (3.5-5.7); Albumin/Globulin Ratio 1.3 (1.1-2.2); Bilirubin,Total 0.9 mg/dL (0.3-1.0); Calcium 8.9 mg/dL (8.6-10.3); Globulin 2.8 g/dL (2.4-3.5); Potassium 4.2 mEq/L (3.5-5.1); Total Protein 6.5 g/dL (6.4-8.9)
[2020-08-20 14:13] LABS: Adenovirus Not Detected (Not Detect); Bordetella Pertussis Not Detected (Not Detect); Chlamydophila pneumoniae Not Detected (Not Detect); Coronavirus 229E Not Detected (Not Detect); Coronavirus HKU1 Not Detected (Not Detect); Coronavirus NL63 Not Detected (Not Detect); Coronavirus OC43 Not Detected (Not Detect); Human Metapneumovirus Not Detected (Not Detect); Human Rhinovirus/Enterovirus Not Detected (Not Detect); Influenza A Subtype 2009 H1 Not Detected (Not Detect); Influenza B Not Detected (Not Detect); Mycoplasma pneumoniae Not Detected (Not Detect); Parainfluenza Virus 1 Not Detected (Not Detect); Parainfluenza Virus 2 Not Detected (Not Detect); Parainfluenza Virus 3 Not Detected (Not Detect); Parainfluenza Virus 4 Not Detected (Not Detect); Respiratory Syncytial Virus Not Detected (Not Detect); SARS-CoV-2 Not Detected (Not Detect)
[2020-08-20 14:32] LABS: Bacteria,Urine Few per hpf (None-Few); Bilirubin,Urine Negative (Negative); Blood,Urine Large (Negative); Clarity,Urine Turbid (Clear); Color,Urine Light-Orange (Yellow); Glucose,Urine (UA) 30 mg/dL (Normal); Ketones,Urine Negative (Negative); Leukocyte Esterase,Urine Large (Negative); Mucus,Urine Few per lpf (None-Few); Nitrite,Urine Positive (Negative); PH,Urine 6.5 pH Units (5.0-8.0); Protein,Urine 200 mg/dL (Neg-Trace); RBC,Urine 50-100 per hpf (0-3); Specific Gravity,Urine 1.014 (1.010-1.025); Squamous Epithelial Cell,Urine Few per hpf (None-Few); Urobilinogen,Urine Normal (Normal); WBC,Urine TNTC per hpf (0-3)
[2020-08-20 14:40] LABS: Bilirubin,Urine Negative (Negative); Blood,Urine Large (Negative); Clarity,Urine Slightly Cloudy (Clear); Color,Urine Yellow (Yellow); Glucose,Urine (UA) Normal (Normal); Ketones,Urine Negative (Negative); Leukocyte Esterase,Urine Small (Negative); Nitrite,Urine Positive (Negative); PH,Urine 6.5 pH Units (5.0-8.0); Protein,Urine >=300 mg/dL (Neg-Trace); Specific Gravity,Urine 1.025 (1.010-1.025); Urobilinogen,Urine Normal (Normal)
[2020-08-20 15:03] LABS: Amorphous Sediment,Urine Few per hpf (None-Few); Bacteria,Urine Few per hpf (None-Few); Hyaline Casts,Urine Few per lpf (None Seen); Mucus,Urine Few per lpf (None-Few); Squamous Epithelial Cell,Urine Few per hpf (None-Few); WBC,Urine 50-100 per hpf (0-3)
[2020-08-20] MEDS ORDERED: cefTRIAXone 1,000 MG in 0.9 % Sodium Chloride Mini Bag 100 ML IVPB ONE (15:32)
[2020-08-20] MEDS ORDERED: Naloxone 0.4 MG/ML INJ IVP PRN (17:21)
[2020-08-20] MEDS ORDERED: *HR* OxyCODONE/APAP 5/325 TABLET PO PRN (17:38)
[2020-08-20] MEDS ORDERED: Acetaminophen 325 MG TABLET PO PRN (17:38)
[2020-08-20] MEDS ORDERED: Ondansetron ODT 4 MG TAB.RAPDIS PO PRN (18:25)
[2020-08-20] MEDS ORDERED: Vancomycin 1,500 MG/265 ML IV.SOLN IVPB ONE (19:00)
[2020-08-20] MEDS ORDERED: Doxycycline 100 MG CAPSULE PO SCH (21:00)
[2020-08-20] MEDS: amLODIPine 5 MG TABLET PO SCH (21:44)
[2020-08-21 03:27] LABS: Basophils % 0.2 %; Eosinophils # 0.1 K/mcL (0.0-0.6); Hemoglobin 6.1 g/dL (11.5-15.4); Immature Granulocytes % 0.4 % (0-4); Lymphocytes # 0.9 K/mcL (0.6-4.6); Mean Corpuscular HGB Conc 32.1 g/dL (31.6-35.5); Mean Corpuscular Hemoglobin 30.2 pg (28.0-33.3); Mean Corpuscular Volume 94.1 fL (83.0-100.0); Mean Platelet Volume 9.4 fL (9.4-12.4); Monocytes # 0.9 K/mcL (0.0-1.3); Monocytes % 17.8 %; Neutrophils # 3.1 K/mcL (1.6-8.9); Platelet Count 163 K/mcL (140-400); Red Blood Count 2.02 M/mcL (3.82-4.97); Red Cell Distribution Width 19.7 % (11.5-14.5); Segmented Neutrophils % 62.6 %; White Blood Count 4.9 K/mcL (4.3-11.1)
[2020-08-21 03:46] LABS: BUN/Creatinine Ratio 16 (6-26); Blood Urea Nitrogen 16 mg/dL (8-23); Calcium 8.5 mg/dL (8.6-10.3); Carbon Dioxide 29 mEq/L (23-29); Chloride 98 mEq/L (98-107); Glucose 121 mg/dL (70-105); Magnesium 1.7 mg/dL (1.6-2.6); Osmolality,Calculated 276 (280-300); Phosphorous 2.7 mg/dL (2.7-4.5); Potassium 3.8 mEq/L (3.5-5.1); Sodium 132 mEq/L (136-145); eGFR For African Americans > 60 (> 60); eGFR For Non-African Americans 52 (> 60)
[2020-08-21] MEDS: *HR* Heparin 5,000 UNIT/ML VIAL SQ SCH ×2 (05:49→17:31)
[2020-08-21] MEDS: IODINE PO SCH (07:49)
[2020-08-21] MEDS ORDERED: Insulin LISPRO 300 UNITS/3 ML VIAL SQ SCH (08:00)
[2020-08-21] MEDS: amLODIPine 5 MG TABLET PO SCH (10:25)
[2020-08-21] MEDS: Folic Acid 1 MG TABLET PO SCH (10:27)
[2020-08-21] MEDS: polyethylene glycoL 3350 17 GM POWD.PACK PO SCH (10:27)
[2020-08-21 10:48] LABS: Hematocrit 22.3 % (35.3-44.9); Hemoglobin 7.2 g/dL (11.5-15.4)
[2020-08-21 10:56] LABS: INR 1.3; Prothrombin Time 15.2 Seconds (9.4-12.1)
[2020-08-21] MEDS ORDERED: Sennosides/Docusate Sodium TABLET PO PRN (11:38)
[2020-08-21] MEDS: Ascorbic Acid 500 MG TABLET PO SCH (13:06)
[2020-08-21] MEDS: Multivit/Ca/Min/Fe/FA 1 TAB TABLET PO SCH (13:07)
[2020-08-21] MEDS: Cyanocobalamin (B-12) 1,000 MCG TABLET PO SCH (13:08)
[2020-08-21] MEDS ORDERED: cefTRIAXone 1,000 MG in 0.9 % Sodium Chloride Mini Bag 100 ML IVPB SCH (18:00)
[2020-08-22 05:18] LABS: Basophils % 0.6 %; Eosinophils # 0.2 K/mcL (0.0-0.6); Eosinophils % 3.7 %; Hematocrit 23.4 % (35.3-44.9); Hemoglobin 7.6 g/dL (11.5-15.4); Immature Granulocytes % 0.6 % (0-4); Lymphocytes % 19.6 %; Mean Corpuscular HGB Conc 32.5 g/dL (31.6-35.5); Mean Corpuscular Hemoglobin 30.2 pg (28.0-33.3); Mean Corpuscular Volume 92.9 fL (83.0-100.0); Mean Platelet Volume 9.4 fL (9.4-12.4); Monocytes # 0.8 K/mcL (0.0-1.3); Monocytes % 15.5 %; Neutrophils # 2.9 K/mcL (1.6-8.9); Nucleated Red Blood Cells 0.4 /100 WBC (0); Platelet Count 204 K/mcL (140-400); Red Blood Count 2.52 M/mcL (3.82-4.97); Red Cell Distribution Width 19.1 % (11.5-14.5); White Blood Count 4.8 K/mcL (4.3-11.1)
[2020-08-22 05:36] LABS: Magnesium 1.9 mg/dL (1.6-2.6); Phosphorous 3.4 mg/dL (2.7-4.5)
[2020-08-22 05:38] LABS: % Iron Saturation 25 % (15-50); BUN/Creatinine Ratio 17 (6-26); Blood Urea Nitrogen 14 mg/dL (8-23); Calcium 8.6 mg/dL (8.6-10.3); Carbon Dioxide 27 mEq/L (23-29); Chloride 103 mEq/L (98-107); Glucose 110 mg/dL (70-105); Iron 53 mcg/dL (50-170); Osmolality,Calculated 285 (280-300); Potassium 3.8 mEq/L (3.5-5.1); Sodium 137 mEq/L (136-145); Transferrin 152 mg/dL (203-362); eGFR For African Americans > 60 (> 60); eGFR For Non-African Americans > 60 (> 60)
[2020-08-22] MEDS: *HR* Heparin 5,000 UNIT/ML VIAL SQ SCH (05:51)
[2020-08-22 05:56] LABS: Ferritin 534 ng/mL (10-120)
[2020-08-22] MEDS: IODINE PO SCH (06:01)
[2020-08-22 07:08] VITALS: BP 131/79
[2020-08-22] MEDS ORDERED: Heparin 1,000 UNITS/500 mL 500 ML ONE (07:35)
[2020-08-22] MEDS ORDERED: Isovue-300 150 ML INFUS..BTL IVP ONE (08:15)
[2020-08-22] MEDS ORDERED: Megestrol Acetate 400 MG/10 ML UDC PO SCH (09:15)
[2020-08-22] MEDS: Cyanocobalamin (B-12) 1,000 MCG TABLET PO SCH (10:16)
[2020-08-22] MEDS: Folic Acid 1 MG TABLET PO SCH (10:16)
[2020-08-22] MEDS: polyethylene glycoL 3350 17 GM POWD.PACK PO SCH (10:16)
[2020-08-22] MEDS: amLODIPine 5 MG TABLET PO SCH (10:18)
[2020-08-22] MEDS: Ascorbic Acid 500 MG TABLET PO SCH (12:25)
[2020-08-22] MEDS: Multivit/Ca/Min/Fe/FA 1 TAB TABLET PO SCH (12:25)
== END 2020-08-22 13:13 | disposition home health service (06) ==
LOC: EMEROOARM 12:21 → 3BNU 12:21 → SUATTDRO 15:54 → 3BNU 16:47
PROVIDERS: ADMIT Internal Medicine; ATTEND Internal Medicine

== ENCOUNTER 2020-11-11 12:03 | Inpatient (IN) ==
[2020-11-11 14:44] LABS: Basophils % 0.2 %; Hematocrit 26.5 % (35.3-44.9); Hemoglobin 8.4 g/dL (11.5-15.4); Immature Granulocytes % 0.7 % (0-4); Lymphocytes # 0.6 K/mcL (0.6-4.6); Lymphocytes % 9.3 %; Mean Corpuscular HGB Conc 31.7 g/dL (31.6-35.5); Mean Corpuscular Volume 91.4 fL (83.0-100.0); Mean Platelet Volume 9.6 fL (9.4-12.4); Monocytes # 0.5 K/mcL (0.0-1.3); Monocytes % 7.8 %; Neutrophils # 4.9 K/mcL (1.6-8.9); Platelet Count 202 K/mcL (140-400); Red Cell Distribution Width 14.9 % (11.5-14.5); White Blood Count 5.9 K/mcL (4.3-11.1)
[2020-11-11 14:45] LABS: Bacteria,Urine Few per hpf (None-Few); Bilirubin,Urine Negative (Negative); Blood,Urine Large (Negative); Clarity,Urine Ex.Turbid (Clear); Color,Urine Dark-Yellow (Yellow); Glucose,Urine (UA) Normal (Normal); Hyaline Casts,Urine Few per lpf (None Seen); Ketones,Urine Negative (Negative); Leukocyte Esterase,Urine Large (Negative); Nitrite,Urine Negative (Negative); PH,Urine 5.5 pH Units (5.0-8.0); Protein,Urine 200 mg/dL (Neg-Trace); RBC,Urine TNTC per hpf (0-3); Specific Gravity,Urine 1.017 (1.010-1.025); Squamous Epithelial Cell,Urine Few per hpf (None-Few); Urobilinogen,Urine Normal (Normal); WBC,Urine TNTC per hpf (0-3)
[2020-11-11 14:47] LABS: Bacteria,Urine Few per hpf (None-Few); Bilirubin,Urine Negative (Negative); Blood,Urine Negative (Negative); Clarity,Urine Turbid (Clear); Color,Urine Yellow (Yellow); Glucose,Urine (UA) Normal (Normal); Ketones,Urine Negative (Negative); Leukocyte Esterase,Urine Moderate (Negative); Nitrite,Urine Negative (Negative); PH,Urine 5.5 pH Units (5.0-8.0); Protein,Urine 100 mg/dL (Neg-Trace); Squamous Epithelial Cell,Urine Few per hpf (None-Few); Urobilinogen,Urine Normal (Normal); WBC,Urine 50-100 per hpf (0-3)
[2020-11-11 15:03] LABS: Albumin 3.2 g/dL (3.5-5.7); Bilirubin,Direct 0.1 mg/dL (0.0-0.2); Bilirubin,Indirect 0.3 mg/dL (0.0-1.0); Bilirubin,Total 0.4 mg/dL (0.3-1.0); Calcium 8.1 mg/dL (8.6-10.3); Globulin 3.1 g/dL (2.4-3.5); Potassium 4.8 mEq/L (3.5-5.1); Total Protein 6.3 g/dL (6.4-8.9)
[2020-11-11] MEDS ORDERED: Naloxone 0.4 MG/ML INJ IVP PRN (15:50)
[2020-11-11] MEDS ORDERED: Ondansetron ODT 4 MG TAB.RAPDIS SL PRN (15:50)
[2020-11-11] MEDS ORDERED: Vancomycin 1,250 MG/262.5 ML IV.SOLN IVPB ONE (16:00)
[2020-11-11] MEDS: 0.9 % Sodium Chloride 1,000 ML IVC SCH (17:04)
[2020-11-11] MEDS: Cefepime HCl 2,000 MG in Water for inj. (sterile) 20 ML IVP SCH (17:07)
[2020-11-11] MEDS ORDERED: Dextrose Gel 15 GM/37.5 ML TUBE PO PRN ×2 (17:19)
[2020-11-11] MEDS ORDERED: *HR* Dextrose 50 % in Water (Vial) 50 ML VIAL IVP PRN (17:19)
[2020-11-11] MEDS ORDERED: D5% in Water 1,000 ML IVC PRN (17:19)
[2020-11-11] MEDS: Insulin LISPRO 300 UNITS/3 ML VIAL SQ SCH (18:40)
[2020-11-11] MEDS ORDERED: *HR* OxyCODONE Immed Rel 5 MG TABLET PO PRN (20:03)
[2020-11-11] MEDS: Acetaminophen 325 MG TABLET PO PRN (20:24)
[2020-11-12] MEDS: Acetaminophen 325 MG TABLET PO PRN ×2 (02:59→20:19)
[2020-11-12] MEDS: 0.9 % Sodium Chloride 1,000 ML IVC SCH (03:03)
[2020-11-12 03:42] LABS: Hematocrit 26.1 % (35.3-44.9); Hemoglobin 8.3 g/dL (11.5-15.4); Immature Granulocytes % 0.8 % (0-4); Lymphocytes # 0.5 K/mcL (0.6-4.6); Lymphocytes % 9.3 %; Mean Corpuscular HGB Conc 31.8 g/dL (31.6-35.5); Mean Corpuscular Hemoglobin 28.7 pg (28.0-33.3); Mean Corpuscular Volume 90.3 fL (83.0-100.0); Mean Platelet Volume 9.5 fL (9.4-12.4); Monocytes # 0.3 K/mcL (0.0-1.3); Monocytes % 6.6 %; Neutrophils # 4.3 K/mcL (1.6-8.9); Platelet Count 186 K/mcL (140-400); Red Blood Count 2.89 M/mcL (3.82-4.97); Red Cell Distribution Width 14.8 % (11.5-14.5); Segmented Neutrophils % 83.3 %; White Blood Count 5.2 K/mcL (4.3-11.1)
[2020-11-12 03:58] LABS: Magnesium 1.6 mg/dL (1.6-2.6); Phosphorous 2.7 mg/dL (2.7-4.5); Potassium 4.4 mEq/L (3.5-5.1)
[2020-11-12] MEDS: Insulin LISPRO 300 UNITS/3 ML VIAL SQ SCH ×3 (09:16→16:45)
[2020-11-12 11:57] LABS: Protein/Creatinine Ratio,Urine 1.3 mg/mg (0.00-0.20)
[2020-11-12 11:59] LABS: Uric Acid 6.5 mg/dL (2.3-7.6)
[2020-11-12 12:39] LABS: Hepatitis B Surface Antigen Nonreactive (Nonreactive)
[2020-11-12 13:08] LABS: Hepatitis B Core IgM Nonreactive (Nonreactive); Hepatitis C Virus Antibody Nonreactive (Nonreactive)
[2020-11-12 13:10] LABS: Hepatitis A Antibody IgM Nonreactive (Nonreactive)
[2020-11-12] MEDS ORDERED: 0.9 % Sodium Chloride 1,000 ML IVC SCH (13:15)
[2020-11-12] MEDS ORDERED: *HR* Heparin 5,000 UNIT/ML VIAL SQ SCH (14:00)
[2020-11-12] MEDS: Cefepime HCl 2,000 MG in Water for inj. (sterile) 20 ML IVP SCH (15:57)
[2020-11-12] MEDS ORDERED: Sennosides/Docusate Sodium TABLET PO PRN (17:08)
[2020-11-12] MEDS ORDERED: *HR* OxyCODONE/APAP 5/325 TABLET PO PRN (17:34)
[2020-11-12] MEDS: *HR* Heparin 5,000 UNIT/ML VIAL SQ SCH (18:31)
[2020-11-12 20:09] LABS: Adenovirus Not Detected (Not Detect); Coronavirus 229E Not Detected (Not Detect); Coronavirus HKU1 Not Detected (Not Detect); Coronavirus NL63 Not Detected (Not Detect)
[2020-11-12 20:10] LABS: Coronavirus OC43 Not Detected (Not Detect)
[2020-11-12 20:11] LABS: SARS-CoV-2 DETECTED (Not Detect)
[2020-11-12 20:12] LABS: Bordetella Pertussis Not Detected (Not Detect); Chlamydophila pneumoniae Not Detected (Not Detect); Human Metapneumovirus Not Detected (Not Detect); Human Rhinovirus/Enterovirus Not Detected (Not Detect); Influenza A Subtype 2009 H1 Not Detected (Not Detect); Influenza B Not Detected (Not Detect); Mycoplasma pneumoniae Not Detected (Not Detect); Parainfluenza Virus 1 Not Detected (Not Detect); Parainfluenza Virus 2 Not Detected (Not Detect); Parainfluenza Virus 3 Not Detected (Not Detect); Parainfluenza Virus 4 Not Detected (Not Detect); Respiratory Syncytial Virus Not Detected (Not Detect)
[2020-11-13 04:01] LABS: Hematocrit 27.6 % (35.3-44.9); Hemoglobin 8.8 g/dL (11.5-15.4); Immature Granulocytes % 0.4 % (0-4); Lymphocytes # 0.5 K/mcL (0.6-4.6); Lymphocytes % 20.9 %; Mean Corpuscular HGB Conc 31.9 g/dL (31.6-35.5); Mean Corpuscular Volume 94.2 fL (83.0-100.0); Mean Platelet Volume 9.4 fL (9.4-12.4); Monocytes # 0.2 K/mcL (0.0-1.3); Monocytes % 7.9 %; Neutrophils # 1.8 K/mcL (1.6-8.9); Platelet Count 167 K/mcL (140-400); Red Blood Count 2.93 M/mcL (3.82-4.97); Red Cell Distribution Width 14.9 % (11.5-14.5); Segmented Neutrophils % 70.8 %
[2020-11-13 04:02] LABS: White Blood Count 2.5 K/mcL (4.3-11.1)
[2020-11-13 04:13] LABS: Calcium 7.6 mg/dL (8.6-10.3); Magnesium 1.5 mg/dL (1.6-2.6); Phosphorous 2.7 mg/dL (2.7-4.5)
[2020-11-13] MEDS: *HR* Heparin 5,000 UNIT/ML VIAL SQ SCH (05:15)
[2020-11-13] MEDS ORDERED: Magnesium Sulfate 1 GM/102 ML PIGGYBACK IVPB ONE (07:21)
[2020-11-13] MEDS: Insulin LISPRO 300 UNITS/3 ML VIAL SQ SCH ×3 (07:52→16:29)
[2020-11-13] MEDS: Cyanocobalamin (B-12) 1,000 MCG TABLET PO SCH (08:32)
[2020-11-13] MEDS: amLODIPine 5 MG TABLET PO SCH (08:32)
[2020-11-13] MEDS: Ascorbic Acid 500 MG TABLET PO SCH (08:32)
[2020-11-13] MEDS: Folic Acid 1 MG TABLET PO SCH (08:32)
[2020-11-13] MEDS: polyethylene glycoL 3350 17 GM POWD.PACK PO SCH (08:33)
[2020-11-13] MEDS: Dexamethasone 4 MG/ML VIAL IVP SCH (08:33)
[2020-11-13] MEDS: Megestrol Acetate 400 MG/10 ML UDC PO SCH (08:37)
[2020-11-13] MEDS ORDERED: (Omega-3 Acid Ethyl Esters [Lovaza] 1 GM) PO SCH (09:00)
[2020-11-13] MEDS ORDERED: COPPER PO SCH (09:00)
[2020-11-13] MEDS ORDERED: ZINC PO SCH (09:00)
[2020-11-13] MEDS ORDERED: VIT C PO SCH (09:00)
[2020-11-13] MEDS ORDERED: VIT E PO SCH (09:00)
[2020-11-13] MEDS ORDERED: VIT A PO SCH (09:00)
[2020-11-13] MEDS ORDERED: Ringers Solution, Lactated 500 ML IVC ONE (10:04)
[2020-11-13] MEDS: Cefepime HCl 2,000 MG in Water for inj. (sterile) 20 ML IVP SCH (15:35)
[2020-11-14] MEDS: Cefepime HCl 2,000 MG in Water for inj. (sterile) 20 ML IVP SCH ×2 (00:14→12:11)
[2020-11-14] MEDS: *HR* Enoxaparin 40 MG/0.4 ML SYRINGE SQ SCH (05:11)
[2020-11-14 05:57] LABS: Hemoglobin 8.4 g/dL (11.5-15.4); Red Cell Distribution Width 14.7 % (11.5-14.5)
[2020-11-14 05:58] LABS: Hematocrit 27.2 % (35.3-44.9); Immature Granulocytes % 0.6 % (0-4); Lymphocytes % 19.2 %; Mean Corpuscular HGB Conc 30.9 g/dL (31.6-35.5); Mean Corpuscular Hemoglobin 28.4 pg (28.0-33.3); Mean Corpuscular Volume 91.9 fL (83.0-100.0); Mean Platelet Volume 9.6 fL (9.4-12.4); Monocytes # 0.2 K/mcL (0.0-1.3); Monocytes % 11.3 %; Neutrophils # 1.2 K/mcL (1.6-8.9); Platelet Count 196 K/mcL (140-400); Red Blood Count 2.96 M/mcL (3.82-4.97); Segmented Neutrophils % 68.9 %; White Blood Count 1.8 K/mcL (4.3-11.1)
[2020-11-14 05:59] LABS: Fibrinogen 552 mg/dL (169-393)
[2020-11-14 06:00] LABS: D-Dimer 2297 ng/mLFEU (0-500)
[2020-11-14 06:01] LABS: Lymphocytes # 0.4 K/mcL (0.6-4.6)
[2020-11-14 06:19] LABS: BUN/Creatinine Ratio 18 (6-26); Blood Urea Nitrogen 19 mg/dL (8-23); Calcium 8.4 mg/dL (8.6-10.3); Carbon Dioxide 22 mEq/L (23-29); Chloride 102 mEq/L (98-107); Glucose 117 mg/dL (70-105); Magnesium 1.7 mg/dL (1.6-2.6); Osmolality,Calculated 277 (280-300); Phosphorous 2.7 mg/dL (2.7-4.5); Platelet Estimate Normal (Normal); Potassium 4.6 mEq/L (3.5-5.1); Sodium 132 mEq/L (136-145); eGFR For African Americans 59 (> 60); eGFR For Non-African Americans 49 (> 60)
[2020-11-14 06:32] LABS: Ferritin > 1500 ng/mL (10-120)
[2020-11-14] MEDS: Insulin LISPRO 300 UNITS/3 ML VIAL SQ SCH ×3 (08:31→16:35)
[2020-11-14] MEDS: Folic Acid 1 MG TABLET PO SCH (09:30)
[2020-11-14] MEDS: Dexamethasone 4 MG/ML VIAL IVP SCH (09:30)
[2020-11-14] MEDS: amLODIPine 5 MG TABLET PO SCH (09:30)
[2020-11-14] MEDS: Cyanocobalamin (B-12) 1,000 MCG TABLET PO SCH (09:30)
[2020-11-14] MEDS: Ascorbic Acid 500 MG TABLET PO SCH (09:30)
[2020-11-14] MEDS: Megestrol Acetate 400 MG/10 ML UDC PO SCH (09:31)
[2020-11-14] MEDS: polyethylene glycoL 3350 17 GM POWD.PACK PO SCH (09:31)
[2020-11-14] MEDS ORDERED: 0.9 % Sodium Chloride 500 ML IVC SCH (15:00)
[2020-11-14] MEDS: Doxycycline 100 MG CAPSULE PO SCH (20:35)
[2020-11-14] MEDS ORDERED: Melatonin 3 MG TABLET PO PRN (22:50)
[2020-11-15 03:39] VITALS: BP 159/78
[2020-11-15] MEDS: *HR* Enoxaparin 40 MG/0.4 ML SYRINGE SQ SCH (04:54)
[2020-11-15 05:24] LABS: Hematocrit 26.3 % (35.3-44.9); Hemoglobin 8.5 g/dL (11.5-15.4); Mean Corpuscular HGB Conc 32.3 g/dL (31.6-35.5); Mean Corpuscular Hemoglobin 29.6 pg (28.0-33.3); Mean Corpuscular Volume 91.6 fL (83.0-100.0); Mean Platelet Volume 9.7 fL (9.4-12.4); Platelet Count 193 K/mcL (140-400); Red Blood Count 2.87 M/mcL (3.82-4.97); Red Cell Distribution Width 14.6 % (11.5-14.5)
[2020-11-15 05:26] LABS: White Blood Count 2.7 K/mcL (4.3-11.1)
[2020-11-15 05:40] LABS: BUN/Creatinine Ratio 23 (6-26); Blood Urea Nitrogen 22 mg/dL (8-23); Calcium 8.5 mg/dL (8.6-10.3); Carbon Dioxide 23 mEq/L (23-29); Chloride 102 mEq/L (98-107); Glucose 131 mg/dL (70-105); Osmolality,Calculated 283 (280-300); Potassium 4.2 mEq/L (3.5-5.1); Sodium 134 mEq/L (136-145); eGFR For African Americans > 60 (> 60); eGFR For Non-African Americans 57 (> 60)
[2020-11-15] MEDS: amLODIPine 5 MG TABLET PO SCH (08:06)
[2020-11-15] MEDS: Doxycycline 100 MG CAPSULE PO SCH (08:06)
[2020-11-15] MEDS: Cyanocobalamin (B-12) 1,000 MCG TABLET PO SCH (08:06)
[2020-11-15] MEDS: Dexamethasone 4 MG/ML VIAL IVP SCH (08:07)
[2020-11-15] MEDS: Folic Acid 1 MG TABLET PO SCH (08:07)
[2020-11-15] MEDS: Megestrol Acetate 400 MG/10 ML UDC PO SCH (08:08)
[2020-11-15] MEDS: polyethylene glycoL 3350 17 GM POWD.PACK PO SCH (08:08)
[2020-11-15] MEDS: Ascorbic Acid 500 MG TABLET PO SCH (08:11)
[2020-11-15] MEDS: Insulin LISPRO 300 UNITS/3 ML VIAL SQ SCH (08:12)
== END 2020-11-15 12:02 | disposition home or self-care (01) | DRG 871 ==
LOC: 3ANU 12:03 → EMEROOARM 12:03 → SUATTDRO 15:45 → 3ANU 16:43 → 2NENU 11-12 21:35
PROVIDERS: ADMIT Internal Medicine; ATTEND Internal Medicine

== ENCOUNTER 2020-11-21 18:01 | Observation (INO) ==
[2020-11-22] MEDS ORDERED: Naloxone 0.4 MG/ML INJ IVP PRN ×2 (04:00→04:04)
[2020-11-22] MEDS ORDERED: Ondansetron ODT 4 MG TAB.RAPDIS SL PRN (04:04)
[2020-11-22] MEDS ORDERED: Acetaminophen 325 MG TABLET PO PRN (04:04)
[2020-11-22 04:46] LABS: Basophils % 0.3 %; Hematocrit 29.3 % (35.3-44.9); Hemoglobin 9.1 g/dL (11.5-15.4); Immature Granulocytes % 1.9 % (0-4); Lymphocytes # 0.4 K/mcL (0.6-4.6); Lymphocytes % 11.9 %; Mean Corpuscular HGB Conc 31.1 g/dL (31.6-35.5); Mean Corpuscular Hemoglobin 28.6 pg (28.0-33.3); Mean Corpuscular Volume 92.1 fL (83.0-100.0); Mean Platelet Volume 10.4 fL (9.4-12.4); Monocytes # 0.4 K/mcL (0.0-1.3); Monocytes % 11.9 %; Neutrophils # 2.7 K/mcL (1.6-8.9); Platelet Count 255 K/mcL (140-400); Red Blood Count 3.18 M/mcL (3.82-4.97); Red Cell Distribution Width 15.8 % (11.5-14.5); White Blood Count 3.6 K/mcL (4.3-11.1)
[2020-11-22 04:46] LABS: INR 1.8; Prothrombin Time 20.4 Seconds (9.4-12.1)
[2020-11-22 05:00] LABS: Magnesium 1.6 mg/dL (1.6-2.6); Phosphorous 2.8 mg/dL (2.7-4.5)
[2020-11-22 05:00] LABS: Calcium 8.4 mg/dL (8.6-10.3); Potassium 4.6 mEq/L (3.5-5.1)
[2020-11-22 05:10] LABS: Platelet Estimate Normal (Normal); Reactive Lymphocytes Present (Not Present); Toxic Granulation Present (Not Present)
[2020-11-22] MEDS ORDERED: Perflutren Lipid Microsphere 1.3 ML in 0.9 % Sodium Chloride 8.7 ML IVP PRN (11:54)
[2020-11-22] MEDS ORDERED: 0.9 % Sodium Chloride 500 ML ONE (13:32)
[2020-11-22] MEDS ORDERED: Sennosides/Docusate Sodium TABLET PO PRN (16:59)
[2020-11-22] MEDS ORDERED: NON-FORMULARY MEDICATION 1 EACH EACH (Ondansetron Hcl [Ondansetron Hcl] 8 MG) PO PRN (16:59)
[2020-11-22] MEDS ORDERED: *HR* OxyCODONE/APAP 5/325 TABLET PO PRN (16:59)
[2020-11-22 18:54] LABS: Sodium, Urine 82.8 mEq/L
[2020-11-22 19:00] LABS: Bacteria,Urine Few per hpf (None-Few); Bilirubin,Urine Negative (Negative); Blood,Urine Moderate (Negative); Clarity,Urine Clear (Clear); Color,Urine Light-Yellow (Yellow); Glucose,Urine (UA) Normal (Normal); Ketones,Urine Negative (Negative); Leukocyte Esterase,Urine Small (Negative); Nitrite,Urine Negative (Negative); PH,Urine 6.5 pH Units (5.0-8.0); Protein,Urine 50 mg/dL (Neg-Trace); RBC,Urine 50-100 per hpf (0-3); Specific Gravity,Urine 1.017 (1.010-1.025); Urobilinogen,Urine Normal (Normal)
[2020-11-23] MEDS ORDERED: IODINE PO SCH (06:30)
[2020-11-23 07:37] LABS: Basophils % 0.2 %; Eosinophils % 0.9 %; Hematocrit 30.4 % (35.3-44.9); Hemoglobin 9.2 g/dL (11.5-15.4); Lymphocytes # 0.6 K/mcL (0.6-4.6); Lymphocytes % 12.4 %; Mean Corpuscular HGB Conc 30.3 g/dL (31.6-35.5); Mean Corpuscular Hemoglobin 28.6 pg (28.0-33.3); Mean Corpuscular Volume 94.4 fL (83.0-100.0); Mean Platelet Volume 10.7 fL (9.4-12.4); Monocytes # 0.5 K/mcL (0.0-1.3); Monocytes % 11.7 %; Neutrophils # 3.3 K/mcL (1.6-8.9); Platelet Count 250 K/mcL (140-400); Red Blood Count 3.22 M/mcL (3.82-4.97); Red Cell Distribution Width 16.2 % (11.5-14.5); Segmented Neutrophils % 72.8 %; White Blood Count 4.5 K/mcL (4.3-11.1)
[2020-11-23] MEDS ORDERED: carvediloL 6.25 MG TABLET PO SCH (08:00)
[2020-11-23 08:04] LABS: Calcium 8.4 mg/dL (8.6-10.3); Magnesium 1.6 mg/dL (1.6-2.6); Phosphorous 2.3 mg/dL (2.7-4.5); Potassium 4.1 mEq/L (3.5-5.1)
[2020-11-23] MEDS ORDERED: Megestrol Acetate 400 MG/10 ML UDC PO SCH (09:00)
[2020-11-23] MEDS ORDERED: Folic Acid 1 MG TABLET PO SCH (09:00)
[2020-11-23] MEDS ORDERED: amLODIPine 5 MG TABLET PO SCH (09:00)
[2020-11-23] MEDS ORDERED: (Omega-3 Acid Ethyl Esters [Lovaza] 1 GM) PO SCH (09:00)
[2020-11-23] MEDS ORDERED: polyethylene glycoL 3350 17 GM POWD.PACK PO SCH (09:00)
[2020-11-23] MEDS ORDERED: 0.9 % Sodium Chloride 1,000 ML IVC SCH (13:15)
[2020-11-23 14:16] VITALS: BP 138/75
== END 2020-11-23 14:15 | disposition home health service (06) ==
LOC: 2NENU
PROVIDERS: ADMIT Student in an Organized Health Care Education/Training Program; ATTEND Student in an Organized Health Care Education/Training Program

== ENCOUNTER 2021-05-10 11:17 | Observation (INO) ==
[2021-05-10] MEDS ORDERED: 0.9 % Sodium Chloride 1,000 ML IVC ONE (12:03)
[2021-05-10] MEDS ORDERED: Isovue-370 500 ML BOTTLE IVP ONE (12:03)
[2021-05-10] MEDS ORDERED: Ondansetron 4 MG/2 ML VIAL IVP ONE (12:03)
[2021-05-10 13:49] LABS: Bacteria,Urine Few per hpf (None-Few); Bilirubin,Urine Negative (Negative); Blood,Urine Moderate (Negative); Budding Yeast,Urine Moderate per hpf (None Seen); Clarity,Urine Turbid (Clear); Color,Urine Yellow (Yellow); Glucose,Urine (UA) Normal (Normal); Ketones,Urine Trace mg/dL (Negative); Leukocyte Esterase,Urine Large (Negative); Mucus,Urine Few per lpf (None-Few); Nitrite,Urine Negative (Negative); PH,Urine 6.5 pH Units (5.0-8.0); Protein,Urine 200 mg/dL (Neg-Trace); Specific Gravity,Urine 1.016 (1.010-1.025); Urobilinogen,Urine Normal (Normal); WBC,Urine 50-100 per hpf (0-3)
[2021-05-10] MEDS ORDERED: Meropenem 2,000 MG in Water for inj. (sterile) 20 ML IVP ONE (14:09)
[2021-05-10 14:45] LABS: Basophils % 0.4 %; Eosinophils # 0.2 K/mcL (0.0-0.6); Eosinophils % 3.3 %; Hematocrit 34.6 % (35.3-44.9); Hemoglobin 11.1 g/dL (11.5-15.4); Immature Granulocytes % 0.6 % (0-4); Lymphocytes # 1.4 K/mcL (0.6-4.6); Lymphocytes % 26.6 %; Mean Corpuscular HGB Conc 32.1 g/dL (31.6-35.5); Mean Corpuscular Hemoglobin 32.1 pg (28.0-33.3); Mean Platelet Volume 9.9 fL (9.4-12.4); Monocytes # 0.9 K/mcL (0.0-1.3); Monocytes % 17.4 %; Neutrophils # 2.6 K/mcL (1.6-8.9); Platelet Count 285 K/mcL (140-400); Red Blood Count 3.46 M/mcL (3.82-4.97); Red Cell Distribution Width 21.5 % (11.5-14.5); Segmented Neutrophils % 51.7 %; White Blood Count 5.1 K/mcL (4.3-11.1)
[2021-05-10 15:06] LABS: Bilirubin,Urine Negative (Negative); Blood,Urine Small (Negative); Budding Yeast,Urine Many per hpf (None Seen); Clarity,Urine Turbid (Clear); Color,Urine Yellow (Yellow); Glucose,Urine (UA) Normal (Normal); Hyaline Casts,Urine Few per lpf (None Seen); Ketones,Urine 10 mg/dL (Negative); Leukocyte Esterase,Urine Small (Negative); Mucus,Urine Few per lpf (None-Few); Nitrite,Urine Negative (Negative); PH,Urine 6.5 pH Units (5.0-8.0); Protein,Urine >=300 mg/dL (Neg-Trace); Renal Epithelial Cells,Urine Few per hpf (None-Few); Specific Gravity,Urine 1.018 (1.010-1.025); Transitional Epi Cells,Urine Few per hpf (None-Few); Urobilinogen,Urine Normal (Normal); WBC,Urine 30-50 per hpf (0-3)
[2021-05-10 15:14] LABS: Albumin 3.4 g/dL (3.5-5.7); Albumin/Globulin Ratio 1.5 (1.1-2.2); Bilirubin,Direct 0.1 mg/dL (0.0-0.2); Bilirubin,Indirect 0.5 mg/dL (0.0-1.0); Bilirubin,Total 0.6 mg/dL (0.3-1.0); Calcium 8.5 mg/dL (8.6-10.3); Globulin 2.3 g/dL (2.4-3.5); Potassium 3.4 mEq/L (3.5-5.1); Total Protein 5.7 g/dL (6.4-8.9); Troponin I 0.04 ng/mL (< 0.04)
[2021-05-10] MEDS ORDERED: Melatonin 3 MG TABLET PO PRN (16:58)
[2021-05-10] MEDS ORDERED: Naloxone 0.4 MG/ML INJ IVP PRN (16:58)
[2021-05-10] MEDS ORDERED: Dextrose Gel 15 GM/37.5 ML TUBE PO PRN ×2 (17:03)
[2021-05-10] MEDS ORDERED: D5% in Water 1,000 ML IVC PRN (17:03)
[2021-05-10] MEDS ORDERED: *HR* Dextrose 50 % in Water (Vial) 50 ML VIAL IVP PRN (17:03)
[2021-05-10] MEDS ORDERED: Ringers Solution, Lactated 1,000 ML IVC SCH (17:15)
[2021-05-10 18:25] LABS: Troponin I 0.05 ng/mL (< 0.04)
[2021-05-10] MEDS ORDERED: Ondansetron ODT 4 MG TAB.RAPDIS PO PRN (19:52)
[2021-05-10] MEDS: Calcium Gluconate 1gm/50mL 1 GM/50 ML BAG IVPB SCH ×2 (21:13→23:38)
[2021-05-10] MEDS: Ondansetron 4 MG/2 ML VIAL IVP PRN (21:21)
[2021-05-10] MEDS: Artificial Tears SOLN 15 ML BOTTLE BOTH EYES SCH (21:32)
[2021-05-10] MEDS: carvediloL 6.25 MG TABLET PO SCH (21:34)
[2021-05-10] MEDS ORDERED: Saliva Stimulant 44.3ml BOTTLE PO PRN (22:26)
[2021-05-10] MEDS ORDERED: Ipratropium/Albuterol Neb 3 ML IH PRN (22:31)
[2021-05-10] MEDS: *HR* OxyCODONE/APAP 5/325 TABLET PO PRN (23:36)
[2021-05-11 05:45] LABS: Basophils % 0.5 %; Eosinophils # 0.2 K/mcL (0.0-0.6); Eosinophils % 3.8 %; Hemoglobin 11.2 g/dL (11.5-15.4); Lymphocytes # 1.3 K/mcL (0.6-4.6); Lymphocytes % 21.5 %; Mean Corpuscular HGB Conc 32.9 g/dL (31.6-35.5); Mean Corpuscular Hemoglobin 32.5 pg (28.0-33.3); Mean Corpuscular Volume 98.6 fL (83.0-100.0); Mean Platelet Volume 9.8 fL (9.4-12.4); Monocytes % 18.8 %; Neutrophils # 3.3 K/mcL (1.6-8.9); Nucleated Red Blood Cells 0.3 /100 WBC (0); Platelet Count 310 K/mcL (140-400); Red Blood Count 3.45 M/mcL (3.82-4.97); Red Cell Distribution Width 21.7 % (11.5-14.5); Segmented Neutrophils % 54.4 %; White Blood Count 6.1 K/mcL (4.3-11.1)
[2021-05-11 05:52] LABS: Monocytes # 1.2 K/mcL (0.0-1.3)
[2021-05-11 05:53] LABS: INR 1.6; Prothrombin Time 17.7 Seconds (9.4-12.1)
[2021-05-11 06:03] LABS: Albumin 3.1 g/dL (3.5-5.7); Albumin/Globulin Ratio 1.5 (1.1-2.2); Bilirubin,Total 0.5 mg/dL (0.3-1.0); Calcium 8.2 mg/dL (8.6-10.3); Chol/HDL Ratio 5.5 (0-4.9); Globulin 2.1 g/dL (2.4-3.5); Magnesium 1.5 mg/dL (1.6-2.6); Phosphorous 1.7 mg/dL (2.7-4.5); Potassium 3.8 mEq/L (3.5-5.1); Total Protein 5.2 g/dL (6.4-8.9)
[2021-05-11 06:08] LABS: Troponin I 0.06 ng/mL (< 0.04)
[2021-05-11 06:25] LABS: Thyroid Stimulating Hormone 13.858 mcIU/mL (0.340-5.600)
[2021-05-11 06:26] LABS: Folate 14.7 ng/mL (3.0-16.0)
[2021-05-11 06:29] LABS: Vitamin B12 > 1500 pg/mL (250-1100)
[2021-05-11] MEDS: *HR* Heparin 5,000 UNIT/ML VIAL SQ SCH ×2 (06:35→18:38)
[2021-05-11 06:39] LABS: Anisocytosis 1+ (Not Present); Poikilocytosis 1+ (Not Present)
[2021-05-11 06:40] LABS: Platelet Estimate Normal (Normal)
[2021-05-11] MEDS: Ondansetron 4 MG/2 ML VIAL IVP PRN (06:57)
[2021-05-11] MEDS ORDERED: Saliva Stimulant 44.3ml BOTTLE PO PRN (08:41)
[2021-05-11] MEDS ORDERED: Multivit/Ca/Min/Fe/FA 1 TAB TABLET PO SCH (09:00)
[2021-05-11] MEDS ORDERED: Potassium Phosphate 44 MEQ in 0.9 % Sodium Chloride 250 ML IVPB ONE (09:00)
[2021-05-11] MEDS ORDERED: Iron Sucrose Complex 400 MG in 0.9 % Sodium Chloride 250 ML IVPB ONE (09:00)
[2021-05-11] MEDS: Chlorhexidine Rinse 15 ML MOUTHWASH MM SCH ×2 (09:43→21:58)
[2021-05-11] MEDS: carvediloL 6.25 MG TABLET PO SCH ×2 (09:43→17:10)
[2021-05-11] MEDS: Aspirin 81 MG TAB.CHEW PO SCH (09:43)
[2021-05-11] MEDS: Artificial Tears SOLN 15 ML BOTTLE BOTH EYES SCH ×2 (09:44→21:58)
[2021-05-11] MEDS: Ertapenem 1,000 MG in 0.9 % Sodium Chloride Mini Bag 100 ML IVPB SCH (09:51)
[2021-05-11 10:14] LABS: Triiodothyronine (T3) Total 0.5 ng/mL (0.87-1.78)
[2021-05-11] MEDS ORDERED: Acetaminophen IV 1,000 MG/100 ML BAG IVPB ONE (11:23)
[2021-05-11] MEDS: Haloperidol Lactate 5 MG/ML VIAL IVP PRN (14:22)
[2021-05-11] MEDS: Calcium Gluconate 1gm/50mL 1 GM/50 ML BAG IVPB SCH ×2 (16:21→17:25)
[2021-05-11] MEDS: Albumin 25% 25gram/100mL 25 GM/100 ML IV.SOLN IVPB SCH (18:29)
[2021-05-11] MEDS: Furosemide 20 MG/2 ML VIAL IVP SCH (18:58)
[2021-05-11 20:39] VITALS: BP 106/69
[2021-05-12] MEDS: *HR* OxyCODONE/APAP 5/325 TABLET PO PRN (00:25)
[2021-05-12] MEDS: *HR* Heparin 5,000 UNIT/ML VIAL SQ SCH (05:17)
[2021-05-12] MEDS ORDERED: IODINE PO SCH (06:30)
[2021-05-12 07:40] LABS: Basophils % 0.6 %; Eosinophils # 0.5 K/mcL (0.0-0.6); Eosinophils % 9.4 %; Hematocrit 32.2 % (35.3-44.9); Hemoglobin 10.5 g/dL (11.5-15.4); Immature Granulocytes % 0.9 % (0-4); Lymphocytes # 1.3 K/mcL (0.6-4.6); Lymphocytes % 24.8 %; Mean Corpuscular HGB Conc 32.6 g/dL (31.6-35.5); Mean Corpuscular Hemoglobin 32.2 pg (28.0-33.3); Mean Corpuscular Volume 98.8 fL (83.0-100.0); Mean Platelet Volume 9.8 fL (9.4-12.4); Monocytes % 18.2 %; Nucleated Red Blood Cells 0.8 /100 WBC (0); Platelet Count 298 K/mcL (140-400); Red Blood Count 3.26 M/mcL (3.82-4.97); Red Cell Distribution Width 22.3 % (11.5-14.5); Segmented Neutrophils % 46.1 %; White Blood Count 5.3 K/mcL (4.3-11.1)
[2021-05-12 07:41] LABS: Neutrophils # 2.4 K/mcL (1.6-8.9)
[2021-05-12 07:52] LABS: Albumin 3.3 g/dL (3.5-5.7); Albumin/Globulin Ratio 1.9 (1.1-2.2); Bilirubin,Total 0.4 mg/dL (0.3-1.0); Calcium 8.2 mg/dL (8.6-10.3); Globulin 1.7 g/dL (2.4-3.5); Magnesium 2.3 mg/dL (1.6-2.6); Phosphorous 2.7 mg/dL (2.7-4.5); Potassium 3.6 mEq/L (3.5-5.1)
[2021-05-12] MEDS: carvediloL 6.25 MG TABLET PO SCH (08:22)
[2021-05-12] MEDS: Albumin 25% 25gram/100mL 25 GM/100 ML IV.SOLN IVPB SCH (08:23)
[2021-05-12] MEDS: Furosemide 20 MG/2 ML VIAL IVP SCH (08:24)
[2021-05-12] MEDS: Ertapenem 1,000 MG in 0.9 % Sodium Chloride Mini Bag 100 ML IVPB SCH (08:31)
[2021-05-12] MEDS: Chlorhexidine Rinse 15 ML MOUTHWASH MM SCH (08:48)
[2021-05-12] MEDS: Aspirin 81 MG TAB.CHEW PO SCH (08:48)
[2021-05-12] MEDS: Artificial Tears SOLN 15 ML BOTTLE BOTH EYES SCH (08:48)
[2021-05-12] MEDS: Haloperidol Lactate 5 MG/ML VIAL IVP PRN (08:48)
[2021-05-12] MEDS ORDERED: Multivitamin Liquid 15 ML UDC PO SCH (09:00)
[2021-05-12] MEDS ORDERED: dexAMETHasone 4 MG TABLET PO SCH (11:00)
[2021-05-12] MEDS ORDERED: Ascorbic Acid 500 MG TABLET PO SCH (18:00)
[2021-05-12] MEDS ORDERED: OLANZapine 5 MG TAB.RAPDIS PO SCH (21:00)
== END 2021-05-12 14:40 | disposition hospice, home (50) ==
LOC: SUATTDRO → EMEROOARM 11:17 → 3ANU 11:17 → SUATTDRO 16:49
PROVIDERS: ADMIT Internal Medicine; ATTEND Internal Medicine